=== PATIENT | male | born 1975 | race Caucasian/White ===

== ENCOUNTER 2019-04-22 08:32 | Emergency (ER) | payer SELFPAY ==
[2019-04-22 08:43] VITALS: BP 138/85; PULSE 91; RESP 16; TEMP 36.8; O2SAT 93; BMI 26.6
--- NOTE | 2019-04-22 08:46 | ED_ITS ---
HPI - Head Injury General Chief complaint: Fall Stated complaint: Fall,face injury, difficulty remembering Time Seen by Provider: 04/22/19 08:45 Source: patient Mode of arrival: Ambulatory Limitations: no limitations History of Present Illness HPI Narrative: This is a 43-year-old male comes to the emergency department with complaint of facial injuries. Patient states last night he was celebrating completing a tile job. Patient states he had 2 beers, he stumbled or tripped off a porch that was between 1 and 3 ft high falling onto his face and left hand. Patient states he has quite a bit of pain trying to move his jaw, he has laceration on his lip, he states his teeth feel intact. Patient states he had a headache last night it is improving now he has some bruising underneath his eye. Patient states he has broken his draw in the past and required surgery as well as what sounds like his maxillary bone. Patient states he has a history of PTSD and he is taking medication for this but does not take any other medications regularly. He denies any other surgeries. He states that he has pain in the proximal joint of his thumb he has difficulty with movement. He has a bit of abnormal anatomy but it is the same as the other hand. Patient describes them as monkey thumbs. He denies any nausea or vomiting, no chest pain or shortness of breath, no issues with bowel movements or urination. He denies any other injuries. He states his tetanus is definitely up-to-date. Related Data Previous Rx's Medication Instructions Recorded hydrocodone-acetaminophen [Chaplin] 1 tab PO Q6H PRN #10 tab 04/22/19 Allergies Allergy/AdvReac Type Severity Reaction Status Date / Time acetaminophen AdvReac Intermediate Verified 04/22/19 10:06 Review of Systems Review of Systems ROS Unobtainable: All systems reviewed & are unremarkable except as noted in HPI and below Patient History Medical History (Updated 04/22/19 @ 10:00 by Naomi Romero DO) PTSD (post-traumatic stress disorder) (Acute) Social History Smoking Status: Never smoker Exam Narrative Exam Narrative: GEN: Patient appears in mild distress. HEAD: See below, no raccoon/Irby sign. NECK: Nontender, painless range of motion, trachea midline Positive Nexus criteria, there is no line tenderness, distracting injury, altered mental status, neuro deficit, recent EtOH which was at midnight. EYES: PERRLA, EOMI ENT: Patient has some infraorbital ecchymosis on the left eye, he has a little bit of subconjunctival hemorrhage on the lateral left eye, trachea is midline, TM's are normal no hemotypanum, Nares are clear, no septal hematoma, no dental injury, patient has superficial laceration at the middle of lower lip slightly gapped and abrasion of the upper lip on the left inner side, there is no through and through, it is fairly superficial, airway is normal, patient has pain trying to open his jaw, he has some bony tenderness over the right mandible region. No obvious deformity. RESP: Chest is nontender and has symmetric movement, no ecchymosis, breath sounds are normal no crackles, wheezes or rales CVS: Heart sounds are normal, no murmur noted, No JVD. ABG/GI: Nontender, soft, normal bowel sounds, no distention, no organomegaly, pelvic rock is negative NEURO: Oriented AOx3, neuro is grossly intact, sensation and motor is normal all 4 extremities moving, cranial nerves II through XII are intact, GCS is 15 PSYCH: Normal mood and affect SKIN: Intact except as described above, warm and dry, no crepitus and without decubitus BACK: No CVA tenderness, no vertebral tenderness, no step-off's, no crepitus EXT: Atraumatic, patient's left thumb has some slight erythema he has pain and difficulty flexing at the thumb, he has normal sensation, he has some anatomic abnormality but this is the same as the right hand. No lacerations, no ecchymosis. Hips are nontender, no pedal edema, normal color and temperature, normal range of motion of extremities with normal tendon exam, 2+ pulses in all four extremities Initial Vital Signs Initial Vital Signs: Vital Signs Temperature 98.2 F 04/22/19 08:43 Pulse Rate 91 H 04/22/19 08:43 Respiratory Rate 16 04/22/19 08:43 Blood Pressure 138/85 04/22/19 08:43 Pulse Oximetry 93 04/22/19 08:43 Course Orders Ordered: ED Orders 04/22/19 09:01 CT cervical spine wo con Stat CT facial bones wo con Stat CT head/brain wo con Stat XR hand LT min 3V Stat Discontinued Medications Acetaminophen (Tylenol) 975 mg PO NOW ONE Stop: 04/22/19 10:00 Last Admin: 04/22/19 11:09 Dose: Not Given Documented by: ANA Hydrocodone Bitart/Acetaminophen (Chaplin 5/325) 1 tab PO NOW ONE Stop: 04/22/19 10:45 Last Admin: 04/22/19 11:15 Dose: Not Given Documented by: ANA Ibuprofen (Advil) 800 mg PO NOW ONE Stop: 04/22/19 11:10 Last Admin: 04/22/19 11:22 Dose: 800 mg Documented by: ANA Ibuprofen (Advil) 400 mg PO NOW ONE Stop: 04/22/19 11:15 Last Admin: 04/22/19 11:14 Dose: Not Given Documented by: ANA Vital Signs Vital signs: Vital Signs - 8 hr 04/22/19 11:15 Pulse Rate 86 Respiratory Rate 18 Blood Pressure [Right Arm] 105/81 Pulse Oximetry 98 MDM - Head Injury Imaging Data CT scan - head: Radiologist's impression: [place] [address] CT Scan Report Signed Patient: Rico Martínez JMR#: [id number] : 1975Acct:[id number] Age/Sex: 43 / MDate of Service: 04/22/19 Loc: ED Accession Number: [id number] Procedure: CT head/brain wo con Ordering Provider: Naomi Romero D.O. PROCEDURE: CT HEAD/BRAIN WO CON INDICATIONS: ground level fall TECHNIQUE: Noncontrast 4.5 mm thick angled axial sections acquired from the foramen magnum to the vertex, with coronal and sagittal reformats. For radiation dose reduction, the following was used: automated exposure control, adjustment of mA and/or kV according to patient size. COMPARISON: [facility], CR, XR HAND LT MIN 3V, 04/22/2019, 9:02. [facility], CT, CT FACIAL BONES WO CON, 04/22/2019, 9:01. [facility], CT, CT CERVICAL SPINE WO CON, 04/22/2019, 9:01. FINDINGS: Image quality: Excellent. CSF spaces: Basal cisterns are patent. No extra-axial fluid collections. Ventricles are normal in size and shape. Brain: No midline shift. No intracranial masses or hemorrhage. Sanchez-white matter interface is normal. Skull and face: Calvarium and visualized facial bones are intact, without suspicious lesions. Sinuses: Visualized sinuses and mastoids are clear. IMPRESSION: Normal intracranial study. No acute intracranial hemorrhage is seen. Dictated by: Noam Thomas M.D. on 04/22/2019 at 8:33 Approved by: oNam Thomas M.D. on 04/22/2019 at 8:35 CT facial bones: Radiologist's impression: [address] [address] [address] Scan Report Signed Patient: Rico Martínez JMR#: [id number] : 1975Acct:[id number] Age/Sex: 43 / MDate of Service: 04/22/19 Loc: ED Accession Number: [id number] Procedure: CT facial bones wo con Ordering Provider: Naomi Roemro D.O. PROCEDURE: CT FACIAL BONES WO CON INDICATIONS: ground level fall TECHNIQUE: Noncontrast 2.5 mm thick axial images acquired from the mandible through the frontal sinuses, with coronal and sagittal reformatting. For radiation dose reduction, the following was used: automated exposure control, adjustment of mA and/or kV according to patient size. COMPARISON: [facility], CR, XR HAND LT MIN 3V, 04/22/2019, 9:02. [facility], CT, CT HEAD/BRAIN WO CON, 04/22/2019, 9:01. [facility], CT, CT CERVICAL SPINE WO CON, 04/22/2019, 9:01. FINDINGS: Image quality: Excellent. Bones and teeth: Orbital thorpe are intact. Sinus thorpe show no fracture or deformity. Nasal bones and septum are intact. Visualized portions of the mandible demonstrate no fractures or subluxation. Zygomatic arches are intact. Pterygoid plates are intact. Visualized portions of the skull base and auditory canals are intact. There is a bone fissure seen on the right external auditory canal, as on series 4 images 79 and 80, which demonstrates a well corticated appearance and is attributed to a fusion anomaly and not an acute fracture. Sinuses: Paranasal sinuses are aerated, without fluid levels, mucosal thickening, or mucoceles. Mastoid air cells are aerated. Soft tissues: No edema, masses, or fluid collections. No enlarged lymph nodes. No soft tissue lacerations or debris. There is mild to moderate rightward chronic nasal septal deviation. Vascular: Visualized vascular structures appear normal in the absence of contrast. Bony vascular foramina and canals are intact. IMPRESSION: No acute fractures are seen. Dictated by: Noam Thomas M.D. on 04/22/2019 at 8:37 Approved by: Noam Thomas M.D. on 04/22/2019 at 8:39 CT cervical spine: Radiologist's impression: [place] [address] CT Scan Report Signed Patient: Rico Martínez JMR#: [id number] : 1975Acct:[id number] Age/Sex: 43 / MDate of Service: 04/22/19 Loc: ED Accession Number: [id number] Procedure: CT cervical spine wo con Ordering Provider: Naomi Romero D.O. PROCEDURE: CT CERVICAL SPINE WO CON INDICATIONS: ground level fall TECHNIQUE: Noncontrast 3 mm thick sections acquired from the skull base to the T4 level. Sagittal and coronal reformats were then constructed. For radiation dose reduction, the following was used: automated exposure control, adjustment of mA and/or kV according to patient size. COMPARISON: [facility], CR, XR HAND LT MIN 3V, 04/22/2019, 9:02. [facility], CT, CT HEAD/BRAIN WO CON, 04/22/2019, 9:01. [facility], CT, CT FACIAL BONES WO CON, 04/22/2019, 9:01. FINDINGS: Image quality: Excellent. Bones: No fractures or dislocations. Visualized superior ribs are intact. Focal C3-C4 degenerative change is seen, with mild to moderate disc space narrowing. Posteriorly projected endplate osteophytes are seen. Mild degenerative changes are seen elsewhere. Soft tissues: Prevertebral soft tissues are normal in thickness. No paravertebral hematomas. No apical pneumothoraces. IMPRESSION: No acute fractures are seen. Focal premature C3-C4 degenerative change. Dictated by: Noam Thomas M.D. on 04/22/2019 at 8:35 Approved by: Noam Thomas M.D. on 04/22/2019 at 8:37 hand xray: Radiologist's impression: Rico Martínez 43 M [address] [address] XRay Report Signed Patient: Rico Martínez JMR#: [id number] : 1975Acct:[id number] Age/Sex: 43 / MDate of Service: 04/22/19 Loc: ED Accession Number: [id number] Procedure: XR hand LT min 3V Ordering Provider: Naomi Romero D.O. PROCEDURE: XR HAND LT MIN 3V INDICATIONS: pain proximal thumb joint TECHNIQUE: 3 views of the hand(s) acquired. COMPARISON: [facility], CT, CT FACIAL BONES WO [facility], 04/22/2019, 9:01. [facility], CT, CT HEAD/BRAIN WO CON, 04/22/2019, 9:01. [facility], CT, CT CERVICAL SPINE WO CON, 04/22/2019, 9:01. FINDINGS: Bones: There is a potential fracture seen involving the distal 1st metacarpal. No additional focal bony abnormalities can be seen. Soft tissues: No suspicious soft tissue calcifications. IMPRESSION: Potential fracture of the distal 1st metacarpal. Differential diagnosis includes remote trauma, however. If it would be helpful for clinical management decision making, please consider a dedicated CT for further evaluation. Dictated by: Noam Thomas M.D. on 04/22/2019 at 8:39 Approved by: Noam Thomas M.D. on 04/22/2019 at 8:40 [facility] Narrative Medical decision making narrative: Patient has no fractures noted on CTs, xray on hand shows possible fracture 1st metacarpal and patient is tender, placed in thumb spica, nvi intact, plan for follow up with Orthopedic surgery this week. lip lacerations are superficial and should heal well without intervention. Patient ambulating in department without issue. Discharge Plan Departure Patient Disposition: Home Clinical Impression: First metacarpal bone fracture Qualifiers: Encounter type: initial encounter Fracture type: closed Laterality: left Laceration of lip Qualifiers: Encounter type: initial encounter Qualified Code(s): S01.511A - Laceration without foreign body of lip, initial encounter Head injury Qualifiers: Encounter type: initial encounter Qualified Code(s): S09.90XA - Unspecified injury of head, initial encounter Discharge Date/Time: 04/22/19 11:24 Instructions: Hand Fracture Activity Restrictions/Additional Instructions: Follow-up with Orthopedic surgery in the next 3-5 days, call Tuesday for an appointment. You may take Tylenol up to a 1000 mg every 8 hours as needed for pain. You take Chaplin 1 tablet every 6-8 hours as needed for pain instead of Tylenol. Do not take more than 3000 mg of Tylenol total in 24 hours. Chaplin does have 325 mg about Tylenol in each tablet. Splint Care: Keep splint clean and dry. Elevated affected body part to decrease swelling. OK to use ice pack on the affected body part. Use for 15-20 minutes each time, for 5-6x per day. If you develop worsening pain, numbness, tingling, discoloration of the affected body part, loosen the splint by loosening the NIRAJ wrap, and either see your doctor for an urgent re-assessment, or return to the Emergency Department. Return to the Emergency Department for any new or worsening symptoms. return if you are having sudden severe headaches, new vision changes, passing out, persistent vomiting, new weakness numbness or loss of sensation other new or concerning symptoms. Prescriptions: New hydrocodone-acetaminophen [Chaplin] 5-325 mg tablet 1 tab PO Q6H PRN (Reason: pain) Qty: 10 RF: 0 Referrals: Maciej Dumont MD [Physician] -
--- NOTE | 2019-04-22 09:01 | DI.CT.S_ITS ---
PROCEDURE: CT FACIAL BONES WO CON INDICATIONS: ground level fall TECHNIQUE: Noncontrast 2.5 mm thick axial images acquired from the mandible through the frontal sinuses, with coronal and sagittal reformatting. For radiation dose reduction, the following was used: automated exposure control, adjustment of mA and/or kV according to patient size. COMPARISON: [facility], CR, XR HAND LT MIN 3V, 04/22/2019, 9:02. [facility], CT, CT HEAD/BRAIN WO CON, 04/22/2019, 9:01. [facility], CT, CT CERVICAL SPINE WO CON, 04/22/2019, 9:01. FINDINGS: Image quality: Excellent. Bones and teeth: Orbital thorpe are intact. Sinus thorpe show no fracture or deformity. Nasal bones and septum are intact. Visualized portions of the mandible demonstrate no fractures or subluxation. Zygomatic arches are intact. Pterygoid plates are intact. Visualized portions of the skull base and auditory canals are intact. There is a bone fissure seen on the right external auditory canal, as on series 4 images 79 and 80, which demonstrates a well corticated appearance and is attributed to a fusion anomaly and not an acute fracture. Sinuses: Paranasal sinuses are aerated, without fluid levels, mucosal thickening, or mucoceles. Mastoid air cells are aerated. Soft tissues: No edema, masses, or fluid collections. No enlarged lymph nodes. No soft tissue lacerations or debris. There is mild to moderate rightward chronic nasal septal deviation. Vascular: Visualized vascular structures appear normal in the absence of contrast. Bony vascular foramina and canals are intact. IMPRESSION: No acute fractures are seen. Dictated by: Noam Thomas M.D. on 04/22/2019 at 8:37 Approved by: Noam Thomas M.D. on 04/22/2019 at 8:39
--- NOTE | 2019-04-22 09:01 | DI.CT.S_ITS ---
PROCEDURE: CT HEAD/BRAIN WO CON INDICATIONS: ground level fall TECHNIQUE: Noncontrast 4.5 mm thick angled axial sections acquired from the foramen magnum to the vertex, with coronal and sagittal reformats. For radiation dose reduction, the following was used: automated exposure control, adjustment of mA and/or kV according to patient size. COMPARISON: [facility], CR, XR HAND LT MIN 3V, 04/22/2019, 9:02. [facility], CT, CT FACIAL BONES WO CON, 04/22/2019, 9:01. [facility], CT, CT CERVICAL SPINE WO CON, 04/22/2019, 9:01. FINDINGS: Image quality: Excellent. CSF spaces: Basal cisterns are patent. No extra-axial fluid collections. Ventricles are normal in size and shape. Brain: No midline shift. No intracranial masses or hemorrhage. Sanchez-white matter interface is normal. Skull and face: Calvarium and visualized facial bones are intact, without suspicious lesions. Sinuses: Visualized sinuses and mastoids are clear. IMPRESSION: Normal intracranial study. No acute intracranial hemorrhage is seen. Dictated by: Noam Thomas M.D. on 04/22/2019 at 8:33 Approved by: Noam Thomas M.D. on 04/22/2019 at 8:35
--- NOTE | 2019-04-22 09:01 | DI.RAD.S_ITS ---
PROCEDURE: XR HAND LT MIN 3V INDICATIONS: pain proximal thumb joint TECHNIQUE: 3 views of the hand(s) acquired. COMPARISON: [facility], CT, CT FACIAL BONES WO [facility], 04/22/2019, 9:01. [facility], CT, CT HEAD/BRAIN WO [facility], 04/22/2019, 9:01. [facility], CT, CT CERVICAL SPINE WO [facility], 04/22/2019, 9:01. FINDINGS: Bones: There is a potential fracture seen involving the distal 1st metacarpal. No additional focal bony abnormalities can be seen. Soft tissues: No suspicious soft tissue calcifications. IMPRESSION: Potential fracture of the distal 1st metacarpal. Differential diagnosis includes remote trauma, however. If it would be helpful for clinical management decision making, please consider a dedicated CT for further evaluation. Dictated by: Noam Thomas M.D. on 04/22/2019 at 8:39 Approved by: Noam Thomas M.D. on 04/22/2019 at 8:40
--- NOTE | 2019-04-22 09:01 | DI.CT.S_ITS ---
PROCEDURE: CT CERVICAL SPINE WO CON INDICATIONS: ground level fall TECHNIQUE: Noncontrast 3 mm thick sections acquired from the skull base to the T4 level. Sagittal and coronal reformats were then constructed. For radiation dose reduction, the following was used: automated exposure control, adjustment of mA and/or kV according to patient size. COMPARISON: [facility], CR, XR HAND LT MIN 3V, 04/22/2019, 9:02. [facility], CT, CT HEAD/BRAIN WO CON, 04/22/2019, 9:01. [facility], CT, CT FACIAL BONES WO CON, 04/22/2019, 9:01. FINDINGS: Image quality: Excellent. Bones: No fractures or dislocations. Visualized superior ribs are intact. Focal C3-C4 degenerative change is seen, with mild to moderate disc space narrowing. Posteriorly projected endplate osteophytes are seen. Mild degenerative changes are seen elsewhere. Soft tissues: Prevertebral soft tissues are normal in thickness. No paravertebral hematomas. No apical pneumothoraces. IMPRESSION: No acute fractures are seen. Focal premature C3-C4 degenerative change. Dictated by: Noam Thomas M.D. on 04/22/2019 at 8:35 Approved by: Noam Thomas M.D. on 04/22/2019 at 8:37
[2019-04-22 11:15] VITALS: BP 105/81; PULSE 86; RESP 18; O2SAT 98
[2019-04-22] MEDS: IBUPROFEN 400 MG TABLET 800 MG PO (11:22)
== END 2019-04-22 11:24 | disposition home or self-care (01) ==
PROVIDERS: Emergency Provider Emergency Medicine
DX: S62.202A Unspecified fracture of first metacarpal bone, left hand, initial encounter for closed fracture (principal); S01.511A Laceration without foreign body of lip, initial encounter; S09.90XA Unspecified injury of head, initial encounter; W10.8XXA Fall (on) (from) other stairs and steps, initial encounter
CPT/HCPCS: 70450; 70486; 72125; 73130; 99283; 99284

== ENCOUNTER → 2019-11-16 10:50 | Outpatient (CLI) | payer MEDICARE, OTHER, MEDICAID, SELFPAY ==
--- NOTE | 2019-11-16 | DI.RAD.S_ITS ---
PROCEDURE: XR LUMBAR SPINE MIN 4V INDICATIONS: LOW BACK PAIN FROM FALL TECHNIQUE: 5 total views of the lumbar spine were acquired, including bilateral oblique views. COMPARISON: None. FINDINGS: Bones: Grade 1 anterolisthesis is seen at the L5-S1 level, with associated bilateral pars defects. No additional pars fractures are seen. There is minimal retrolisthesis seen at L4-L5 level. 5 nonrib-bearing vertebrae are present. No vertebral body compression fractures. No suspicious bony lesions. There is mild disc space narrowing at L4-L5 and moderate disc space narrowing at L5-S1. Endplate irregularity and sclerosis are seen, which are most prominent at the L5-S1 level. Soft tissues: Overlying bowel gas pattern is normal. No suspicious soft tissue calcifications. IMPRESSION: Grade 1 L5-S1 anterolisthesis, with associated bilateral pars defects and associated degenerative change. Dictated by: Noam Thomas M.D. on 11/16/2019 at 12:04 Approved by: Noam Thomas M.D. on 11/16/2019 at 12:05
== END ==
PROVIDERS: Referring Provider Physician Assistant; Visit Provider Physician Assistant
DX: M54.5 Low back pain (principal); M43.17 Spondylolisthesis, lumbosacral region; M47.817 Spondylosis without myelopathy or radiculopathy, lumbosacral region
CPT/HCPCS: 72110

== ENCOUNTER 2020-01-19 01:41 | Emergency (ER) | payer MEDICARE, OTHER, MEDICAID, SELFPAY ==
[2020-01-19 01:50] VITALS: BP 150/79; PULSE 73; RESP 16; TEMP 36.6; O2SAT 100; BMI 26.6
--- NOTE | 2020-01-19 01:50 | DI.US.S_ITS ---
PROCEDURE: US PERIPH VENOUS LOW EXTREM LT INDICATIONS: PAIN, SWELLING, RECENT INJURY TECHNIQUE: Real-time imaging, as well as color and pulse Doppler interrogation, were performed of the lower extremity deep veins from the inguinal ligament to the popliteal fossa. COMPARISON: None. FINDINGS: The common femoral, femoral and popliteal veins are normally compressible, and free of intraluminal thrombus. Color and pulse Doppler demonstrate normal phasic intraluminal flow. There is normal augmentation response to distal compression maneuver. Left lower extremity edema is present. IMPRESSION: 1. No evidence of left lower extremity DVT. 2. Left lower extremity edema. 3. Concordant with preliminary interpretation. Dictated by: Kindra Sweet M.D. on 01/19/2020 at 7:28 Approved by: Kindra Sweet M.D. on 01/19/2020 at 7:29
--- NOTE | 2020-01-19 01:50 | DI.RAD.S_ITS ---
PROCEDURE: XR HIP W PEL IF DONE LT 2V INDICATIONS: fall with left hip pain TECHNIQUE: AP pelvis with lateral view(s) of the left hip(s). COMPARISON: None. FINDINGS: Bones: No fractures or dislocations. Pelvic ring appears intact. No suspicious bony lesions. Mild bilateral hip joint space narrowing and periarticular osteophyte formation. Soft tissues: The visualized bowel gas pattern is normal. No suspicious soft tissue calcifications. IMPRESSION: No acute fracture. No osseous lesion. If symptoms and/or clinical suspicion for pathology persist, further assessment with repeat, or advanced imaging (e.g., CT, MRI, or bone scan) may be helpful for further assessment. Dictated by: Kindra Sweet M.D. on 01/19/2020 at 6:58 Approved by: Kindra Sweet M.D. on 01/19/2020 at 6:59
[2020-01-19 01:51] VITALS: PULSE 74; O2SAT 99
[2020-01-19 02:00] VITALS: PULSE 66; O2SAT 96
[2020-01-19 02:01] VITALS: BP 118/64; PULSE 63; O2SAT 98
[2020-01-19 02:30] VITALS: BP 129/60; PULSE 61; O2SAT 97
[2020-01-19 02:30] LABS: Hematocrit 32.6 % (41-53); Hemoglobin 10.9 g/dL (13.5-17.5)
[2020-01-19 03:00] VITALS: PULSE 62; O2SAT 98
--- NOTE | 2020-01-19 03:25 | ED_ITS ---
HPI - Extremity Injury (Lower) General Chief Complaint: Extremity Injury, Lower Stated Complaint: bruise most of left side with swelling Time Seen by Provider: 01/19/20 01:44 Source: patient Mode of arrival: Ambulatory Limitations: no limitations History of Present Illness HPI Narrative: 44 year old male non smoker with history of PTSD presents with a significant other and the chief complaint of ongoing left hip pain and bruising for the past few days. A few days ago he was on a rope swing and fell from a few feet onto his left hip. He was seen and evaluated at an outside facility on the first day and had a reassuring exam with normal imaging. Since then he has developed a larger hematoma on his left hip and thigh and now has some swelling in his calf as well. He denies other injury. He denies numbness or tingling. He takes no blood thinners. His pain worsens with motion and palpation and improves with rest MD complaint: hip injury Onset (ago): day(s) Injury: Left: hip Type of Injury: blunt Place: street/outdoors Severity: moderate Relieving factors: rest Exacerbating factors: movement and palpation Context: fall and direct blow Associated symptoms: ambulatory Other symptoms: none Treatments prior to arrival: cold therapy and NSAIDS Related Data Previous Rx's Medication Instructions Recorded hydrocodone-acetaminophen [[place]] 1 tab PO Q6H PRN #10 tab 04/22/19 ketorolac 10 mg PO Q6H PRN #14 tab 01/19/20 ketorolac 10 mg PO TID PRN 5 Days tab 01/19/20 tramadol 50 mg PO Q8H PRN #14 tab 01/19/20 Allergies Allergy/AdvReac Type Severity Reaction Status Date / Time acetaminophen AdvReac Intermediate Verified 04/22/19 10:06 Review of Systems Constitutional Constitutional: Denies chills, Denies fatigue, Denies fever(s), Denies frequent falls, Denies lethargy and Denies weakness Eyes Eyes: Denies change in vision, Denies eye discharge, Denies irritation and Denies loss of vision ENT Ears, Nose, Mouth, and Throat: Denies change in voice, Denies dizziness, Denies neck pain, Denies sore throat and Denies throat swelling Cardiovascular Cardiovascular: Denies chest pain, Denies irregular heart rhythm, Denies ligh theadedness, Denies palpitations, Denies dyspnea, Denies dyspnea on exertion and Denies orthopnea Respiratory Respiratory: Denies cough, Denies dyspnea, Denies dyspnea on exertion and Denies wheezing Gastrointestinal Gastrointestinal: Denies abdominal pain, Denies change in bowel habits, Denies diarrhea, Denies nausea and Denies vomiting Musculoskeletal Musculoskeletal: Reports joint swelling, Reports limited range of motion, Denies neck pain and Denies numbness Integumentary/Breasts Skin/Breast: Denies pruritus, Denies erythema, Denies rash, Reports skin pain, Reports skin swelling, Reports unusual bruising and Denies wounds Neurologic Neurologic: Denies behavioral changes, Denies confusion, Denies dizziness, Denies frequent falls, Denies loss of vision, Denies numbness and Denies weakness Psychiatric Psychiatric: Denies anxiety, Denies behavioral changes, Denies confusion, Denies depression, Denies homicidal ideation and Denies suicidal ideation Endocrine Endocrine: Denies fatigue, Denies flushing and Denies palpitations Hematologic/Lymphatic Hematologic/Lymphatic: Denies easy bruising Allergic/Immunologic Allergic/Immunologic: Denies urticaria, Denies throat swelling and Denies whe ezing Patient History Medical History PTSD (post-traumatic stress disorder) (Acute) Social History Smoking Status: Never smoker Smoking Status: Never smoker alcohol intake frequency: 0-2 drinks per day Substance Use Type: marijuana Exam Narrative Exam Narrative: GENERAL: [44] year old patient appears stated age. Well- nourished, well-developed patient, in mild distress. GCS 15 HEAD: Atraumatic. Normocephalic. EYES: Pupils equal round and reactive. Extraocular motions intact. No scleral icterus. No injection or drainage. ENT: Nose without bleeding, purulent drainage. Throat without erythema, t onsillar hypertrophy or exudate. Airway patent. NECK: Trachea midline. Non tender CARDIOVASCULAR: Regular rate and rhythm without murmurs, gallops, or rubs. RESPIRATORY: Clear to auscultation. Breath sounds equal bilaterally. No wheezes, rales, or rhonchi. GASTROINTESTINAL: Abdomen soft, non-tender, nondistended. EXTREMITIES: Large dark purple hematoma on left hip and lateral thigh. Minimal bony point tenderness, compartments are soft, patient has full range of motion and remained neurovascularly intact. Patient has very minimal swelling in his left calf but does have pain on palpation BACK: Nontender without deformity or crepitance. No flank tenderness. NEURO: AOx3. SKIN: No rash or erythema of visible areas Initial Vital Signs Initial Vital Signs: Vital Signs Temperature 98 F 01/19/20 01:50 Pulse Rate 73 01/19/20 01:50 Respiratory Rate 16 01/19/20 01:50 Blood Pressure 150/79 H 01/19/20 01:50 Pulse Oximetry 100 01/19/20 01:50 Course Orders Ordered: ED Orders 01/19/20 01:50 US periph venous low extrem lt Stat XR hip w pel if done LT 2V Stat 01/19/20 02:20 Hemoglobin and Hematocrit Stat Discontinued Medications Tramadol HCl (Ultram 50mg Prepack) 1 bottle MISC SEEINSTR ONE Stop: 01/19/20 03:23 Last Admin: 01/19/20 03:41 Dose: 1 bottle Documented by: STARLA Vital Signs Vital signs: Vital Signs - 8 hr 01/19/20 01:50 01/19/20 01:51 01/19/20 02:00 Temperature 98 F Pulse Rate 73 74 66 Respiratory Rate 16 Blood Pressure 150/79 H Pulse Oximetry 100 99 96 01/19/20 02:01 01/19/20 02:30 01/19/20 03:00 Temperature Pulse Rate 63 61 62 Respiratory Rate Blood Pressure 118/64 129/60 Pulse Oximetry 98 97 98 MDM - Extremity Injury (Lower) Lab Data Result diagrams: 01/19/20 02:20 Labs: Lab Results 01/19/20 Range/Units 02:20 Hgb 10.9 L (13.5-17.5) g/dL Hct 32.6 L (41-53) % Urine Dip Bedside Urine Glucose Negative Bedside Urine Bilirubin - Negative Bedside Urine Ketone - Negative Urine Specific [place] 1.015 Bedside Urine Occult Blood - Negative Bedside Urine pH 6 Bedside Urine Protein - Negative Bedside Urine Urobilinogen - Negative Bedside Urine Nitrite - Negative Bedside Urine Leukocytes - Negative Esterase Imaging Data Extremity x-ray #1: Attestation: I personally reviewed and interpreted this imaging study as follows: My Impression: No Pelvic or hip fracture US - DVT: Radiologist's Impression: No DVT Discharge Plan Departure Patient Disposition: Home Clinical Impression: Hematoma of left hip Qualifiers: Encounter type: initial encounter Qualified Code(s): S70.02XA - Contusion of left hip, initial encounter Discharge Date/Time: 01/19/20 04:11 Instructions: DI for Hematoma (Bruise) Activity Restrictions/Additional Instructions: *You have been diagnosed with [ traumatic left hip / thigh hematoma ] *What to do: *Take medications as directed *Follow up with your primary care provider in 2-3 days, call for an appointment. Let them know you were seen in the Emergency Department and that we ask that you be seen in follow up *Return to ER if you should have any new, worsening or concerning symptoms Prescriptions: New tramadol 50 mg tablet 50 mg PO Q8H PRN (Reason: pain) Qty: 14 RF: 0 ketorolac 10 mg tablet 10 mg PO TID PRN (Reason: pain) 5 Days RF: 0 ketorolac 10 mg tablet 10 mg PO Q6H PRN (Reason: pain) Qty: 14 RF: 0 No Action hydrocodone-acetaminophen [[place]] 5-325 mg tablet 1 tab PO Q6H PRN (Reason: pain) Qty: 10 RF: 0 Referrals: Steven Nolan MD [Primary Care Provider] -
[2020-01-19] MEDS: TRAMADOL 50 MG PREPACK 1 BOTTLE MISC (03:41)
== END 2020-01-19 04:11 | disposition home or self-care (01) ==
PROVIDERS: Emergency Provider Emergency Medicine; PCP Family Medicine
DX: S70.02XA Contusion of left hip, initial encounter (principal); W09.1XXA Fall from playground swing, initial encounter
CPT/HCPCS: 36415; 73502; 81003; 85014; 85018; 93971; 99284

== ENCOUNTER 2020-06-21 14:57 | Emergency (ER) | payer MEDICARE, OTHER, MEDICAID, SELFPAY ==
[2020-06-21 15:06] VITALS: BP 132/60; PULSE 72; RESP 16; TEMP 36.5; O2SAT 99; BMI 23.6
--- NOTE | 2020-06-21 15:11 | DI.RAD.S_ITS ---
PROCEDURE: XR FOOT LT MIN 3V INDICATIONS: kicked a wall, and fell on elbow TECHNIQUE: 3 views of the foot were acquired. COMPARISON: [facility], CR, XR ELBOW LT MIN 3V, 06/21/2020, 15:13. FINDINGS: Bones: There is a comminuted, intra-articular fracture of the proximal aspect of the distal phalanx of the great toe. No dislocations. No suspicious bony lesions. Incidental note is made of an accessory ossicle, an os trigonum. Degenerative changes are seen, which are most prominent involving the 1st ray. Soft tissues: No tibiotalar joint effusion. Achilles tendon appears normal. IMPRESSION: Comminuted, intra-articular fracture of the proximal aspect of the distal phalanx of the great toe. Dictated by: Noam Thomas M.D. on 06/21/2020 at 14:50 Approved by: Noam Thomas M.D. on 06/21/2020 at 14:52
--- NOTE | 2020-06-21 15:11 | DI.RAD.S_ITS ---
PROCEDURE: XR ELBOW LT MIN 3V INDICATIONS: kicked a wall, and fell on elbow TECHNIQUE: 3 views of the elbow were acquired. COMPARISON: [facility], CR, XR FOOT LT MIN 3V, 06/21/2020, 15:13. FINDINGS: Bones: No fractures or dislocations. No suspicious bony lesions. Soft tissues: Mild generalized soft tissue swelling is seen. IMPRESSION: Unremarkable left elbow plain films. Dictated by: Noam Thomas M.D. on 06/21/2020 at 14:49 Approved by: Noam Thomas M.D. on 06/21/2020 at 14:50
[2020-06-21] MEDS: HYDROCODONE/ACET 5/325 PREPACK 1 BOTTLE MISC (17:04)
[2020-06-21 17:16] VITALS: BP 125/78; PULSE 64; RESP 16; O2SAT 99
[2020-06-21] MEDS: ONDANSETRON 4 MG ODT PREPACK 1 BOTTLE MISC (17:17)
--- NOTE | 2020-06-21 19:00 | ED_ITS ---
HPI - Extremity Injury (Lower) General Chief Complaint: Extremity Injury, Lower Stated Complaint: thinks broke his foot left toe, left elbow pain Time Seen by Provider: 06/21/20 16:35 Source: patient and family Mode of arrival: Ambulatory Limitations: no limitations History of Present Illness HPI Narrative: 44-year-old male smoker with a noncontributory medical history presents with a chief complaint of an injury to his left great toe and left elbow over the past day. He was running after his dog who was chasing equal in a dark ball when he ran his toe into a hard object at full speed. He then fell onto his left elbow. He denies any head neck or back pain. He states his left elbow hurts worse when he moves and improves with rest. He denies any numbness, tingling or weakness. His primary complaint is of his left great toe which has become bruised and significantly painful with any range of motion or palpation. MD complaint: foot injury Onset (ago): hour(s) Injury: Left: toes Type of Injury: blunt Place: street/outdoors Severity: moderate Relieving factors: rest Exacerbating factors: weight bearing, movement and palpation Context: direct blow Associated symptoms: snap/pop sensation, swelling and able to partially bear weight Other symptoms: none Treatments prior to arrival: cold therapy Related Data Previous Rx's Medication Instructions Recorded hydrocodone-acetaminophen [[place]] 1 tab PO Q6H PRN #10 tab 04/22/19 ketorolac 10 mg PO Q6H PRN #14 tab 01/19/20 tramadol 50 mg PO Q8H PRN #14 tab 01/19/20 Allergies Allergy/AdvReac Type Severity Reaction Status Date / Time acetaminophen AdvReac Intermediate Verified 04/22/19 10:06 Review of Systems Constitutional Constitutional: Denies chills, Denies fatigue, Denies fever(s), Denies frequent falls, Denies lethargy and Denies weakness Eyes Eyes: Denies change in vision, Denies eye discharge, Denies irritation and Denies loss of vision ENT Ears, Nose, Mouth, and Throat: Denies change in voice, Denies dizziness, Denies neck pain, Denies sore throat and Denies throat swelling Cardiovascular Cardiovascular: Denies chest pain, Denies irregular heart rhythm, Denies lightheadedness, Denies palpitations, Denies dyspnea, Denies dyspnea on exertion and Denies orthopnea Respiratory Respiratory: Denies cough, Denies dyspnea, Denies dyspnea on exertion and Denies wheezing Gastrointestinal Gastrointestinal: Denies abdominal pain, Denies change in bowel habits, Denies diarrhea, Denies nausea and Denies vomiting Musculoskeletal Musculoskeletal: Reports arthralgias, Reports joint swelling, Reports limited range of motion, Denies neck pain and Denies numbness Integumentary/Breasts Skin/Breast: Denies pruritus, Denies erythema, Denies rash and Denies wounds Neurologic Neurologic: Denies behavioral changes, Denies confusion, Denies dizziness, Denies frequent falls, Denies loss of vision, Denies numbness and Denies weakness Psychiatric Psychiatric: Denies anxiety, Denies behavioral changes, Denies confusion, Denies depression, Denies homicidal ideation and Denies suicidal ideation Endocrine Endocrine: Denies fatigue, Denies flushing and Denies palpitations Hematologic/Lymphatic Hematologic/Lymphatic: Denies easy bruising Allergic/Immunologic Allergic/Immunologic: Denies urticaria, Denies throat swelling and Denies wheezing Patient History Medical History PTSD (post-traumatic stress disorder) Social History Smoking Status: Current every day smoker Smoking Status: Current every day smoker tobacco type: cigarettes alcohol intake frequency: 0-2 drinks per day Substance Use Type: marijuana Exam Narrative Exam Narrative: GEN: AOx3 and in mild distress EYES: Pupils are equal, round, and reactive to light and accommodation. Extraoccular muscles are intact bilaterally. There is no subconjunctival hemorrhage or exudate. CHEST: Lungs are clear to auscultation bilaterally and free of wheezes, rales, or rhonchi. Heart rate is regular rhythm, there are no murmurs, clicks, rubs, or gallops. There is no chest wall tenderness. ABD: Abdomen is soft and nontender. There is no guarding or rebound. Bowel sounds are normal in all 4 quadrants. There is no mass or organomegaly. EXT: Left great toe swollen, tender, ecchymotic, closed, neurovascularly intact. Left elbow with full, painful range of motion and some mild swelling over the olecranon. SKIN: Warm, pink, and dry. No erythema or rash Initial Vital Signs Initial Vital Signs: Vital Signs Temperature 97.7 F 06/21/20 15:06 Pulse Rate 72 06/21/20 15:06 Respiratory Rate 16 06/21/20 15:06 Blood Pressure 132/60 06/21/20 15:06 Pulse Oximetry 99 06/21/20 15:06 Procedures Orthopedic Splinting/Casting Injury #1: Side: left Lower Extremity Injury Location: toe Lower Extremity Immobilizer: post-op shoe Post splinting neuro exam: intact Post splinting vascular exam: intact Placed by: Nursing Course Orders Ordered: ED Orders 06/21/20 15:11 XR elbow LT min 3V Stat XR foot LT min 3V Stat Discontinued Medications Hydrocodone Bitart/Acetaminophen (Hydrocodone/Acet 5/325 Prepack) 1 bottle MISC SEEINSTR ONE Stop: 06/21/20 17:01 Last Admin: 06/21/20 17:04 Dose: 1 bottle Documented by: JESSICA Ondansetron HCl (Ondansetron 4 Mg Odt Prepack) 1 bottle MISC SEEINSTR ONE Stop: 06/21/20 17:13 Last Admin: 06/21/20 17:17 Dose: 1 bottle Documented by: JESSICA Consultations Consultation #1: Discussed with on-call orthopedist, he has reviewed images, suggest likely non operative, recommends postoperative shoe, weight to heel only, follow-up Vital Signs Vital signs: Vital Signs - 8 hr 06/21/20 15:06 06/21/20 17:16 Temperature 97.7 F Pulse Rate 72 64 Respiratory Rate 16 16 Blood Pressure 132/60 125/78 Pulse Oximetry 99 99 MDM - Extremity Injury (Lower) Imaging Data Extremity x-ray #1: Radiologist's Impression: [address] [id number] ReportSigned Patient: Rico Martínez JMR#: [id number]: 1975Acct:[id number]/Sex: 44 / MDate of Service: 06/21/20Loc: EDAccession Number: [id number] Procedure: XR foot LT min 3V Ordering Provider: Jan Dougherty D.O. PROCEDURE: XR FOOT LT MIN 3V INDICATIONS: kicked a wall, and fell on elbow TECHNIQUE: 3 views of the foot were acquired. COMPARISON: [facility], CR, XR ELBOW LT MIN 3V, 06/21/2020, 15:13. FINDINGS: Bones: There is a comminuted, intra-articular fracture of the proximal aspect of the distal phalanx of the great toe. No dislocations. No suspicious bony lesions. Incidental note is made of an accessory ossicle, an os trigonum. Degenerative changes are seen, which are most prominent involving the 1st ray. Soft tissues: No tibiotalar joint effusion. Achilles tendon appears normal. IMPRESSION: Comminuted, intra-articular fracture of the proximal aspect of the distal phalan x of the great toe. Dictated by: Noam Thomas M.D. on 06/21/2020 at 14:50 Approved by: Noam Thomas M.D. on 06/21/2020 at 14:[address] [id number] ReportSigned Patient: Rico Martínez JMR#: [id number]: [id number]:[id number]/Sex: 44 / MDate of Service: 06/21/20Loc: EDAccession Number: [id number] Procedure: XR elbow LT min 3V Ordering Provider: Jan Dougherty D.O. PROCEDURE: XR ELBOW LT MIN 3V INDICATIONS: kicked a wall, and fell on elbow TECHNIQUE: 3 views of the elbow were acquired. COMPARISON: [facility], , XR FOOT LT MIN 3V, 06/21/2020, 15:13. FINDINGS: Bones: No fractures or dislocations. No suspicious bony lesions. Soft tissues: Mild generalized soft tissue swelling is seen. IMPRESSION: Unremarkable left elbow plain films. Dictated by: Noam Thomas M.D. on 06/21/2020 at 14:49 Approved by: Noam Thomas M.D. on 06/21/2020 at 14:50 Discharge Plan Departure Patient Disposition: Home Clinical Impression: Closed fracture of left great toe Instructions: DI for Toe Fracture Activity Restrictions/Additional Instructions: *You have been diagnosed with [left big toe fracture, left elbow contusion] *What to do: *Take medications as directed *Follow up with [facility], call for an appointment. Let them know you were seen in the Emergency Department and that we ask that you be seen in follow up *Return to ER if you should have any new, worsening or concerning symptoms Weight bearing with heel only until follow up Prescriptions: No Action hydrocodone-acetaminophen [[place]] 5-325 mg tablet 1 tab PO Q6H PRN (Reason: pain) Qty: 10 RF: 0 tramadol 50 mg tablet 50 mg PO Q8H PRN (Reason: pain) Qty: 14 RF: 0 ketorolac 10 mg tablet 10 mg PO Q6H PRN (Reason: pain) Qty: 14 RF: 0 Referrals: Steven Santos MD [Physician] - Steven Nolan MD [Primary Care Provider] -
== END 2020-06-21 17:22 | disposition home or self-care (01) ==
PROVIDERS: Emergency Provider Emergency Medicine; PCP Family Medicine
DX: S92.402A Displaced unspecified fracture of left great toe, initial encounter for closed fracture (principal); M25.522 Pain in left elbow; W22.8XXA Striking against or struck by other objects, initial encounter; F43.10 Post-traumatic stress disorder, unspecified
CPT/HCPCS: 73080; 73630; 99281; 99283

== ENCOUNTER 2020-07-26 15:17 | Emergency (ER) | payer OTHER, MEDICARE, MEDICAID, SELFPAY ==
[2020-07-26 15:48] VITALS: BP 154/73; PULSE 65; RESP 16; TEMP 36.8; O2SAT 99
--- NOTE | 2020-07-26 17:10 | PC.NURSE ---
patient states he fell at work last october. has an ongoing LnI claim, states he has had an MRI approved just not scheduled yet. Denies drug seeking, states he gets 1 vicodin a night from pain clinic. States he has had toradol in the past and it worked for a few hours providing pain relief. he comes in today because nothing is working and he just wants a break from the pain.
--- NOTE | 2020-07-26 17:16 | PC.NURSE ---
Patient states his pain has now moved into his groin area. urine collected for UAC
[2020-07-26 17:41] LABS: Bacteria Urine None Seen; RBC Urine None Seen (0-5/HPF); WBC Urine None Seen (0-5/HPF)
[2020-07-26 17:51] LABS: Appearance Urine UA CLEAR; Bilirubin Urine UA NEGATIVE (NEGATIVE); Color Urine UA YELLOW; Glucose Urine UA NEGATIVE (Negative); Ketones Urine UA NEGATIVE (NEGATIVE); Leukocyte Esterase Urine UA NEGATIVE (NEGATIVE); Nitrite Urine UA NEGATIVE (Negative); Occult Blood Urine UA NEGATIVE (Negative); Protein Urine UA NEGATIVE (Negative); Specific Gravity Urine UA 1.015 (1.000-1.035); Urobilinogen Urine UA 0.2 E.U./dL (0.2); pH Urine UA 7.5 (4.5-8.0)
--- NOTE | 2020-07-26 18:06 | ED_ITS ---
HPI - Back Pain/Injury General Chief Complaint: Back Pain/Injury Stated Complaint: States bad back, fall at work Time Seen by Provider: 07/26/20 17:58 Source: patient and family Mode of arrival: Ambulatory Limitations: no limitations History of Present Illness HPI Narrative: 44-year-old smoker with chronic low back pain relating to a work injury about a year ago states that his pain is poorly controlled with the c urrent regimen. He states that he has had severe right-sided lower back pain with radiation into his right leg since that initial work injury. He denies any numbness, tingling or weakness. He denies any loss of control of bowel or bladder. He denies lower extremity weakness or footdrop. He denies the use of IV drugs and does not use blood thinners. He has had no new injury or trauma. His current regimen includes only 1 hydrocodone daily and he states this is doing little to nothing to help. He has not been prescribed steroids, gabapentin or other. He is in the process of trying to schedule a lumbar MRI. MD Complaint: back pain Onset (ago): month(s) Duration: constant Similar Symptoms Previously: Yes Location: lumbar spine and right lower back Severity: severe Quality: sharp and stabbing Radiation: right leg Exacerbating factors: walking Context: fall Associated symptoms: denies other symptoms Treatments prior to arrival: prescription analgesics Related Data Previous Rx's Medication Instructions Recorded hydrocodone-acetaminophen [[place]] 1 tab PO Q6H PRN #10 tab 04/22/19 ketorolac 10 mg PO Q6H PRN #14 tab 01/19/20 tramadol 50 mg PO Q8H PRN #14 tab 01/19/20 gabapentin 300 mg PO BEDTIME #14 cap 07/26/20 prednisone See Rx Instructions .ROUTE 07/26/20 .COMPLEX #30 tab Allergies Allergy/AdvReac Type Severity Reaction Status Date / Time acetaminophen AdvReac Intermediate Verified 07/26/20 15:55 Review of Systems Constitutional Constitutional: Denies chills, Denies fatigue, Denies fever(s), Denies frequent falls, Denies lethargy and Denies weakness Eyes Eyes: Denies change in vision, Denies eye discharge, Denies irritation and Denies loss of vision ENT Ears, Nose, Mouth, and Throat: Denies change in voice, Denies dizziness, Denies neck pain, Denies sore throat and Denies throat swelling Cardiovascular Cardiovascular: Denies chest pain, Denies irregular heart rhythm, Denies lightheadedness, Denies palpitations, Denies dyspnea, Denies dyspnea on exertion and Denies orthopnea Respiratory Respiratory: Denies cough, Denies dyspnea, Denies dyspnea on exertion and Denies wheezing Gastrointestinal Gastrointestinal: Denies abdominal pain, Denies change in bowel habits, Denies diarrhea, Denies nausea and Denies vomiting Musculoskeletal Musculoskeletal: Reports back pain, Denies neck pain and Denies numbness Integumentary/Breasts Skin/Breast: Denies pruritus, Denies erythema, Denies rash and Denies wounds Neurologic Neurologic: Denies behavioral changes, Denies confusion, Denies dizziness, Hugh es frequent falls, Denies loss of vision, Denies numbness and Denies weakness Psychiatric Psychiatric: Denies anxiety, Denies behavioral changes, Denies confusion, Denies depression, Denies homicidal ideation and Denies suicidal ideation Endocrine Endocrine: Denies fatigue, Denies flushing and Denies palpitations Hematologic/Lymphatic Hematologic/Lymphatic: Denies easy bruising Allergic/Immunologic Allergic/Immunologic: Denies urticaria, Denies throat swelling and Denies wheezing Patient History Medical History PTSD (post-traumatic stress disorder) Social History Smoking Status: Current every day smoker Smoking Status: Current every day smoker tobacco type: cigarettes and smokeless tobacco alcohol intake frequency: other Substance Use Type: marijuana Exam Narrative Exam Narrative: GEN: AOx3 and in mild distress EYES: Pupils are equal, round, and reactive to light and accommodation. Extraoccular muscles are intact bilaterally. There is no subconjunctival hemorrhage or exudate. CHEST: Lungs are clear to auscultation bilaterally and free of wheezes, rales, or rhonchi. Heart rate is regular rhythm, there are no murmurs, clicks, rubs, or gallops. There is no chest wall tenderness. ABD: Abdomen is soft and nontender. There is no guarding or rebound. Bowel sounds are normal in all 4 quadrants. There is no mass or organomegaly. EXT: Full painless ROM of all extremities with no loss of sensation or strength. SKIN: Warm, pink, and dry. No erythema or rash BACK: metal cut off saw tender but free of any obvious external abnormalities. Patient exam notes decreased range of motion and muscle spasm, but no CVA tenderness, or vertebral point tenderness. There are no symptoms of cauda equina such as saddle anesthesia, and decreased reflexes, decreased sensation or strength. Initial Vital Signs Initial Vital Signs: Vital Signs Temperature 98.3 F 07/26/20 15:48 Pulse Rate 65 07/26/20 15:48 Respiratory Rate 16 07/26/20 15:48 Blood Pressure 154/73 H 07/26/20 15:48 Pulse Oximetry 99 07/26/20 15:48 Course Orders Ordered: ED Orders 07/26/20 16:30 UA Complete [Urinalysis and Microscopic] Stat Discontinued Medications Gabapentin (Gabapentin 300 Mg Capsule) 300 mg PO NOW ONE Stop: 07/26/20 18:40 Last Admin: 07/26/20 18:49 Dose: 300 mg Documented by: FRANCA Prednisone (Prednisone 20 Mg Tablet) 40 mg PO NOW ONE Stop: 07/26/20 18:40 Last Admin: 07/26/20 18:49 Dose: 40 mg Documented by: FRANCA Vital Signs Vital signs: Vital Signs - 8 hr 07/26/20 18:54 Pulse Rate 79 Respiratory Rate 15 Blood Pressure 133/82 Pulse Oximetry 98 MDM - Back Pain/Injury Lab Data Labs: Lab Results 07/26/20 Range/Units 16:30 Urine Color Yellow Urine Appearance Clear Urine pH 7.5 (4.5-8.0) Ur Specific [place] 1.015 (1.000-1.035) Urine Protein Negative (Negative) Urine Glucose (UA) Negative (Negative) g/dL Urine Ketones Negative (NEGATIVE) Urine Occult Blood Negative (Negative) Urine Nitrate Negative (Negative) Urine Bilirubin Negative (NEGATIVE) Urine Urobilinogen 0.2 (0.2) E.U./dL Ur Leukocyte Esterase Negative (NEGATIVE) Urine RBC None seen (0-5/HPF) Urine WBC None seen (0-5/HPF) Urine Bacteria None seen (None) Ur Culture Indicated? Cult not indicated Discharge Plan Departure Patient Disposition: Home Clinical Impression: Chronic back pain Qualifiers: Back pain location: low back pain Back pain laterality: right Sciatica presence: with sciatica Sciatica laterality: sciatica of right side Qualified Code(s): M54.41 - Lumbago with sciatica, right side Instructions: DI for Back Pain With Sciatica Activity Restrictions/Additional Instructions: *You have been diagnosed with [acute on chronic lumbar pain with radiculopathy] *What to do: *Take medications as directed *Follow up with your primary care provider in 2-3 days, call for an appointment. Let them know you were seen in the Emergency Department and that we ask that you be seen in follow up *Return to ER if you should have any new, worsening or concerning symptoms, such as [increasing pain, weakness, fever greater than 101 F, other bothersome symptoms] Prescriptions: New gabapentin 300 mg capsule 300 mg PO BEDTIME Qty: 14 RF: 0 prednisone 10 mg tablet See Rx Instructions .ROUTE .COMPLEX Qty: 30 RF: 0 No Action hydrocodone-acetaminophen [[place]] 5-325 mg tablet 1 tab PO Q6H PRN (Reason: pain) Qty: 10 RF: 0 tramadol 50 mg tablet 50 mg PO Q8H PRN (Reason: pain) Qty: 14 RF: 0 ketorolac 10 mg tablet 10 mg PO Q6H PRN (Reason: pain) Qty: 14 RF: 0 Referrals: Steven Nolan MD [Primary Care Provider] -
[2020-07-26 18:09] LABS: Culture Indicated Urine Cult Not Indicated
[2020-07-26] MEDS: GABAPENTIN 300 MG CAPSULE PO (18:49)
[2020-07-26] MEDS: predniSONE 20 MG TABLET 40 MG PO (18:49)
[2020-07-26 18:54] VITALS: BP 133/82; PULSE 79; RESP 15; O2SAT 98
== END 2020-07-26 18:55 | disposition home or self-care (01) ==
PROVIDERS: Emergency Medicine; Emergency Provider Emergency Medicine; PCP Family Medicine
DX: M54.41 Lumbago with sciatica, right side (principal); W19.XXXD Unspecified fall, subsequent encounter; Y99.0 Civilian activity done for income or pay
CPT/HCPCS: 81001; 99281; 99283

== ENCOUNTER → 2020-07-31 16:41 | Outpatient (CLI) | payer OTHER, SELFPAY ==
--- NOTE | 2020-07-31 | DI.MRI.S_ITS ---
PROCEDURE: MR LUMBAR SPINE WO CON INDICATIONS: LOW BACK PAIN TECHNIQUE: Noncontrast sagittal T1 spin echo and T2 fast echo, sagittal STIR, axial T1 and T2 fast spin echo through the lumbar spine. In cases with scoliosis, additional coronal T2 fast spin echo may be performed. COMPARISON: None. FINDINGS: Image quality: Excellent. Alignment and Curvature: There is Grade I retrolithesis of L2 o nL3, L3 on L4, L4 on L5, L5 on S1, the most prominent at L5 on S1 measuring 6 mm. Bone Marrow: Marrow is of normal overall signal. Minimal reactive endplate changes are noted at L2-3, L3-4, L4-5, L5-S1. No acute vertebral body compression fractures. Spinal Cord: Conus medullaris terminates at the L1 level. Visualized cord demonstrates normal signal and size. Paraspinous Soft Tissues: No paravertebral masses. Discs: Moderate disc dessication is present throughout the lumbar spine, most notable at L5-S1. L1-L2: Minimal disc bulge without spinal stenosis or foraminal narrowing. Mild facet and ligamentum flavum hypertrophy. L2-L3: Minimal disc bulge without spinal stenosis or foraminal narrowing. Mild facet and ligamentum flavum hypertrophy. Prominent anterior osteophyte is present. L3-L4: Mild disc bulge with minimal canal narrowing. Mild left foraminal narrowing with facet and ligamentum flavum hypertrophy. L4-L5: Minimal disc bulge without spinal stenosis. Minimal to mild bilateral foraminal narrowing with facet and ligamentum flavum hypertrophy. L5-S1: Mild disc bulge without spinal stenosis. Severe left foraminal narrowing with flattening of the exiting L5 nerve roots. Moderate to severe narrowing through the right subarticular recess with overall moderate foraminal narrowing. IMPRESSION: 1. Multilevel degenerative changes most severe at L5-S1 demonstrating severe left foraminal narrowing with flattening exiting nerve root secondary to anterolisthesis as well as facet/ligamentum flavum hypertrophy. Dictated by: Carol Ann Rodriguez M.D. on 08/01/2020 at 8:20 Approved by: Carol Ann Rodriguez M.D. on 08/01/2020 at 8:53
== END ==
PROVIDERS: PCP Family Medicine; Referring Provider Physician Assistant Medical; Visit Provider Physician Assistant Medical
DX: M54.5 Low back pain (principal); M47.817 Spondylosis without myelopathy or radiculopathy, lumbosacral region; M48.07 Spinal stenosis, lumbosacral region; M43.17 Spondylolisthesis, lumbosacral region
CPT/HCPCS: 72148

== ENCOUNTER → 2020-12-02 10:33 | Outpatient (CLI) | payer OTHER, SELFPAY ==
--- NOTE | 2020-12-02 | DI.MRI.S_ITS ---
PROCEDURE: MR CERVICAL SPINE WO CON INDICATIONS: Radiculopathy, cervical region TECHNIQUE: Noncontrast sagittal T1 spin echo and T2 fast spin echo, sagittal STIR, foraminal oblique sagittal T2 fast spin echo, and axial gradient echo or T2 fast spin echo through the cervical spine. COMPARISON: [facility], CT, CT CERVICAL SPINE WO CON, 04/22/2019, 9:01. [facility] [place], CR, XR CERVICAL SPINE 2 OR 3 VIEWS, 07/08/2020, 13:15. FINDINGS: Image quality: Excellent. Alignment and Curvature: Loss of normal cervical lordosis is present. There is mild grade 1 retrolisthesis of C3 on C4. Bone Marrow: Marrow demonstrates normal overall signal. Mild reactive signal within the endplates adjacent to the C3-C4, C4-C5, C5-C6, and C6-C7 intervertebral discs. Spinal Cord: Visualized spinal cord has normal size and signal. No cerebellar tonsillar herniation. Paraspinous Soft Tissues: No paravertebral masses. Prevertebral soft tissues are normal in thickness. C2-C3: Mild disc desiccation and diffuse disc bulge. Mild facet and uncovertebral hypertrophy bilaterally. Mild canal stenosis. Mild bilateral foraminal stenosis. C3-C4: Congenital canal stenosis. Mild disc height loss and desiccation. Mild diffuse disc bulge. Mild facet and uncovertebral hypertrophy bilaterally. Moderate canal stenosis. Moderate right and mild left foraminal stenosis. C4-C5: Congenital canal stenosis. Mild disc desiccation and diffuse disc bulge. Mild facet and uncovertebral hypertrophy bilaterally. Mild canal stenosis. Mild bilateral foraminal stenosis. C5-C6: Congenital canal stenosis. Mild disc desiccation and diffuse disc bulge. Mild facet and uncovertebral hypertrophy. Mild canal stenosis. Mild left greater than right foraminal stenosis. C6-C7: Congenital canal stenosis. Mild disc desiccation and diffuse disc bulge with superimposed left paracentral disc protrusion. Mild facet and uncovertebral hypertrophy bilaterally. There is moderate to severe canal stenosis with minimal left cord flattening. There is moderate left and [id number] right foraminal stenosis. C7-T1: Normal appearance. IMPRESSION: 1. Diffuse congenital canal stenosis with superimposed disc and facet disease, as well as uncovertebral hypertrophy. 2. Multilevel canal stenoses, worst at C6-C7 where there is minimal associated cord flattening. 3. Multilevel foraminal stenoses, worst at C3-C4 and C6-C7, where there are moderate foraminal stenosis present. Dictated by: Kindra Sweet M.D. on 12/02/2020 at 11:57 Approved by: Kindra Sweet M.D. on 12/02/2020 at 12:01
== END ==
PROVIDERS: Referring Provider Orthopaedic Surgery; Visit Provider Orthopaedic Surgery
DX: M54.12 Radiculopathy, cervical region (principal); M48.02 Spinal stenosis, cervical region
CPT/HCPCS: 72141

== ENCOUNTER 2021-02-13 19:20 | Emergency (ER) | payer OTHER, SELFPAY ==
--- NOTE | 2021-02-13 00:46 | DI.CT.S_ITS ---
PROCEDURE: CT LUMBAR SPINE W CON INDICATIONS: Concern for cauda equina MRI not available TECHNIQUE: After the administration of intravenous Isovue contrast, 3 mm thick sections acquired through the levels of interest. Sagittal and coronal reformats were then constructed. For radiation dose reduction, the following was used: automated exposure control. COMPARISON: [facility], MR, MR LUMBAR SPINE WO CON, 07/31/2020, 17:14. [facility], RF, CERVICAL SPINE INTERLAMINAR, 01/19/2021, 10:27. FINDINGS: Image quality: Excellent. Bones: No acute fractures are seen. Grade 1 L5-S1 anterolisthesis is seen, with associated pars defects and associated degenerative change. There is moderate disc space narrowing seen, with moderate to severe bilateral neural foraminal narrowing at this level. There is [id number]-[id number] disc space narrowing seen at T12-L1, with mild to moderate central canal narrowing at this level. Milder degenerative changes are seen elsewhere. Soft tissues: Scrutiny is given to the spinal canal. No masses or abnormal enhancement can be seen. No significant soft tissue abnormality can be seen. A normal appendix is incidentally noted. IMPRESSION: No acute abnormality can be seen. No masses or abnormal enhancement can be seen. Degenerative changes are seen, which are worst at T12-L1 and L5-S1. Note: No significant discrepancy from the preliminary report. Dictated by: Noam Thomas M.D. on 02/14/2021 at 8:42 Approved by: Noam Thomas M.D. on 02/14/2021 at 8:45
[2021-02-13 19:25] VITALS: BP 174/85; PULSE 96; RESP 19; TEMP 36.9; O2SAT 100; BMI 22.8
--- NOTE | 2021-02-13 23:52 | ED_ITS ---
HPI - Back Pain/Injury General Chief Complaint: Back Pain/Injury Stated Complaint: LOWER BACK UNABLE TO CONTROL BOWELS FALL HIT HEAD Time Seen by Provider: 02/13/21 23:36 Source: patient Limitations: no limitations History of Present Illness HPI Narrative: Patient is a 45-year-old male with chronic ongoing back problems. He has been seen evaluated by orthopedics Dr. Gentile he is scheduled to actually have surgery he sometime in the near future. For about 1 week he has had difficulty with bowel movements and postvoid dribbling. He was seen and evaluated by Dr. Gentile this week in the office and told if the symptoms had gotten worsened today return to the ED. He is having weakness in both of his legs he is having increasing pain on the left side. The urination dribbling and bowel movements have gotten worse. He says he has to bear down quite frequently and hard to have a complete bowel movement. No fever or chills. MRI from July 2020 shows multilevel disc disease with severe foraminal narrowing on the left L5-S1 measuring 6 mm Related Data Home Medications Medication Instructions Recorded Confirmed hydroxyzine HCl 50 mg tablet 50 mg PO Q4-6H tab 10/22/20 11/13/20 Previous Rx's Medication Instructions Recorded ketorolac 10 mg tablet 10 mg PO Q6H PRN #14 tab 01/19/20 gabapentin 300 mg capsule 300 mg PO BEDTIME #14 cap 07/26/20 prednisone 10 mg tablet See Rx Instructions .ROUTE 07/26/20 .COMPLEX #30 tab methocarbamol 750 mg tablet See Rx Instructions PO QID PRN #70 10/27/20 tab Allergies Allergy/AdvReac Type Severity Reaction Status Date / Time amitriptyline Allergy Intermediate Verified 11/13/20 10:17 trazodone Allergy Mild Verified 11/13/20 10:17 acetaminophen AdvReac Intermediate Verified 11/13/20 10:17 Review of Systems Review of Systems Narrative: GENERAL: Denies chills, fatigue, malaise, fever, sweats, travel HEENT: Denies sinus pain, ear pain, sore throat, difficulty swallowing, neck pain RESPIRATORY: Denies dyspnea, cough, wheezing, hemoptysis, sputum. CARDIOVASCULAR: Denies chest pain, palpitations, orthopnea, edema GASTROINTESTINAL: Denies nausea, vomiting, abdominal pain, diarrhea, constipation, melena. : + incontinence Denies dysuria, frequency, hematuria, urinary retention, flank pain. MUSCULOSKELETAL: See HPI SKIN: No rash, no erythema, no pruritus NEUROLOGIC: Denies weakness, dizziness, headache, numbness, change in speech, confusion PSYCHIATRIC: No concerning psychosocial issues. 12 point review of systems is negative except for those stated above and HPI Patient History Medical History (Updated 02/14/21 @ 03:31 by Brandi Patel DO) ADHD Chicken pox Chronic back pain Foot pain Fractures PTSD (post-traumatic stress disorder) Shoulder pain Social History Smoking Status: Current every day smoker Smoking Status: Current every day smoker tobacco type: cigarettes and smokeless tobacco alcohol intake frequency: other Substance Use Type: marijuana Exam Initial Vital Signs Initial Vital Signs: Vital Signs Temperature 98.4 F 02/13/21 19:25 Pulse Rate 96 H 02/13/21 19:25 Respiratory Rate 19 02/13/21 19:25 Blood Pressure 174/85 H 02/13/21 19:25 Pulse Oximetry 100 02/13/21 19:25 GENERAL: Well-appearing, well-nourished and in no acute distress. HEENT: Head atraumatic,EOMI, pupils reactive, face symmetric, moist mucous membranes CARDIOVASCULAR: Regular rate and rhythm without murmurs, rubs or gallops. RESPIRATORY: Breath sounds equal bilaterally, no wheezes rales or rhonchi. ABDOMEN: Soft, nontender. Normoactive bowel sounds all 4 quadrants. No guarding or rebound. RECTAL: Good rectal tone but decreased sensation EXTREMITIES: Normal range of motion, no clubbing or edema. Neurovascularly intact NEUROLOGICAL: Alert and oriented x4.Normal gait and speech. SKIN: Warm, dry, no laceration, no petechiae, no rashes or lesions. Course Orders Ordered: ED Orders 02/13/21 23:55 Complete Blood Count AUTO DIFF Stat Comprehensive Metabolic Panel Stat Discontinued Medications Hydromorphone HCl (Hydromorphone 0.5 Mg Inj) 0.5 mg IV NOW ONE Stop: 02/13/21 23:53 Last Admin: 02/14/21 00:08 Dose: 0.5 mg Documented by: KGALLAG Hydromorphone HCl (Hydromorphone 1 Mg Inj) 1 mg IV NOW ONE Stop: 02/14/21 03:36 Last Admin: 02/14/21 03:40 Dose: 1 mg Documented by: KIMBERLY Vital Signs Vital signs: Vital Signs - 8 hr 02/14/21 03:45 Pulse Rate 69 Respiratory Rate 16 Blood Pressure 152/84 H Pulse Oximetry 99 MDM - Back Pain/Injury Lab Data Result diagrams: 02/13/21 23:55 02/13/21 23:55 Labs: Lab Results 02/13/21 02/13/21 Range/Units 23:55 23:55 WBC 6.9 (4.5-11.0) X10^3/uL RBC 4.26 L (4.5-5.9) X10^6/uL Hgb 12.6 L (13.5-17.5) g/dL Hct 37.9 L (41-53) % MCV 88.9 (80-100) fL MCH 29.5 (26-34) PG MCHC 33.2 (30-36) % RDW 14.4 (11.6-14.8) % Plt Count 211 (150-400) X10^3/uL Neut % (Auto) 62.6 (50-75) % Lymph % (Auto) 27.7 (25-40) % [place] % (Auto) 7.0 (3-14) % Eos % (Auto) 2.1 (2-4) % Baso % (Auto) 0.6 (0-2) % Neut # (Auto) 4300 (8898-9262) /uL Lymph # (Auto) 1900 (3746-8584) /uL [place] # (Auto) 500 (0-900) /uL Eos # (Auto) 100 (0-450) /uL Baso # (Auto) 0 (0-100) /uL Sodium 138 (137-145) mmol/L Potassium 4.6 (3.4-5.1) mmol/L Chloride 103 (98-107) mmol/L Carbon Dioxide 30 (22-32) mmol/L BUN 14 (9-20) mg/dL Creatinine 0.82 (0.66-1.25) mg/dL Estimated GFR > 60.0 (>60) mL/min BUN/Creatinine Ratio 17.1 (6-22) Glucose 83 (70-100) mg/dL Calcium 9.6 (8.4-10.2) mg/dL Total Bilirubin 0.4 (0.2-1.3) mg/dL AST 35 (17-59) IU/L ALT 32 (<50) IU/L Alkaline Phosphatase 64 (38-126) U/L Total Protein 7.6 (6.3-8.2) g/dL Albumin 4.5 (3.5-5.0) g/dL Globulin 3.1 (1.7-4.1) g/dL Albumin/Globulin Ratio 1.5 (1.0-2.8) Urine Dip Bedside Urine Glucose Negative Bedside Urine Bilirubin - Negative Bedside Urine Ketone - Negative Urine Specific [place] 1.010 Bedside Urine Occult Blood - Negative Bedside Urine pH 6 Bedside Urine Protein - Negative Bedside Urine Urobilinogen - Negative Bedside Urine Nitrite - Negative Bedside Urine Leukocytes - Negative Esterase MDM Narrative Medical decision making narrative: The patient's symptoms are slightly concerning for possible cauda equina, however he has had symptoms ongoing for least 1 week more he thinks they are getting worse. MRI if not available however CT with contrast did not reveal any spinal canal stenosis. Case was di scussed with Orthopedics, specialist in spine did not think patient's symptoms and test results were consistent with cauda equina. Recommended outpatient follow-up. She patient's pain is certainly not out of control he states at home it is mostly controlled with marijuana however due to being on parole he is being forced to quit that. Patient given 2 doses of Dilaudid in the emergency department is he is moving around quite easily. Patient has previously been on gabapentin methocarbamol he states that nothing really seems to help. post void residual 52mL Dr. Marcelino 0300, updated patient's signs symptoms test results concern for possible cauda equina, at this time recommends outpatient follow-up no need for steroids I have updated patient when test results and orthopedic recommendations he follow-up next week. Discharge Plan Departure Patient Disposition: Home Clinical Impression: Acute exacerbation of chronic low back pain Instructions: DI for Back Pain With Sciatica Activity Restrictions/Additional Instructions: *You have been diagnosed with acute on chronic back pain *What to do: At this time I have spoke with Dr. Gentile your back surgeon. He will need to call on Tuesday and follow up next week. If your continuing to have increasing leg weakness, or worsening changes with urine and stool you may need an MRI. *Continue to take medications as directed *Follow up with your primary care provider in 2-3 days *Return to ER if you should have increasing back pain, increasing leg weakness, worsening changes in urine or stool or any new, worsening or concerning symptoms Prescriptions: No Action ketorolac 10 mg tablet 10 mg PO Q6H PRN (Reason: pain) Qty: 14 RF: 0 gabapentin 300 mg capsule 300 mg PO BEDTIME Qty: 14 RF: 0 prednisone 10 mg tablet See Rx Instructions .ROUTE .COMPLEX Qty: 30 RF: 0 hydroxyzine HCl 50 mg tablet 50 mg PO Q4-6H RF: 0 methocarbamol 750 mg tablet See Rx Instructions PO QID PRN (Reason: muscle spasm) Qty: 70 RF: 0 Referrals: Gabriel Marcelino MD [Physician] - Jazmin Gill PA-C [Primary Care Provider] -
[2021-02-14] MEDS: HYDROMORPHONE 0.5 MG INJ IV (00:08)
[2021-02-14 00:12] LABS: Add Manual Diff / Slide Review NO; Alanine Aminotransferase 32 IU/L (<50); Albumin 4.5 g/dL (3.5-5.0); Albumin Globulin Ratio 1.5 (1.0-2.8); Alkaline Phosphatase 64 U/L (38-126); Aspartate Aminotransferase 35 IU/L (17-59); BUN Creatinine Ratio 17.1 (6-22); Basophils Absolute Auto 0 /uL (0-100); Basophils Percent Auto 0.6 % (0-2); Bilirubin Total 0.4 mg/dL (0.2-1.3); Blood Urea Nitrogen 14 mg/dL (9-20); Calcium 9.6 mg/dL (8.4-10.2); Carbon Dioxide 30 mmol/L (22-32); Chloride 103 mmol/L (98-107); Eosinophils Absolute Auto 100 /uL (0-450); Eosinophils Percent Auto 2.1 % (2-4); Estimated Glomerular Filt Rate > 60.0 mL/min (>60); Globulin 3.1 g/dL (1.7-4.1); Glucose 83 mg/dL (70-100); HEMOLYSIS < 15 (0-50); Hematocrit 37.9 % (41-53); Hemoglobin 12.6 g/dL (13.5-17.5); Lymphocytes Absolute Auto 1900 /uL (1100-4500); Lymphocytes Percent Auto 27.7 % (25-40); Mean Corpuscular HGB Conc 33.2 % (30-36); Mean Corpuscular Hemoglobin 29.5 PG (26-34); Mean Corpuscular Volume 88.9 fL (80-100); Monocytes Absolute Auto 500 /uL (0-900); Neutrophils Absolute Auto 4300 /uL (1500-7000); Neutrophils Percent Auto 62.6 % (50-75); Platelet Count 211 X10^3/uL (150-400); Potassium 4.6 mmol/L (3.4-5.1); Red Blood Cell Count 4.26 X10^6/uL (4.5-5.9); Red Cell Distribution Width 14.4 % (11.6-14.8); Sodium 138 mmol/L (137-145); Total Protein 7.6 g/dL (6.3-8.2); White Blood Cell Count 6.9 X10^3/uL (4.5-11.0)
[2021-02-14] MEDS: HYDROMORPHONE 1 MG INJ IV (03:40)
[2021-02-14 03:45] VITALS: BP 152/84; PULSE 69; RESP 16; O2SAT 99
== END 2021-02-14 03:46 | disposition home or self-care (01) ==
PROVIDERS: Emergency Provider Emergency Medicine; PCP Physician Assistant
DX: M54.5 Low back pain (principal)
CPT/HCPCS: 36415; 51798; 72132; 80053; 81003; 85025; 96374; 96376; 99284; J1170; Q9967

== ENCOUNTER → 2021-02-20 10:12 | Outpatient (CLI) | payer MEDICARE, SELFPAY ==
[2021-02-20 20:33] LABS: Alanine Aminotransferase 18 IU/L (<50); Albumin 4.2 g/dL (3.5-5.0); Albumin Globulin Ratio 1.4 (1.0-2.8); Alkaline Phosphatase 61 U/L (38-126); Aspartate Aminotransferase 28 IU/L (17-59); BUN Creatinine Ratio 21.1 (6-22); Bilirubin Total 0.3 mg/dL (0.2-1.3); Blood Urea Nitrogen 19 mg/dL (9-20); Calcium 9.9 mg/dL (8.4-10.2); Carbon Dioxide 29 mmol/L (22-32); Chloride 105 mmol/L (98-107); Estimated Glomerular Filt Rate > 60.0 mL/min (>60); Glucose 84 mg/dL (70-100); HEMOLYSIS < 15 (0-50); Potassium 4.5 mmol/L (3.4-5.1); Sodium 139 mmol/L (137-145); Total Protein 7.2 g/dL (6.3-8.2)
== END ==
PROVIDERS: PCP Physician Assistant; Visit Provider Family Medicine
DX: M54.5 Low back pain (principal); G89.29 Other chronic pain; Z78.9 Other specified health status; M54.9 Dorsalgia, unspecified; F90.9 Attention-deficit hyperactivity disorder, unspecified type; F10.21 Alcohol dependence, in remission; F43.10 Post-traumatic stress disorder, unspecified
CPT/HCPCS: 80053

== ENCOUNTER → 2021-04-20 11:30 | Outpatient (CLI) | payer MEDICARE, MEDICAID, SELFPAY ==
[2021-04-21 19:26] LABS: Appearance Urine UA CLEAR; Bilirubin Urine UA NEGATIVE (NEGATIVE); Color Urine UA YELLOW; Glucose Urine UA NEGATIVE (Negative); Ketones Urine UA NEGATIVE (NEGATIVE); Leukocyte Esterase Urine UA NEGATIVE (NEGATIVE); Nitrite Urine UA NEGATIVE (Negative); Occult Blood Urine UA NEGATIVE (Negative); Protein Urine UA NEGATIVE (Negative); Urobilinogen Urine UA 0.2 E.U./dL (0.2)
[2021-04-21 19:34] LABS: BUN Creatinine Ratio 14.8 (6-22); Blood Urea Nitrogen 13 mg/dL (9-20); Calcium 9.9 mg/dL (8.4-10.2); Carbon Dioxide 27 mmol/L (22-32); Chloride 103 mmol/L (98-107); Estimated Glomerular Filt Rate > 60.0 mL/min (>60); Glucose 89 mg/dL (70-100); HEMOLYSIS 26 (0-50); Potassium 4.4 mmol/L (3.4-5.1); Sodium 140 mmol/L (137-145)
[2021-04-21 19:41] LABS: Bacteria Urine None Seen; Culture Indicated Urine Cult Not Indicated; RBC Urine 0-1/HPF (0-5/HPF); WBC Urine None Seen (0-5/HPF)
[2021-04-21 19:52] LABS: Add Manual Diff / Slide Review NO; Basophils Absolute Auto 100 /uL (0-100); Basophils Percent Auto 0.8 % (0-2); Eosinophils Absolute Auto 200 /uL (0-450); Eosinophils Percent Auto 2.2 % (2-4); Hematocrit 37.6 % (41-53); Hemoglobin 12.7 g/dL (13.5-17.5); Lymphocytes Absolute Auto 1300 /uL (1100-4500); Lymphocytes Percent Auto 16.9 % (25-40); Mean Corpuscular HGB Conc 33.9 % (30-36); Mean Corpuscular Hemoglobin 29.7 PG (26-34); Mean Corpuscular Volume 87.5 fL (80-100); Monocytes Absolute Auto 400 /uL (0-900); Monocytes Percent Auto 4.5 % (3-14); Neutrophils Absolute Auto 5900 /uL (1500-7000); Neutrophils Percent Auto 75.6 % (50-75); Platelet Count 214 X10^3/uL (150-400); Red Blood Cell Count 4.29 X10^6/uL (4.5-5.9); Red Cell Distribution Width 13.5 % (11.6-14.8); White Blood Cell Count 7.8 X10^3/uL (4.5-11.0)
== END ==
PROVIDERS: Referring Provider Orthopaedic Surgery Orthopaedic Surgery of the Spine; Visit Provider Orthopaedic Surgery Orthopaedic Surgery of the Spine
DX: F43.10 Post-traumatic stress disorder, unspecified (principal); Z01.812 Encounter for preprocedural laboratory examination; N39.0 Urinary tract infection, site not specified
CPT/HCPCS: 80048; 81001; 85025

== ENCOUNTER → 2021-05-01 10:54 | Outpatient (CLI) | payer OTHER, MEDICARE, MEDICAID, SELFPAY ==
[2021-05-01 13:25] LABS: COVID19 -Nasal RAPID Negative (Negative)
== END ==
PROVIDERS: Visit Provider Physician Assistant
DX: Z20.822 Contact with and (suspected) exposure to COVID-19 (principal)
CPT/HCPCS: 87635; C9803

== ENCOUNTER 2021-05-04 08:27 | Inpatient (IN) | payer OTHER, SELFPAY ==
[2021-04-27 09:55] VITALS: BMI 23.6
[2021-05-04] VITALS (16 sets, daily range): BP systolic 115–158; BP diastolic 63–93; PULSE 62–90; RESP 10–18; TEMP 36.1–36.9; O2SAT 96–100; BMI 23.6
--- NOTE | 2021-05-04 | DI.RAD.S_ITS ---
PROCEDURE: XR LUMBAR SPINE 2-3V INDICATIONS: L5-S1 TLIF TECHNIQUE: 2 intraoperative views of the lumbar spine were acquired. COMPARISON: [facility], , XR LUMBAR SPINE MIN 4V, 11/16/2019, 10:56. FINDINGS: Intraoperative fluoroscopic images of lower lumbar spine shows transpedicular fusion at L5-S1 level with surgical hardware and intervertebral spacer placement. IMPRESSION: Fluoro guidance was provided intraoperatively for posterior fusion at L5-S1 level. Dictated by: Bernardo Gentile M.D. on 05/04/2021 at 14:53 Approved by: Bernardo Gentile M.D. on 05/04/2021 at 14:53
[2021-05-04] MEDS: LACTATED RINGERS 1,000 ML 42 ML IV ×2 (09:06→10:54)
--- NOTE | 2021-05-04 09:13 | PM.PREOP ---
Pre-operative Note COVID-19 COVID-19 status: Negative Result date/Date tested (Pos, Neg/Pending): 05/02/21 Interval Note History & Physical reviewed/Exam performed by Physician: Yes Changes to H&P: No
[2021-05-04] MEDS: CEFAZOLIN 1 GM VIAL 2 GM IV ×3 (10:20→22:04)
--- NOTE | 2021-05-04 10:39 | SUR.OPER ---
Prone on spine table, head in foam head support, padded chest and pelvic supports, gel pad at knees, lower legs supported by pillows; nipples, genitalia and toes free of pressure, arms secured on foam padded arm boards at <90 degrees abduction. Tape over blanket at thigh secured to table.
[2021-05-04] MEDS: BUPIVACAINE LIPOSOME 266 MG/20 ML VIAL INJ (10:47)
[2021-05-04] MEDS: BUPIVACAINE 0.25% (PF) 30 ML, EPINEPHrine 0.3 MG INJ (10:47)
--- NOTE | 2021-05-04 12:43 | P.OP_ITS ---
Operative Date/Time/Diagnoses Date of procedure: 05/04/21 Time of procedure: 10:00 Pre-op diagnosis: 1. L5-S1 spondylolisthesis 2. L5-S1 spinal stenosis Post-op diagnosis: same Procedure & Clinicians Procedure: 1. L5-S1 Postero-lateral and posterior interbody fusion 2. L5-S1 interbody cage placement. 3. L5-S1 decompressive laminectomy with bilateral facetecomies 4. L5-S1 Posterior non-segmental instrumentation 5. [place] of bone marrow from iliac crest 6. Utilization of microsurgical technique and operating microscope Same procedure as scheduled: Yes Indications: Patient has been having chronic back pain and worsening lumbar radiculopathy. Patient failed multiple conservative management with worsening pain weakness and numbness in her lower extremity. Patient has been having difficulty performing activity of daily living. After discussing risks benefits of treatment options, patient elected proceed with surgery. Surgeon: Gabriel Marcelino Retail Pharmacy Manager: Lisa Solis Click Yes if Unassisted: No Anesthesia Type: General Operative Notes Closure Type: primary Specimen(s): none sent Prosthetic devices, grafts, tissues, transplants, or devices: Globus revolve screws, Rise cage Estimated Blood Loss (mL): 50 Blood products transfused: none Procedure in detail: Patient was seen in the preoperative area. Risks and benefits of the surgery was discussed with the patient. Informed consent was obtained from the patient and placed in the chart. Surgical site was marked. Patient was taken to the operative room. General anesthesia was administered. Prophylactic antibiotic was given to the patient less than 30 min before the inc ision was made. Patient was placed into a prone position on the Addy table. Patient's back was then prepped and draped in the sterile fashion. Time-out was performed at this time. Using AP and lateral C-arm imaging the interval between L5-S1 was identified and marked on patient's back. A 2 inch incision 2 in from midline was made on the left side first. The fascia was incised in line with skin incision. Globus MARS retractors was placed inside the incision and docked onto the L5 lamina. Using microsurgical technique and operating microscope, a L5 laminectomy and L5-S1 facetectomy was performed using a Kerrison rongeur. Patient was found have severe neural foraminal stenosis and required a total facetectomy for decompression which rendered L5-S1 grossly unstable and required a fusion procedure at the same time. Patient's L5-S1 level also was found to be unstable prior to the laminectomy and facetectomy due to patient's spondylolisthesis. The disc space at L5-S1 was identified. And a total diskectomy was performed at L5-S1 level. The endplates were decorticated using a rasp and shaver. The total diskectomy and decortication was performed at L5-S1 level in order to to acc omplish a L5-S1 fusion. The local bone from the laminectomy and facetectomy was saved for local bone grafting. After the total diskectomy and decortication was completed, Trifecta bone graft material was combined with local bone that was harvested earlier. At this time, a separate skin is incision was made over the iliac crest. A Jamshidi needle was inserted into the iliac crest through a sepa rate skin incision. 5 cc of bone marrow aspiration was obtained through the separate skin incision using a Jamshidi needle from the iliac crest. The bone marrow aspiration was combined with local bone and the Trifecta bone grafting material. The bone grafting material was placed into the L5-S1 interbody space along with a expandable cage. The cage was expanded to its maximum height using the torque limiting screwdriver. At this time a mirror image incision was made on the right side. The fascia was incised in line with the skin incision. Globus MARS retractor was inserted and docked onto the L5-S1 posterolateral gutter. Using the power drill, posterior- lateral decortication was performed at L5-S1 level until bleeding cortical bone was identified. The remaining bone grafting material was placed into the L5-S1 posterior lateral gutter he order to accomplish posterolateral fusion at the L5- S1 level. Using the double C-arm technique, pedicle screws were placed into the L5-S1 pedicles bilaterally. This was done by placing the Jamshidi needle into the pedicles, then placing the guidewires over the Jamshidi needle, and finally placing the cannulated screws over the guidewires bilaterally. After the pedicle screws were placed, 2 titanium rods was locked into the heads of the pedicle screws using locking caps and torque limiting screwdriver. After all the hardware was placed, and confirmed with AP and lateral C-arm imaging, the wound was then irrigated with sterile normal saline and packed with Ray-Bijal gauze for 3 min to accomplish hemostasis. After the gauze was removed the deep fascia was closed with #1 Vicryl suture. The subcutaneous layer was closed with 2-0 Vicryl. The skin was closed with skin araseli. Patient tolerated the procedure well. There were no complications. Complications: none Post-operative Condition: stable Disposition: PACU Plan for aftercare: admit to inpatient hospital
[2021-05-04] MEDS: HYDROMORPHONE 2 MG INJ IV ×3 (13:10→13:35)
[2021-05-04] MEDS: OXYCODONE IR 5 MG TABLET PO (13:46)
[2021-05-04] MEDS: HYDROMORPHONE 0.5 MG INJ IV ×4 (14:50→23:40)
[2021-05-04] MEDS: OXYCODONE IR 5 MG TABLET 10 MG PO ×3 (14:51→22:04)
[2021-05-04] MEDS: hydrOXYzine pamoate 25 MG CAPSULE PO (14:54)
[2021-05-04] MEDS: SODIUM CHLORIDE 0.9% 1,000 ML 100 ML IV (15:23)
[2021-05-04] MEDS: fentaNYL 12 MCG/PATCH TOP (16:10)
[2021-05-04] MEDS: diazePAM 5 MG TABLET PO (18:26)
[2021-05-04] MEDS: hydrOXYzine pamoate 25 MG CAPSULE 50 MG PO (20:54)
[2021-05-04] MEDS: SENNOSIDES 8.6 MG TABLET 17.2 MG PO (20:54)
[2021-05-04] MEDS: PRAZOSIN 1 MG CAPSULE 4 MG PO (20:54)
[2021-05-04] MEDS: DOCUSATE 100 MG CAPSULE PO (20:54)
[2021-05-04] MEDS: METHYLPHENIDATE 5 MG TABLET 30 MG PO (20:54)
[2021-05-04] MEDS: MAGNESIUM HYDROXIDE 30 ML UDC PO (23:45)
[2021-05-05] VITALS (7 sets, daily range): BP systolic 125–151; BP diastolic 62–90; PULSE 88–111; RESP 16–19; TEMP 36.6–38.3; O2SAT 94–98
[2021-05-05] MEDS: diazePAM 5 MG TABLET PO ×3 (01:27→20:41)
[2021-05-05] MEDS: SODIUM CHLORIDE 0.9% 1,000 ML 100 ML IV (01:28)
[2021-05-05] MEDS: OXYCODONE IR 5 MG TABLET 10 MG PO ×2 (03:54→09:22)
[2021-05-05] MEDS: HYDROMORPHONE 0.5 MG INJ IV (07:58)
[2021-05-05] MEDS: METHYLPHENIDATE 5 MG TABLET 30 MG PO ×2 (07:59→20:35)
[2021-05-05] MEDS: DOCUSATE 100 MG CAPSULE PO ×2 (07:59→20:41)
[2021-05-05] MEDS: hydrOXYzine pamoate 25 MG CAPSULE 50 MG PO ×4 (07:59→19:03)
--- NOTE | 2021-05-05 09:41 | PM.PNPO.1 ---
Subjective Subjective Date Patient Seen: 05/05/21 Time Patient Seen: 09:41 Interval history: The patient is complaining of moderate to severe low back pain. He notes he has been on a 12 micro Gram fentanyl patch for the last 18 days only. He is concerned because he lives in a trailer on [address] [facility] with his and does not feel safe to go home yet. He denies any new numbness or tingling, he has baseline tingling in his right foot. No nausea or vomiting. No fevers, chills, night sweats. Exam Vital Signs (past 8 hours): - 05/05/21 04:00 05/05/21 08:00 Temperature 99.1 F 97.8 F Pulse Rate 88 89 Respiratory Rate 19 17 Blood Pressure 142/73 H 145/80 H Pulse Oximetry 97 96 Oxygen Delivery Method Room Air Oxygen Flow Rate 0 Narrative Exam Narrative: 45-year-old male, in bed, mild to moderate distress, likely due to pain. Dressing demonstrates scant serosanguineous drainage on the left side. Bilateral lower extremity motor functions are grossly intact. He has decreased sensation in his right dorsal web space otherwise bilateral lower extremity sensation is grossly intact to light touch. Bilateral calves are soft, nontender to palpation. [facility] Medical History ADHD Back injury (11/11/19) Chicken pox Chronic back pain Easy bruisability Foot pain Fractures Mandible fracture PTSD (post-traumatic stress disorder) Shoulder pain Spinal stenosis Spondylolisthesis Surgical History Cataract extraction status, left eye Hx of shoulder surgery Social History household members: spouse Smoking Status: Current every day smoker alcohol intake: former Assessment & Plan Post-op Postoperative Procedures: Procedures Operation Date: 05/04/21 09:15 Actual Procedure Side Surgeon p L5-S1 TLIF Gabriel Marcelino MD Postoperative day: 1 Postoperative status: marginal pain control Postoperative status narrative: Status post L5-S1 TLIF Postoperative plan narrative: -mobilize with PT. Limit bending, lifting, twisting. Weightbearing as tolerated with front wheel walker -we will change up his pain regimen, he is on 12 mcg of fentanyl from his outside physician. We will discontinue the oxy 10, and start Dilaudid 2-4 mg as needed for moderate to severe pain. -he lives on [facility] [address] in a trailer and is concerned about the mud and safely getting in and out of his trailer. -disposition home likely in 1-2 days for marginal pain control and clearance by Physical therapy
--- NOTE | 2021-05-05 10:30 | OT.IP.EVAL ---
Current Diagnoses Spondylolisthesis, lumbosacral region (05/04/21) Spinal stenosis, lumbar region without neurogenic claudication (05/04/21) Surgery Performed Operation Date: 05/04/21 09:15 Actual Procedures p L5-S1 TLIF - Gabriel Marcelino MD Past Medical History (Last Reviewed 05/05/21 @ 09:43 by Lisa Solis PA-C) ADHD Back injury (11/11/19) Cataract extraction status, left eye Chicken pox Chronic back pain Easy bruisability Foot pain Fractures Hx of shoulder surgery Mandible fracture PTSD (post-traumatic stress disorder) Shoulder pain Spinal stenosis Spondylolisthesis Surgical History (Last Reviewed 05/05/21 @ 09:43 by Lisa Solis PA-C) Cataract extraction status, left eye Hx of shoulder surgery Occupational Therapy Inpatient Evaluation/Re-Eval M1 PT/OT-IP Prior Functional Status Start: 05/05/21 12:13 Freq: NEEDED Status: Active Protocol: Document 05/05/21 12:13 [facility] (Rec: 05/05/21 12:31 [facility] [id number]) Medical Review Prior Functional Status Communication Independent Mobility and Gait Pt states recently has been using a cane to get around. Activities of Daily Living and IADL's Pt states able to do ADL's and IADl needs however with much pain. Prior Functional Level (Other details) Pt spouse works during the day and therefore pt and his are looking to see if anyone can come and stay with him to assist as needed. Social History Household Members spouse Living Arrangements RV Number of Floors (Floors) One Floor Number of Stairs To Enter/Railing? Pt has 6 steps with left rail to enter. Home Environment Standard Height Toilet,Tub/ Shower Home Equipment Four Wheel Walker,Straight Cane M2 OT-IP Current Condition Start: 05/05/21 12:13 Freq: Status: Active Protocol: Document 05/05/21 12:13 [facility] (Rec: 05/05/21 12:31 [facility] [id number]) Occupational Therapy Current Condition Current Condition Evaluation Date 05/05/21 Treatment Diagnosis S/p L5-S1 Diagnosis Onset Date 05/04/21 Post Operative Precautions Lumbar Precautions Log Roll,No Twisting,Limit Bending,Lifting Restriction of 10 lbs,Gait Belt above Incisional Area M3 OT- IP Subjective and Pain Start: 05/05/21 12:13 Freq: Status: Active Protocol: Document 05/05/21 12:13 [facility] (Rec: 05/05/21 12:31 [facility] [id number]) OT- Subjective Occupational Therapy Visit Type Type Initial Evaluation Visit Start Time 09:40 Visit Stop Time 10:30 Total Visit Minutes 50 Occupational Therapy Visit Comments Patient Comments Pt agreed to try to get up for OT eval. Pt's in the room. Patient/Caregiver Goals To go home. OT Pain Assessment Pain When Pain Assessed At Rest Pain Present Pain Present Pain Reported Location back Intensity 6 Scale Used Numeric (0 - 10) M4 OT- IP ADL's Start: 05/05/21 12:13 Freq: Status: Active Protocol: Document 05/05/21 12:13 [facility] (Rec: 05/05/21 12:31 [facility] [id number]) OT [id number] General Evaluation Self-Feeding Ability Independent OT ADL-Grooming Comments OT Grooming Comments Pt able to wash his face after set-up of wash cloth. OT ADL-Oral Care Comments Oral Care Comments Pt not wanting to do at this time. Educated best when standing in front of the sink to best spit into a cup for tooth brushing needs or can hinge at his hips to lean, while keeping his back straight to best follow his back precautions. OT ADL-Dressing General Eval Lower Body Dressing Ability Minimal Assistance Comments OT Dressing Comments Able to show and issue pt LB dressing equipment so that he is able to teresa/doff his sock and PJ bottoms. Pt needing KRUNAL for balance while pulling up his pants over his hips while standing. OT ADL-Toileting Comments OT Toileting Comments Pt not having to go at this time. ABle to educated pt of using wet wipes for hygiene needs. Pt states prior wipes from the front by bending forwards and educated to stand and reach from behind. Otherwise showed pt an example of a toilet paper aid if needing to order one for himself. OT ADL-Bathing Comments OT Bathing Comments Suggested best to have a shower chair when showering for safety. In addition use a a long thin towel to assist to reach for his hygiene needs. In addition his is able to assist at home. M5 OT- IP IADL's Start: 05/05/21 12:13 Freq: Status: Active Protocol: Document 05/05/21 12:13 [facility] (Rec: 05/05/21 12:31 [facility] [id number]) OT-Instrumental Activities of Daily Living Home Safety Awareness Home Safety Comments AT this time pt will need assist for IADl needs due to his decreased balance and having to use BUE heavily on the FWW for mobility needs at this time. Pt would benefit from 17/01 available assist at home initially. M6 OT- IP Functional Cognition Start: 05/05/21 12:13 Freq: Status: Active Protocol: Document 05/05/21 12:13 [facility] (Rec: 05/05/21 12:31 [facility] [id number]) Cognitive Factors Limiting Selfcare Function Cognitive Ability Level of Alertness Alert Patient Orientation Name,Place,Situation Attention Span Ability Capable of Focused Attention, Capable of Sustained Attention Ability to Follow Commands Able to Follow One Step Commands Memory Description No Deficits Noted Cognitive Comments Cognitive Assessment Comments Pt a bit anxious and in pain and needing cues to breath and try to relax. Pt able to state all his back precautions and would benefit from continued practice to incorporate his back precautions for all needs. OT- Vision and Hearing OT- Hearing Assessment OT- Hearing Assessment WFL OT- Vision Assessment Visual Acuity Glasses All The Time M7 OT- IP Mobility and Balance Start: 05/05/21 12:13 Freq: Status: Active Protocol: Document 05/05/21 12:13 [facility] (Rec: 05/05/21 12:31 [facility] [id number]) OT- Bed Mobility Assessment Rolling Type of Rolling Roll to Left Level of Assistance Contact Guard Assistance Supine to Sit Supine to Sit Assist Contact Guard Assistance Scooting Scooting to Edge of Bed Standby Assistance OT-Transfer Assessment Sit to and From Stand Sit to and from Stand Contact Guard Assistance Transfers Transfer Ability Contact Guard Assistance Technique Transfer Destination Bed,Chair Transfer Technique Stand Step Pivot Devices Transfer Assistive Devices Gait Belt,Front Wheeled Walker Comments Mobility Comments CGA from supine to sit , mainly assist for reassurance. CGA to stand and educated to push up on the bed with at least one hand when coming to stand to FWW. Pt having heavy use of BUE on the FWW when walking around the bed to the recliner. OT- Balance Assessment Sitting Balance and Reactions Static Sitting Balance Ability Good Dynamic Sitting Balance Ability Good Standing Balance and Reactions Static Standing Balance Ability Fair M8 OT- IP Objective Assessments Start: 05/05/21 12:13 Freq: Status: Active Protocol: Document 05/05/21 12:13 [facility] (Rec: 05/05/21 12:31 [facility] [id number]) OT-Muscle Tone Assessment Muscle Tone WNL Yes M9 OT- IP Assessment and Plan Start: 05/05/21 12:13 Freq: Status: Active Protocol: Document 05/05/21 12:13 [facility] (Rec: 05/05/21 12:31 [facility] [id number]) OT Summary Assessment and Plan Potential Rehabilitation Potential Good Analytic Complexity at Evaluation Low Summary OT Impairments Pain,Balance,Functional Mobility,Grooming,Dressing, Toileting,Bathing,Toilet Transfers,Shower Transfers Progress Towards Goals Progressing Toward Goals,Slow Progress due to Pain Assessment Summary Pt low complexity and main barriers are steps and pain at this time. Pt needing one person assist for needs at this time and that his works during the day. Pt and his are looking to someone to come and be able to stay with him as needed. Pt pending progress and caregiver training to go home with assist. Pt would benefit from initial 24/7 assist. Goals Grooming Goal Independent Dressing Goal Independent Toileting Goal Independent Bathing Goal Independent Toilet Transfer Goal Independent Shower Transfer Goal Independent Patient/Caregiver Education Goal Demonstrate Post-Op Precautions,Caregiver Independent Assisting Patient Days to Meet Goals 10 Frequency of Treatment Frequency Of Treatment Once a Day Treatment Plan OT Treatment Plan ADL Training,Functional Cognition Training,Functional Mobility,Vision Retraining, Patient/Family Education Other Treatment Recommendations and Next shower/caregiver training Treatment Focus Discharge Recommendations OT Discharge Recommendations Home with 24/7 Assist Available Home Equipment Needs shower chair versus tub bench, FWW Transportation Needs at Discharge Private Vehicle
--- NOTE | 2021-05-05 10:40 | PT.IIE ---
Current Diagnoses Spondylolisthesis, lumbosacral region (05/04/21) Spinal stenosis, lumbar region without neurogenic claudication (05/04/21) Surgery Performed Operation Date: 05/04/21 09:15 Actual Procedures p L5-S1 TLIF - Gabriel Marcelino MD Medical History (Last Reviewed 05/05/21 @ 09:43 by Lisa Solis PA-C) ADHD Back injury (11/11/19) Chicken pox Chronic back pain Easy bruisability Foot pain Fractures Mandible fracture PTSD (post-traumatic stress disorder) Shoulder pain Spinal stenosis Spondylolisthesis Physical Therapy Inpatient Evaluation/Re-Eval M1 PT/OT-IP Prior Functional Status Start: 05/05/21 12:13 Freq: NEEDED Status: Active Protocol: Document 05/05/21 12:13 [facility] (Rec: 05/05/21 12:31 [facility] [id number]) Medical Review Prior Functional Status Communication Independent Mobility and Gait Pt states recently has been using a cane to get around. Activities of Daily Living and IADL's Pt states able to do ADL's and IADl needs however with much pain. Prior Functional Level (Other details) Pt spouse during the day and therefore pt and his are loking to see if anyone can come and stay with him to assist as needed. Social History Household Members spouse Living Arrangements RV Number of Floors (Floors) One Floor Number of Stairs To Enter/Railing? Pt has 6 steps with left rail to enter. Home Environment Standard Height Toilet,Tub/ Shower Home Equipment Four Wheel Walker,Straight Cane M2 PT-IP Current Condition Start: 05/05/21 12:39 Freq: NEEDED Status: Active Protocol: Document 05/05/21 10:40 AB (Rec: 05/05/21 12:55 AB [id number]) Physical Therapy Current Condition Current Condition Evaluation Date 05/05/21 Treatment Diagnosis s/p L5S1 fusion/lami; difficulty in walking Onset Date 05/04/21 M3 PT-IP Subjective Start: 05/05/21 12:39 Freq: NEEDED Status: Active Protocol: Document 05/05/21 10:40 AB (Rec: 05/05/21 12:55 AB [id number]) Subjective Physical Therapy Visit Type Type Initial Evaluation Visit Start Time 10:40 Visit Stop Time 11:05 Total Visit Minutes 25 Number of PARK WORKER SUPERVISOR Visits 0 Physical Therapy Visit Comments Patient Comments c/o increase back pain but agreed to do PT Therapy Pain Assessment Pain When Pain Assessed At Rest Pain Present Pain Present Pain Reported Location back Intensity 6 Scale Used increases with mobility Pain Behaviors Facial Grimacing,Guarding, Holding Area,Restlessness, Wincing Pain Management Techniques Apply Cold,Distraction, Modification of Treatment,Re- positioning,Timing of Activity with Medications M4 PT-IP Mobility and Gait Start: 05/05/21 12:39 Freq: NEEDED Status: Active Protocol: Document 05/05/21 10:40 AB (Rec: 05/05/21 12:55 AB [id number]) PT-Bed Mobility Assessment Rolling Type of Rolling Log Rolling Level of Assist Standby Assistance Supine to Sit Supine to Sit Standby Assistance,Bedrails Sit to Supine Sit to Supine Standby Assistance,Bedrails PT-Transfer Assessment Sit to and From Stand Sit to and from Stand Moderate Assistance,Maximum Assistance,1 Person Assistance ,Use of Upper Extremities Equipment Transfer Assistive Device Gait Belt,Front Wheeled Walker Orthotic/Prosthetic Devices or Brace: No Transfers Transfer Destination Bed Transfer Technique ambulated Transfer Ability Level of Assist Moderate Assistance,Maximum Assistance,1 Person Assistance ,Use of Upper Extremities Comments Mobility Comments pt sitting on chair and c/o increase back pain but agreed to do PT. able to recall back precautions. pt stated that goes to work and cannot stay with him to gely him. stated that the doctor has not given him much information. stated that he is hoping to stay in the hospital until tuesday and spouse will assist him on the weekend but will be by himself again afterwards when spouse goes back to work. pt completed sit to stand from the chair mod to max A and cues. (+) shaking/tremors and increase B knee bending. cues to use UE on FWW for support. ambulated towards the bed using FWW mod to max A and cues with (+) B knee buckling requiring max A for stability. pt sat on EOB. demonstrated sit to supine log roll SBA. pt agreed to get up again, log roll supine to sit using bed rail SBA. completed sit to stand mod A and cues and step transfer to chair using FWW mod to max A and cues using FWW. positioned pt on chair. call light and table placed within reach. Gait Assessment Gait Gait Assistance Required: Minimum Assistance,Moderate Assistance Distance (Feet) 12 Able to Maintain Weight Bearing Status Yes During Gait Assistive Devices Assistive Device Gait Belt,Front Wheeled Walker Orthotic/Prosthetic Devices or Brace: No Gait Deviations General Gait Pattern Antalgic,Decreased Stride Length,Decreased Feet Clearance,Flexed Trunk,Step-to Gait Factors Limiting Gait Function Factors Limiting Gait Function Decreased Activity Tolerance, Decreased Strength,Difficulty Following Directions,Limited Range of Motion,Pain,Poor Balance,Poor Safety Awareness PT-Balance Assessment Sitting Balance and Reactions Static Sitting Balance Ability Good Dynamic Sitting Balance Ability Good Standing Balance and Reactions Static Standing Balance Ability Fair Dynamic Standing Balance Ability Poor Device Used FWW M5 PT-IP Objective Assessments Start: 05/05/21 12:39 Freq: NEEDED Status: Active Protocol: Document 05/05/21 10:40 AB (Rec: 05/05/21 12:55 AB [email or web address]) Orientation Orientation/Cognition Level of Alertness Alert Orientation Name,Age,Birthday,Date,Place, Situation Language Function Ability No Deficits Noted Safety Awareness Decreased Safety Awareness Gross Range of Motion Lower Extremity ROM Assessment Within Functional Limits Strength Lower Extremity Strength Assessment Bilaterally Impaired Hip 3/5 Knee 3+/5 Coordination Assessment Gross Coordination Gross Coordination WNL Muscle Tone Muscle Tone WNL Yes M6 PT-IP Treatment Start: 05/05/21 12:39 Freq: NEEDED Status: Active Protocol: Document 05/05/21 10:40 AB (Rec: 05/05/21 12:55 AB [email or web address]) Physical Therapy Treatment Education Education Provided Precautions,Weight Bearing Status,Safety M7 PT-IP Assessment and Plan Start: 05/05/21 12:39 Freq: NEEDED Status: Active Protocol: Document 05/05/21 10:40 AB (Rec: 05/05/21 12:55 AB [email or web address]) PT Summary Assessment and Plan Potential Rehabilitation Potential Fair Status of Condition at Evaluation Evolving Summary Impairments Pain,ROM,Strength,Balance, Coordination,Sensation,Tone, Cognition,Bed Mobility, Transfers,Gait,Activity Tolerance Assessment Summary pt requiring mod to max A and max cues with mobility using FWW. Pt unable to tolerate much activity due to c/o increase back pain. pt with ( +) B knees buckling during ambulation requiring max A for stability. pt presents with heavy use of UE on FWW for support. pt will require SNF rehab at this time. pt needs to be more independent than current level to safely go home . pt has 6 steps to enter the house with L rail and due to BLE weakness and increase pain is not appropriate to do stairs at this time. will continue to assess progress. Goals Bed Mobility Goal Standby Assistance Transfer Goal Standby Assistance,Front Wheeled Walker Gait Goal Standby Assistance,Front Wheel Walker Gait Distance 200 Other Goals up/down 6 steps L rail ascending SBA Days to Meet Goals 10 Frequency of Treatment Frequency Of Treatment Twice a Day Treatment Plan Physical Therapy Treatment Plan Bed Mobility Training,Transfer Training,Gait Training, Therapeutic Exercise,Balance Retraining,Post Op Education, Discharge Planning,Hot or Cold Pack,Neuromuscular Re-ed, Coordination Retraining,Manual Therapy Other Recommendations and Next Treatment ambulation Focus Precautions Lumbar Precautions Log Roll,No Twisting,Limit Bending,Lifting Restriction of 10 lbs,Gait Belt above Incisional Area Recommendations To Nursing Amount of Assist Needed 1 Person Assist Discharge Recommendations PT Discharge Recommendations SNF Rehab Equipment Needed for Home Before FWW if pt goes home Discharge Transportation Needs at Discharge Private Vehicle,Wheelchair/ Cabulance
[2021-05-05] MEDS: HYDROMORPHONE 2 MG TABLET PO ×3 (12:02→21:30)
--- NOTE | 2021-05-05 13:57 | PT.IPTN ---
Current Diagnoses Spondylolisthesis, lumbosacral region (05/04/21) Spinal stenosis, lumbar region without neurogenic claudication (05/04/21) Surgery Performed Operation Date: 05/04/21 09:15 Actual Procedures p L5-S1 TLIF - Gabriel Marcelino MD Physical Therapy Treatment Note M2 PT-IP Current Condition Start: 05/05/21 12:39 Freq: NEEDED Status: Active Protocol: Document 05/05/21 10:40 AB (Rec: 05/05/21 12:55 AB [email or web address]) Physical Therapy Current Condition Current Condition Evaluation Date 05/05/21 Treatment Diagnosis s/p L5S1 fusion/lami; difficulty in walking Onset Date 05/04/21 M3 PT-IP Subjective Start: 05/05/21 12:39 Freq: NEEDED Status: Active Protocol: Document 05/05/21 14:36 AB (Rec: 05/05/21 15:49 AB [email or web address]) Subjective Physical Therapy Visit Type Type Treatment Note Visit Start Time 13:57 Visit Stop Time 14:12 Total Visit Minutes 15 Number of ALUMINUM BOATS ASSEMBLER Visits 0 Physical Therapy Visit Comments Patient Comments pt agreed to do ambulation; continues to c/o increas back pain Therapy Pain Assessment Pain When Pain Assessed At Rest Pain Present Pain Present Pain Reported Location back Intensity 10 Scale Used Numeric (0 - 10) Pain Behaviors Facial Grimacing,Guarding, Holding Area,Restlessness, Wincing Pain Management Techniques Apply Cold,Distraction, Modification of Treatment,Re- positioning,Timing of Activity with Medications M4 PT-IP Mobility and Gait Start: 05/05/21 12:39 Freq: NEEDED Status: Active Protocol: Document 05/05/21 14:36 AB (Rec: 05/05/21 15:49 AB [email or web address]) PT-Bed Mobility Assessment Rolling Type of Rolling Log Rolling Level of Assist Standby Assistance Supine to Sit Supine to Sit Standby Assistance,Bedrails Sit to Supine Sit to Supine Standby Assistance,Bedrails PT-Transfer Assessment Sit to and From Stand Sit to and from Stand Maximum Assistance,1 Person Assistance Equipment Transfer Assistive Device Gait Belt,Front Wheeled Walker Orthotic/Prosthetic Devices or Brace: No Comments Mobility Comments completed log roll supine to sit SBA. completed sit to stand max A and cues and ambulated in room using FWW max A and max cues. (+) L knee buckling x 5 requiring assist to guard/block L knee to prevent from giving out and max cues for quads contraction . presents with very slow aj, heavy UE use on FWW and decrease BLE elevation during ambulation. pt ambulated back to the bed. completed sit to suine SBA. positioned in bed. call light and table placed within reach . pt requested to lay on his side and postioned with ice pack. Gait Assessment Gait Gait Assistance Required: Maximum Assistance Distance (Feet) 25 Able to Maintain Weight Bearing Status Yes During Gait Assistive Devices Assistive Device Gait Belt,Front Wheeled Walker Orthotic/Prosthetic Devices or Brace: No Gait Deviations General Gait Pattern Antalgic,Decreased Stride Length,Decreased Feet Clearance,Step-to Gait Factors Limiting Gait Function Factors Limiting Gait Function Decreased Activity Tolerance, Decreased Strength,Limited Range of Motion,Pain,Poor Balance,Poor Safety Awareness M5 PT-IP Objective Assessments Start: 05/05/21 12:39 Freq: NEEDED Status: Active Protocol: Document 05/05/21 10:40 AB (Rec: 05/05/21 12:55 AB [email or web address]) Orientation Orientation/Cognition Level of Alertness Alert Orientation Name,Age,Birthday,Date,Place, Situation Language Function Ability No Deficits Noted Safety Awareness Decreased Safety Awareness Gross Range of Motion Lower Extremity ROM Assessment Within Functional Limits Strength Lower Extremity Strength Assessment Bilaterally Impaired Hip 3/5 Knee 3+/5 Coordination Assessment Gross Coordination Gross Coordination WNL Muscle Tone Muscle Tone WNL Yes M6 PT-IP Treatment Start: 05/05/21 12:39 Freq: NEEDED Status: Active Protocol: Document 05/05/21 14:36 AB (Rec: 05/05/21 15:49 AB [email or web address]) Physical Therapy Treatment Education Education Provided Precautions,Safety M7 PT-IP Assessment and Plan Start: 05/05/21 12:39 Freq: NEEDED Status: Active Protocol: Document 05/05/21 14:36 AB (Rec: 05/05/21 15:49 AB [email or web address]) PT Summary Assessment and Plan Potential Rehabilitation Potential Fair Summary Impairments Pain,ROM,Strength,Balance, Coordination,Sensation,Tone, Cognition,Bed Mobility, Transfers,Gait,Activity Tolerance Progress Towards Goals Slow Progress due to Pain,Slow Progress due to Activity Tolerance Assessment Summary pt continues to c/o 04/05 LBP and has (+) L knee buckling. pt unable to tolerate much activity due to pain. Pt needs to be more functional and independent than current level and will need SNF rehab to improve overall strength and function mobility independence. Goals Bed Mobility Goal Standby Assistance Transfer Goal Standby Assistance,Front Wheeled Walker Gait Goal Standby Assistance,Front Wheel Walker Gait Distance 200 Other Goals up/down 6 steps L rail ascending SBA Days to Meet Goals 10 Frequency of Treatment Frequency Of Treatment Twice a Day Treatment Plan Physical Therapy Treatment Plan Bed Mobility Training,Transfer Training,Gait Training, Therapeutic Exercise,Balance Retraining,Post Op Education, Discharge Planning,Hot or Cold Pack,Neuromuscular Re-ed, Coordination Retraining,Manual Therapy Other Recommendations and Next Treatment ambulation Focus Precautions Lumbar Precautions Log Roll,No Twisting,Limit Bending,Lifting Restriction of 10 lbs,Gait Belt above Incisional Area Recommendations To Nursing Amount of Assist Needed 1 Person Assist Discharge Recommendations PT Discharge Recommendations SNF Rehab Equipment Needed for Home Before FWW if pt goes home Discharge Transportation Needs at Discharge Private Vehicle,Wheelchair/ Cabulance
--- NOTE | 2021-05-05 16:21 | CM.DANOTE ---
DCP Assessment: Patient is a 45 yr old male who was admitted for back fusion surgery preformed by Dr. TEJADA. CM met with patient at the bedside and explained role. patient was alert and oriented x4 during CM visit. patient stated he is open to going to SNF to help build strength before DC home with his . Patient lives in an RV with his who works Mon- Fri and is not able to assist the patient at home during recovery. Patient is currently her on L&I claim and has a window caser Ruthie Caban [phone] cm called her and she stated that patient has a purchasing and claims supervisor through [employer] and her name is bridgett and she will be the person processing an authorization for SNF. CM called Bridgett at [phone] [facility] with her stating we need a SNF auth and asked her to call CM department back. CM spoke with Nitin at [facility] who is open to review clinicals - Sent Clinicals to [facility] for them to review for poss admission. Spoke with lavelle at [facility] and they are not contracted with L&I. CM called [facility] and was told they are not taking new admissions right now and CM left VM with Monet at [facility]. I: L&I and self pay Plan: DC to SNF when medically stable- [facility] reviewing, need L&I SNF auth, called purchasing and claims supervisor Bridgett and [facility] for auth. PT recommends SNF. CM department will continue to follow PASRR complete. Holly Desir RNoil expert Discharge Planning/Care Management CM Discharge Assessment Start: 05/05/21 15:53 Freq: Status: Active Protocol: Document 05/05/21 15:53 (Rec: 05/05/21 16:21 [id number]) Discharge Planning Assessment Assigned Embossing Press Operator Apprentice Holly Desir RNwire machine cutter DPOA/Assigned Designee Name Alecia Raman (life partner) Contact Information [phone] Advance Directives? No History Provided By Patient,Medical Record Prior Living Arrangements RV Comment has 6 steps to get into RV Household Members spouse Type of transporation used prior to Drives own vehicle admit Independent with ADL's Yes Is patient alert and oriented? Yes Caregiver for Another No Patient/Family Preference Detention Facility Comment Open to SNF since having pain with PT and OT and limited family support at home. L&I called and sent email to get SNF. Discharge Plan Detention Facility Referrals Initiated Detention If patient plan is SNF: Has PASSR been Yes completed? Medicare Choice List Provided Yes SNF/HH Preference [facility] reviewing Contact Name/Phone Nitin [phone] Has Agency SNF been contacted Yes Whiteboard Updated in Patient Room with Yes name and ext. # of Embossing Press Operator Apprentice Review Status In Process Next Review Type Continued Stay Review Pre-Anesthesia Assessment Start: 04/27/21 09:55 Freq: Status: Active Protocol: Document 04/27/21 09:55 CAB (Rec: 04/27/21 10:56 CAB [id number]) Pre-Anesthesia Assessment Patient Information Reviewed Via Phone Assessment Assessment Completed With Patient Diagnostic Results BMP/CMP,Urinalysis Comment BMP, UA only labs provided, COVID screen @ 05/01/21 Primary Care Provider Too Morris Seen Specialist in Last 12 Months Yes Specialist Seen Orthopedist,Other Primary Language Palestinian Drilling Field Professional Required No Height 172.72 cm Weight 70.307 kg Body Mass Index (BMI) 23.6 Hearing Ability Normal Visual Assist Glasses Dentition Type Teeth, Natural Present,Teeth, Missing Hx Anesthesia Reactions Yes: I come out of it very weird, emotional Hx Family Anesthesia Reaction No Hx Malignant Hyperthermia No Hx Blood Transfusions No Anesthesia Review Requested No alcohol intake former Alcohol Intake Frequency Other: Hx ETOH abuse, sober since 2019 Smoking Status Current every day smoker Tobacco type smokeless tobacco Substance Use Type marijuana Comment Pt advised not to smoke marijuana 24 hours prior to surgery Pain Present Pain Reported Musculoskeletal Symptoms Abnormal Gait,Back Pain, Difficulty Walking,Muscle Weakness,Neck Pain,Radiating Pain into Limb,Tingling History of Falling (Recent or History of Yes ) Patient is completely paralyzed or No completely immobile Prosthesis or Orthotic Device Cane Mental Status Oriented to own ability Is patient on oxygen? No Does patient have WISDOM/SOB No Hx Sleep Apnea No Currently Taking a Beta Wil No Hx Chest Pain No Hx SOB No Hx Syncope or Dizziness Yes: Occasional dizziness r/t fall 10/2019 Anti-Coagulant Therapy No Has a Physician Office Secretary No Cardiac Testing No Hx Pacemaker/ICD No Pacemaker Rep Required? 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 Received a COVID vaccine? No Received all doses? No Marital Status Lives With spouse Prior Living Arrangements RV Support System Spouse Does the Patient Have Assistance After Yes Surgery Patient Discharge Plan Description Return Home Comment Pt not advised on length of stay per surgeon Feels Safe in Current Environment Yes Been Physically Hurt or Threatened By a No Person in Current Environment Do you have thoughts of harming yourself None or others? Are you currently considering suicide? No Do you have a plan to hurt yourself or No Plan others? Do You Have Any Spiritual Beliefs That No May Affect Your HC Choices? Do You Have Any Cultural Practices That No May Affect Your HC Choices? Who Can We Speak to About Patient's Care Family, friends Identifying Code for Release of Patient Declines to issue Information Health Care Proxy/Next of Kin Alecia () Health Care Proxy Emergency Contact Name Alecia () Emergency Contact Advance Directives? No Power of Acid Conditioning Worker No PAC Instructions Durable medical equipment, Medications to take/avoid, Nasal antibiotic,No ETOH/ petroleum product on skin DOS, NPO,Post-op transportation,Pre -surgical wash,Sturdy shoes/ comfortable clothes,Do not bring valuables and remove jewelry
[2021-05-05] MEDS: HYDROMORPHONE 4 MG TABLET PO (19:03)
[2021-05-05] MEDS: SENNOSIDES 8.6 MG TABLET 17.2 MG PO (20:35)
[2021-05-05] MEDS: PRAZOSIN 1 MG CAPSULE 4 MG PO (20:41)
[2021-05-05] MEDS: HYDROMORPHONE 4 MG TABLET 2 MG PO (23:02)
--- NOTE | 2021-05-05 23:17 | PC.NURSE ---
Addendum entered by Libia Tavera R.N. 05/06/21 04:57: c/o pain 7-8 throughout shift. Original Note: SHIFT: Report received, care assumed 193. Pt. alert, oriented, moaning and intermittently breathing fast or holding breath. Appears to be in pain, as well as anxious. C/o pain 7-8. States pain at incision site feels like a constant throb/spasm. Discussed post-op swelling. Pt. receiving medication as needed and as ordered. Also received fresh ice pack for his back and was helped to reposition frequently. Pt. stood and walked a little about the room with walker, gait belt, 1-person assist. Pt's leg gives out occasionally, he is able to catch himself. Sat on toilet to attempt BM, without success. Called Dr. Marcelino to clarify hydromorphone orders, as there were orders for scheduled PO, PRN PO, and IV PRN. Pt to receive max PO dose of 4 mg in a 4-hour period, with IVP PRN. Order modified per instruction. I am administering 2mg PO as scheduled every 4 hours, and 2 mg PO PRN in-between scheduled doses. Will utilize IVP hydromorphone if necessary, and continue to use PRN diazepam. Pt. declines Vistaril, stating that it doesn't do anything for the pain. Pt. febrile 101 via temporal monitor at 1900, 100.3 at 2100. Pt c/o feeling hot. Called Dr. Marcelino for acetaminophen order, then realized pt is allergic. Took oral temp, measured 98.8. Will continue to monitor.
[2021-05-06] VITALS: BP 159/89; PULSE 105; RESP 20; TEMP 37.9; O2SAT 95
[2021-05-06] MEDS: HYDROMORPHONE 2 MG TABLET PO ×6 (01:19→20:57)
[2021-05-06] MEDS: HYDROMORPHONE 0.5 MG INJ IV ×2 (01:20→08:32)
[2021-05-06] MEDS: diazePAM 5 MG TABLET PO ×3 (03:25→20:57)
[2021-05-06] MEDS: HYDROMORPHONE 4 MG TABLET 2 MG PO ×2 (03:25→07:22)
[2021-05-06 04:58] VITALS: BP 135/69; PULSE 85; RESP 16; TEMP 37.2; O2SAT 95
--- NOTE | 2021-05-06 07:30 | P.PN_ITS ---
Subjective Subjective Date Patient Seen: 05/06/21 Time Patient Seen: 07:30 Interval history: Pain is severe. Denies fever or chills. No nausea or vomiting. Patient does not have anybody at home to assist him. Exam Vital Signs (past 8 hours): - 05/06/21 00:00 05/06/21 04:58 Temperature 100.3 F H 98.9 F Pulse Rate 105 H 85 Respiratory Rate 20 16 Blood Pressure 159/89 H 135/69 Pulse Oximetry 95 95 Oxygen Delivery Method Room Air Oxygen Flow Rate 0 Narrative Exam Narrative: 45-year-old male resting in bed in no apparent distress. Motor functions intact bilateral lower extremities. Sensation grossly intact to light touch bilateral lower extremities. [facility], [facility] Medical History ADHD Back injury (11/11/19) Chicken pox Chronic back pain Easy bruisability Foot pain Fractures Mandible fracture PTSD (post-traumatic stress disorder) Shoulder pain Spinal stenosis Spondylolisthesis Surgical History Cataract extraction status, left eye Hx of shoulder surgery Social History household members: spouse Smoking Status: Current every day smoker alcohol intake: former Assessment & Plan Post-op Postoperative Procedures: Procedures Operation Date: 05/04/21 09:15 Actual Procedure Side Surgeon p L5-S1 TLIF Gabriel Marcelino MD Postoperative day: 2 Postoperative status narrative: Stable Postoperative plan narrative: Multimodal pain management Mobilize with physical therapy Limit bending, twisting, lifting Disposition likely retirement facility tomorrow
[2021-05-06 07:44] VITALS: BP 151/92; PULSE 86; RESP 20; TEMP 36.9; O2SAT 98
--- NOTE | 2021-05-06 08:06 | CM.DPC ---
Addendum entered by Marina De Leon R.N. 05/06/21 14:18: Met with patient to give him updates. Introduced self and role. Updated patient as far as this cyber intel planner talking to [facility], [place], as well as [facility] admissions. Confirmed with him, he really thinks skilled rehab would help him, his works 5 days a week, and could really use the rehab. They reside in an in [facility]. Patient stated that his injury occurred approximately 2 years ago when he fell off of a roof. He is a builder of custom homes. Originally, he had shoulder surgery, but did go home afterwards. He just had Lumbar Fusion here at the hospital on 05-04. He is continuing to have severe pain. He stated, it was hard to work with therapy, didn't really want to, but knows that he has to. Let him know that this case folder will continue to update him. Addendum entered by Marina De Leon R.N. 05/06/21 11:32: Sandrine is assisting Nitin in admissions at [facility]. She was wanting to know if patient was wanting to smoke, and how hospital was handling it. Confirmed with Simone, patient's nurse, that patient has not been asking to smoke. He has been having increased pain, 10 out of 10, and not working with P.T. today. Sandrine indicated that she will call Kimmie at [facility] today. Sandrine is asking for additional information to be faxed. Faxed her over care management notes, med list, P.T. and O.T. notes per her request. She will review. Addendum entered by Marina De Leon R.N. 05/06/21 09:24: Spoke to Kimmie at &. She is asking for operative report, P.T, O.T, and notes from provider indicating usp is necessary. For now, faxed her over face sheet, operative report, today's progress note, yesterday's progress note, P.T, and O.T. notes from yesterday. Her fax number is: [phone]. His claim number is: [id number]. Included this on fax sheet. Spoke to Nitin at [facility], and his nursing service administrator is reviewing. Gave him Kimmie's phone number, and gave Kimmie his as well. Have not yet confirmed if [facility] will accept, and Kimmie needs to ensure that they accept [facility] as well. Addendum entered by Marina De Leon R.N. 05/06/21 08:22: Kimmie, occupational nurse at [facility] called. Her phone number is: [phone]. Updated her on surgery, she had pressing call, will review and call back. Original Note: DCP Cont: Called and spoke to Eliza at [facility] claims. Her phone number is: [phone]. Let her know that patient is requesting usp, he just had back surgery. She indicated that she will speak to her occupational nurse, and call back for additional information. Let her know that [facility] is reviewing. P: DCP to continue to follow. Attempting to get patient into a skilled rehab facility post back surgery. Marina De Leon RN/Event Marketing Intern
[2021-05-06] MEDS: MAGNESIUM HYDROXIDE 30 ML UDC PO (08:32)
[2021-05-06] MEDS: DOCUSATE 100 MG CAPSULE PO ×2 (08:32→20:57)
[2021-05-06] MEDS: hydrOXYzine pamoate 25 MG CAPSULE 50 MG PO ×2 (08:32→12:28)
--- NOTE | 2021-05-06 09:09 | OT.IPNOTE ---
Pt lying on his stomach when OT came in to see the pt. Pt states hurting too much to get up at this time and did not sleep well. Pt states has been getting up with nursing staff to walk to the bathroom with FWW. Call light placed next to the pt within reach. Pt states will get up later with PT.
[2021-05-06] MEDS: METHYLPHENIDATE 5 MG TABLET 30 MG PO ×2 (10:11→12:42)
[2021-05-06] MEDS: BISACODYL 10 MG SUPP PR (10:17)
--- NOTE | 2021-05-06 11:14 | PT.IPTN ---
Current Diagnoses Spondylolisthesis, lumbosacral region (05/04/21) Spinal stenosis, lumbar region without neurogenic claudication (05/04/21) Surgery Performed Operation Date: 05/04/21 09:15 Actual Procedures p L5-S1 TLIF - Gabriel Marcelino MD Physical Therapy Treatment Note M2 PT-IP Current Condition Start: 05/05/21 12:39 Freq: NEEDED Status: Active Protocol: Document 05/06/21 10:52 SP (Rec: 05/06/21 13:29 SP [id number]) Physical Therapy Current Condition Current Condition Evaluation Date 05/05/21 Treatment Diagnosis s/p L5S1 fusion/lami; difficulty in walking Onset Date 05/04/21 M3 PT-IP Subjective Start: 05/05/21 12:39 Freq: NEEDED Status: Active Protocol: Document 05/06/21 10:52 SP (Rec: 05/06/21 13:29 SP [id number]) Subjective Physical Therapy Visit Type Type Treatment Note Visit Start Time 10:52 Visit Stop Time 11:14 Total Visit Minutes 23 Notes JESUS Diaz assisted ALLEY WORKER Adriana as 2nd person physical assist as needed while being directly supervised and instructed throughout tx. Number of ALLEY WORKER Visits 1 Physical Therapy Visit Comments Patient Comments pt agreed to mobilize with therapy; continues to c/o increased 04/05 back pain Therapy Pain Assessment Pain When Pain Assessed At Rest Pain Present Pain Present Pain Reported Location back Intensity 10 Scale Used at rest and with mobility across back into B buttocks Pain Behaviors Facial Grimacing,Guarding, Holding Area,Moaning, Restlessness,Wincing Pain Management Techniques Apply Cold,Distraction, Modification of Treatment,Re- positioning,Timing of Activity with Medications M4 PT-IP Mobility and Gait Start: 05/05/21 12:39 Freq: NEEDED Status: Active Protocol: Document 05/06/21 10:52 SP (Rec: 05/06/21 13:29 SP [id number]) PT-Bed Mobility Assessment Rolling Type of Rolling Log Rolling Level of Assist Standby Assistance Supine to Sit Supine to Sit Standby Assistance,Moderate Assistance,1 Person Assistance Sit to Supine Sit to Supine Minimal Assistance,1 Person Assistance,Bedrails Scooting Scooting to Edge of Bed Contact Guard Assistance PT-Transfer Assessment Sit to and From Stand Sit to and from Stand Contact Guard Assistance, Moderate Assistance,2 Person Assistance,Use of Upper Extremities Equipment Transfer Assistive Device Gait Belt,Front Wheeled Walker Orthotic/Prosthetic Devices or Brace: No Transfers Transfer Destination Bed Transfer Technique pt ambulated using FWW Transfer Ability Level of Assist Minimal Assistance,2 Person Assistance,Use of Upper Extremities Comments Mobility Comments Pt laying on L side when arrived, reported pain uncontrolled with meds 10/10 but willing to mobilize, states constipated and maybe why also painful. L SL>sitting UE on bed and rails Mod A x1 for trunk righting, CGA scoot to EOB, good upright posture BUE supporting sit balance SBA at EOB. ALLEY WORKER provided intermittent education for slow controlled breath and gentle TA facilitation for decrease back tension and spinal stabilization awareness . Sit>Stand Mod A x1, CGA A x1 with heavy BUE on FWW, intermittent cues for L quad facilitation for safety pre LE advancements, improved LLE stability during RLE advancement, no buckling. Min A and CGA x2 approx 4 ft gait to end of bed, noted LLE unsteady during stop stand brief rest, recommended and returned to L side of bed Min Ax1 slow descent to sit down for safety no buckling. Sit> supine Min A x1, CGA x1 for LE support into bed, cued for maintain spinal precautions and stabilization knees with trunk LR onto back to, increased pain so pt performed LR onto L side CGA using bed rail improved reported positioning than supine. ALLEY WORKER provided CP to back and pillows between BLE/ posterior back and front between arms for for spinal stabilzation with pt feedback feels little better. Pt had call light and all needs in reach before left, bed alarmed. Gait Assessment Gait Gait Assistance Required: Minimum Assistance,2 Person Assist Distance (Feet) 8 Able to Maintain Weight Bearing Status Yes During Gait Assistive Devices Assistive Device Gait Belt,Front Wheeled Walker Orthotic/Prosthetic Devices or Brace: No Gait Deviations General Gait Pattern Antalgic,Decreased Stride Length,Decreased Feet Clearance,Step-to Gait Factors Limiting Gait Function Factors Limiting Gait Function Decreased Activity Tolerance, Decreased Strength,Limited Range of Motion,Pain,Poor Balance,Poor Safety Awareness, Respiratory Distress Comments Gait Comments see mobility comments. Stair Climbing Assessment Comments Stair Climbing Comments unsafe to assess at this time, will need to complete 6 stairs prior and for safety DC home when able. PT-Balance Assessment Sitting Balance and Reactions Static Sitting Balance Ability Fair Dynamic Sitting Balance Ability Fair Standing Balance and Reactions Static Standing Balance Ability Poor Dynamic Standing Balance Ability Poor Device Used FWW Comments Other Balance Tests/Deviations/Treatment Pt increased support in : standing for stability support secondary to pain an unsteady L>RLEs, improved from last tx . M5 PT-IP Objective Assessments Start: 05/05/21 12:39 Freq: NEEDED Status: Active Protocol: Document 05/05/21 10:40 AB (Rec: 05/05/21 12:55 AB [id number]) Orientation Orientation/Cognition Level of Alertness Alert Orientation Name,Age,Birthday,Date,Place, Situation Language Function Ability No Deficits Noted Safety Awareness Decreased Safety Awareness Gross Range of Motion Lower Extremity ROM Assessment Within Functional Limits Strength Lower Extremity Strength Assessment Bilaterally Impaired Hip 3/5 Knee 3+/5 Coordination Assessment Gross Coordination Gross Coordination WNL Muscle Tone Muscle Tone WNL Yes M6 PT-IP Treatment Start: 05/05/21 12:39 Freq: NEEDED Status: Active Protocol: Document 05/06/21 10:52 SP (Rec: 05/06/21 13:29 SP [id number]) Physical Therapy Treatment Education Education Provided Precautions,Safety M7 PT-IP Assessment and Plan Start: 05/05/21 12:39 Freq: NEEDED Status: Active Protocol: Document 05/06/21 10:52 SP (Rec: 05/06/21 13:29 SP [id number]) PT Summary Assessment and Plan Potential Rehabilitation Potential Fair Status of Condition at Evaluation Evolving Summary Impairments Pain,ROM,Strength,Balance, Coordination,Sensation,Tone, Cognition,Bed Mobility, Transfers,Gait,Activity Tolerance Progress Towards Goals Slow Progress due to Pain,Slow Progress due to Activity Tolerance Assessment Summary pt continues to c/o 04/05 LBP and has unsteady LLE improves with cues but no buckling this tx. pt unable to tolerate much activity due to pain. Pt needs to be more functional and independent than current level and will need SNF rehab to improve overall strength and function mobility independence. Goals Bed Mobility Goal Standby Assistance Transfer Goal Standby Assistance,Front Wheeled Walker Gait Goal Standby Assistance,Front Wheel Walker Gait Distance 200 Other Goals up/down 6 steps L rail ascending SBA Days to Meet Goals 10 Frequency of Treatment Frequency Of Treatment Twice a Day Treatment Plan Physical Therapy Treatment Plan Bed Mobility Training,Transfer Training,Gait Training, Therapeutic Exercise,Balance Retraining,Post Op Education, Discharge Planning,Hot or Cold Pack,Neuromuscular Re-ed, Coordination Retraining,Manual Therapy Other Recommendations and Next Treatment bed mob, transfers, gait using Focus fWW, unsafe for 4WW at this time. Precautions Lumbar Precautions Log Roll,No Twisting,Limit Bending,Lifting Restriction of 10 lbs,Gait Belt above Incisional Area Other Precautions good recall to 3/3 precautions Recommendations To Nursing Amount of Assist Needed 1 Person Assist Discharge Recommendations PT Discharge Recommendations SNF Rehab Equipment Needed for Home Before FWW if pt goes home Discharge Transportation Needs at Discharge Private Vehicle,Wheelchair/ Cabulance
[2021-05-06 11:26] VITALS: BP 132/66; PULSE 80; RESP 18; TEMP 36.9; O2SAT 94
--- NOTE | 2021-05-06 12:25 | OT.IP.TRT ---
Current Diagnoses Spondylolisthesis, lumbosacral region (05/04/21) Spinal stenosis, lumbar region without neurogenic claudication (05/04/21) Surgery Performed Operation Date: 05/04/21 09:15 Actual Procedures p L5-S1 TLIF - Gabriel Marcelino MD Occupational Therapy Treatment Note M2 OT-IP Current Condition Start: 05/05/21 12:13 Freq: Status: Active Protocol: Document 05/05/21 12:13 [facility] (Rec: 05/05/21 12:31 [facility] [id number]) Occupational Therapy Current Condition Current Condition Evaluation Date 05/05/21 Treatment Diagnosis S/p L5-S1 Diagnosis Onset Date 05/04/21 Post Operative Precautions Lumbar Precautions Log Roll,No Twisting,Limit Bending,Lifting Restriction of 10 lbs,Gait Belt above Incisional Area M3 OT- IP Subjective and Pain Start: 05/05/21 12:13 Freq: Status: Active Protocol: Document 05/06/21 12:31 [facility] (Rec: 05/06/21 12:41 [facility] [id number]) OT- Subjective Occupational Therapy Visit Type Type Treatment Note Visit Start Time 12:08 Visit Stop Time 12:25 Total Visit Minutes 17 Occupational Therapy Visit Comments Patient Comments Pt agreed to get up to the sink and sit up for lunch. Patient/Caregiver Goals To go to rehab prior to going home. OT Pain Assessment Pain When Pain Assessed During Mobility Pain Present Pain Present Pain Reported Location back Intensity 9 Scale Used Numeric (0 - 10) M4 OT- IP ADL's Start: 05/05/21 12:13 Freq: Status: Active Protocol: Document 05/06/21 12:31 [facility] (Rec: 05/06/21 12:41 [facility] [id number]) OT KML-Stmu-Rzgywfs General Evaluation Self-Feeding Ability Independent OT ADL-Grooming General Evaluation Areas Needing Assistance Retrieving/Set-up of Grooming Items Comments OT Grooming Comments Set-up assist. Pt heavily having to hold onto the counter for his balance. OT ADL-Oral Care General Eval Oral Care Ability Independent Comments Oral Care Comments Pt able spit into a cup to best follow his back precautions. OT ADL-Toileting Comments OT Toileting Comments Pt not having to use the toilet at this time. M6 OT- IP Functional Cognition Start: 05/05/21 12:13 Freq: Status: Active Protocol: Document 05/06/21 12:31 [facility] (Rec: 05/06/21 12:41 [facility] [id number]) Cognitive Factors Limiting Selfcare Function Cognitive Comments Cognitive Assessment Comments Pt still in lots of pain and needing cue to try to relax. When asked if he has mentioned to ortho how much pain he is in, pt states, I do not want them to think I can not take it. Educated pt the importance of letting Ortho/ nursing be aware what is gong on so that he can best be helped. M7 OT- IP Mobility and Balance Start: 05/05/21 12:13 Freq: Status: Active Protocol: Document 05/06/21 12:31 [facility] (Rec: 05/06/21 12:41 [facility] [id number]) OT- Bed Mobility Assessment Supine to Sit Supine to Sit Assist Standby Assistance,Bedrails OT-Transfer Assessment Sit to and From Stand Sit to and from Stand Contact Guard Assistance Transfers Transfer Ability Minimal Assistance,Moderate Assistance Technique Transfer Destination Bed,Chair Transfer Technique Stand Step Pivot Devices Transfer Assistive Devices Gait Belt,Front Wheeled Walker Comments Mobility Comments Pt able to come to stand with CGA. Today noted pt tends to buckle with his right leg and hyperextend at his left knee while walking and having heavy use of his arms on the FWW. OT- Balance Assessment Sitting Balance and Reactions Static Sitting Balance Ability Good Dynamic Sitting Balance Ability Good Standing Balance and Reactions Static Standing Balance Ability Poor Comments Other Balance Tests/Deviations/Treatment Pt not able to stand without : use of his arm on a surface of FWW, pt tao at his knees. M8 OT- IP Objective Assessments Start: 05/05/21 12:13 Freq: Status: Active Protocol: Document 05/05/21 12:13 [facility] (Rec: 05/05/21 12:31 [facility] [id number]) OT-Muscle Tone Assessment Muscle Tone WNL Yes M9 OT- IP Assessment and Plan Start: 05/05/21 12:13 Freq: Status: Active Protocol: Document 05/06/21 12:31 [facility] (Rec: 05/06/21 12:41 [facility] [id number]) OT Summary Assessment and Plan Potential Rehabilitation Potential Good Analytic Complexity at Evaluation Low Summary OT Impairments Pain,Balance,Functional Mobility,Grooming,Dressing, Toileting,Bathing,Toilet Transfers,Shower Transfers Progress Towards Goals Slow Progress due to Pain,Slow Progress due to Activity Tolerance Assessment Summary Pt having pain and also today noted much buckling on his legs when up on his feet and now would benefit from skilled rehab prior to going home. Goals Grooming Goal Independent Dressing Goal Independent Toileting Goal Independent Toilet Transfer Goal Independent Shower Transfer Goal Independent Patient/Caregiver Education Goal Demonstrate Post-Op Precautions,Caregiver Independent Assisting Patient Days to Meet Goals 30 Frequency of Treatment Frequency Of Treatment Once a Day Treatment Plan OT Treatment Plan ADL Training,Functional Cognition Training,Functional Mobility,Vision Retraining, Patient/Family Education Other Treatment Recommendations and Next shower Treatment Focus Discharge Recommendations OT Discharge Recommendations SNF Rehab Transportation Needs at Discharge Wheelchair/Cabulance
--- NOTE | 2021-05-06 13:42 | PC.NURSE ---
Addendum entered by Fredy Curry R.N. 05/06/21 18:36: 1640- Pt c/o abd pain. States he is cramping and continues to feel constipated. Requesting PRN rx for abd pain. Educated pt that narcotic pain medications such as dilaudid exacerbate issues with constipation. He is agreeable at this time to taking additional bowel meds. He states he will hold off on narcotics for now since his back is comfortable at this time. Addendum entered by Fredy Curry R.N. 05/06/21 15:15: Called to Dr. Marceilno and discussed assessment findings as below. Reported ongoing constipation despite bowel med regimen. Dr. Marcelino states no new orders regarding pain mgmt, continue current regimen and monitor. Received orders for additional bowel meds. Original Note: Pt with difficult to control pain POD 2 TLIF and c/o constipation. Pt reports back pain initially 10/10. After PRN rx pain 7/10. His biggest complaints are back spasms and burning sensation to anterior thighs. He also states that at baseline he has some numbness to his left middle and ring fingers as well as his thumb. He is concerned that it may be getting worse. He has been sleeping on his left side and on top of that hand and is unsure if that may be a contributing factor. Placed call to HAILEE Juarez and left voice message to return call.
--- NOTE | 2021-05-06 15:48 | PT.IPTN ---
Current Diagnoses Spondylolisthesis, lumbosacral region (05/04/21) Spinal stenosis, lumbar region without neurogenic claudication (05/04/21) Surgery Performed Operation Date: 05/04/21 09:15 Actual Procedures p L5-S1 TLIF - Gabriel Marcelino MD Physical Therapy Treatment Note M2 PT-IP Current Condition Start: 05/05/21 12:39 Freq: NEEDED Status: Active Protocol: Document 05/06/21 15:13 ER (Rec: 05/06/21 16:36 ER [id number]) Physical Therapy Current Condition Current Condition Evaluation Date 05/05/21 Treatment Diagnosis s/p L5S1 fusion/lami; difficulty in walking Onset Date 05/04/21 M3 PT-IP Subjective Start: 05/05/21 12:39 Freq: NEEDED Status: Active Protocol: Document 05/06/21 15:13 ER (Rec: 05/06/21 16:36 ER [id number]) Subjective Physical Therapy Visit Type Type Treatment Note Visit Start Time 03:13 Visit Stop Time 03:26 Total Visit Minutes 13 Notes JESUS Diaz lead tx, directly supervised and instructed by JAXON Wright throughout tx. Number of [facility] Visits 2 Physical Therapy Visit Comments Patient Comments Pt agreed to PT. Said pain was 7/10 initially, increasing with exercise. Patient Goals Reduce pain. Therapy Pain Assessment Pain When Pain Assessed At Rest Pain Present Pain Present Pain Reported Location back Intensity 7 Scale Used Numeric (0 - 10) Description Aching,Burning,Shooting Pain Behaviors Facial Grimacing,Guarding, Holding Area,Restlessness, Wincing Pain Management Techniques Apply Cold,Distraction, Modification of Treatment,Re- positioning,Timing of Activity with Medications M4 PT-IP Mobility and Gait Start: 05/05/21 12:39 Freq: NEEDED Status: Active Protocol: Document 05/06/21 15:13 ER (Rec: 05/06/21 16:36 ER [id number]) PT-Bed Mobility Assessment Rolling Type of Rolling Log Rolling Level of Assist Standby Assistance Supine to Sit Supine to Sit Standby Assistance,1 Person Assistance Sit to Supine Sit to Supine Standby Assistance,1 Person Assistance Scooting Scooting to Edge of Bed Contact Guard Assistance PT-Transfer Assessment Sit to and From Stand Sit to and from Stand Contact Guard Assistance,1 Person Assistance,Use of Upper Extremities Equipment Transfer Assistive Device Gait Belt,Front Wheeled Walker Orthotic/Prosthetic Devices or Brace: No Transfers Transfer Destination Bed Transfer Technique pt ambulated using FWW Transfer Ability Level of Assist Contact Guard Assistance, Minimal Assistance,1 Person Assistance,Use of Upper Extremities Comments Mobility Comments Pt. in elevated supine (10 degrees) when arrived. Pt. reported pain of 7/10, described as burning, aching lumbar, radiating to front of thighs, and extending proximal to knee bilaterally. Pt. also complained of being constipated. Pt. performed log roll with SBA. Pt. performed sup >sit with SGA. Expressed increased pain upon sitting. Pt sit > stand using FWW walker and gait belt, with CGA +1. Pt. cued for deep, slow breaths to decrease pain. Pt. complied. Pt ambulated 30' using FWW, and Kiya+1, with cues for shorter step length, breath mgmt, and decreased hyperextension of LLE before swing phase. Pt. required one brief pause due to pain. Cued to control breathing. Pt. returned to bed, and was able to stand>sit using FWW, with UE support, and CGA. Pt. laterally scooted toward head of bed SBA, and sit> sup and log rolled to supine SBA. Pt. scooted up in bed MaxA+2 using transport pad. Therapist propped LE on 2 pillows with knees flexed to flatten lumbar region and relieve pain. Pt. reported decrease in pain with positioning. Elevated HOB, which provided additional relief. Call light, table, and all needs left within arms reach, bed alarmed. Gait Assessment Gait Gait Assistance Required: Minimum Assistance,1 Person Assist Distance (Feet) 30 Able to Maintain Weight Bearing Status Yes During Gait Assistive Devices Assistive Device Gait Belt,Front Wheeled Walker Orthotic/Prosthetic Devices or Brace: No Gait Deviations General Gait Pattern Antalgic,Decreased Stride Length,Decreased Feet Clearance,Step-to Gait Factors Limiting Gait Function Factors Limiting Gait Function Decreased Activity Tolerance, Decreased Strength,Limited Range of Motion,Pain,Poor Balance,Poor Safety Awareness, Respiratory Distress Comments Gait Comments See mobility. Stair Climbing Assessment Comments Stair Climbing Comments unsafe to assess at this time, will need to complete 6 stairs prior and for safety DC home when able. PT-Balance Assessment Sitting Balance and Reactions Static Sitting Balance Ability Fair Dynamic Sitting Balance Ability Fair Standing Balance and Reactions Static Standing Balance Ability Poor Dynamic Standing Balance Ability Poor Device Used FWW M5 PT-IP Objective Assessments Start: 05/05/21 12:39 Freq: NEEDED Status: Active Protocol: Document 05/05/21 10:40 AB (Rec: 05/05/21 12:55 AB [id number]) Orientation Orientation/Cognition Level of Alertness Alert Orientation Name,Age,Birthday,Date,Place, Situation Language Function Ability No Deficits Noted Safety Awareness Decreased Safety Awareness Gross Range of Motion Lower Extremity ROM Assessment Within Functional Limits Strength Lower Extremity Strength Assessment Bilaterally Impaired Hip 3/5 Knee 3+/5 Coordination Assessment Gross Coordination Gross Coordination WNL Muscle Tone Muscle Tone WNL Yes M6 PT-IP Treatment Start: 05/05/21 12:39 Freq: NEEDED Status: Active Protocol: Document 05/06/21 15:13 ER (Rec: 05/06/21 16:36 ER [id number]) Physical Therapy Treatment Education Education Provided Precautions,Safety M7 PT-IP Assessment and Plan Start: 05/05/21 12:39 Freq: NEEDED Status: Active Protocol: Document 05/06/21 15:13 ER (Rec: 05/06/21 16:36 ER [id number]) PT Summary Assessment and Plan Potential Rehabilitation Potential Fair Status of Condition at Evaluation Evolving Summary Impairments Pain,ROM,Strength,Balance, Coordination,Sensation,Tone, Cognition,Bed Mobility, Transfers,Gait,Activity Tolerance Progress Towards Goals Slow Progress due to Pain,Slow Progress due to Activity Tolerance Assessment Summary Pt. continues to c/o pain, initially, increasing with mobility. Pt SBA with mobility , CGA+1 with gait and FWW. Pt. able to perform all activities and motivated to do so, however total amount of activity is limited due to pain tolerance. Pt. needs to be more functional and independent than current level and will need SNF rehab to imrove overall strenght, functional mobility and independance. Goals Bed Mobility Goal Standby Assistance Transfer Goal Standby Assistance,Front Wheeled Walker Gait Goal Standby Assistance,Front Wheel Walker Gait Distance 200 Other Goals up/down 6 steps L rail ascending SBA Days to Meet Goals 10 Frequency of Treatment Frequency Of Treatment Twice a Day Treatment Plan Physical Therapy Treatment Plan Bed Mobility Training,Transfer Training,Gait Training, Therapeutic Exercise,Balance Retraining,Post Op Education, Discharge Planning,Hot or Cold Pack,Neuromuscular Re-ed, Coordination Retraining,Manual Therapy Other Recommendations and Next Treatment bed mob, transfers, gait using Focus fWW, unsafe for 4WW at this time. Precautions Lumbar Precautions Log Roll,No Twisting,Limit Bending,Lifting Restriction of 10 lbs,Gait Belt above Incisional Area Recommendations To Nursing Amount of Assist Needed 1 Person Assist Discharge Recommendations PT Discharge Recommendations SNF Rehab Equipment Needed for Home Before FWW if pt goes home Discharge Transportation Needs at Discharge Private Vehicle,Wheelchair/ Cabulance
[2021-05-06 16:35] VITALS: BP 126/77; PULSE 83; RESP 16; TEMP 36.8; O2SAT 98
[2021-05-06] MEDS: BISACODYL 5 MG TABLET 10 MG PO (16:41)
[2021-05-06] MEDS: polyethylene glycoL 3350 17 GM POWD.PACK PO ×2 (16:41→20:57)
[2021-05-06 20:35] VITALS: BP 141/78; PULSE 84; RESP 18; TEMP 36.7; O2SAT 98
[2021-05-06] MEDS: SENNOSIDES 8.6 MG TABLET 17.2 MG PO (20:57)
[2021-05-06] MEDS: PRAZOSIN 1 MG CAPSULE 4 MG PO (21:03)
[2021-05-07] MEDS: HYDROMORPHONE 2 MG TABLET PO ×5 (01:19→16:35)
[2021-05-07 01:22] VITALS: BP 120/65; PULSE 75; RESP 18; TEMP 36.7; O2SAT 98
[2021-05-07 08:00] VITALS: BP 128/86; PULSE 84; RESP 16; TEMP 36.7; O2SAT 99
--- NOTE | 2021-05-07 08:17 | CM.DPC ---
Addendum entered by Marina De Leon R.N. 05/07/21 12:21: Trisha was going to consider patient today, but she had not been able to get in touch with [facility]. This mattress spring encaser had spoken to patient, and he was open to either going to skilled or home with home health. This mattress spring encaser had also attempted to reach [facility], and they are closed today for 's Day. Would not be sure if [facility] would be they would authorize them as well. Patient is willing to go home today with home health. This mattress spring encaser left Thea at [facility] a message that the plan now is for patient to go home with [facility]. They are the only agency that goes to [place]. Called [facility] and spoke to Hoda. She indicated, they normally do not take L[facility]I claims. Stated, they can possibly make an exception, since they are the only agency that serves the [facility]. Will fax her over the referral. Will include the name and phone number of [facility] lathe set up person. Called Lisa Solis, and she will change orders for home with home health versus him going to care home. Will fax over referral, to include face sheet, H&P, orders. Will await a new DC Summary, and will include the phone number for [facility]. Addendum entered by Marina De Leon R.N. 05/07/21 09:03: Spoke to Lisa Solis, PAC, and she indicated that patient is medically stable for discharge. Updated her on situation, of attempting to get patient to [facility] , Trisha is reviewing. If he is not able to get approved from [facility], patient will need to go home with home health. Updated patient on this, and he is aware. Original Note: DCP Cont: Called Nitin at [facility] to follow up regarding L[facility] claim. He indicated, they have not worked with [facility] for a while, and not sure how long it would be for them to resubmit application. Called Trisha at [facility] , and she indicated they do work with L[facility]. Gave her Kimmie's phone number at [facility]. Having Trisha fax over clinical notes. P: DCP to continue to follow and work on either skilled, or home health. Marina De Leon, MAGDY/Chief Electrician
[2021-05-07] MEDS: DOCUSATE 100 MG CAPSULE PO (08:20)
[2021-05-07] MEDS: METHYLPHENIDATE 5 MG TABLET 30 MG PO ×2 (08:20→12:25)
[2021-05-07] MEDS: polyethylene glycoL 3350 17 GM POWD.PACK PO (08:20)
[2021-05-07] MEDS: diazePAM 5 MG TABLET PO ×2 (08:21→14:32)
--- NOTE | 2021-05-07 08:29 | CM.DPNOTE ---
Faxed referral packet per Tanisha to [facility] and received fax conf. Jada Burton CM Asst.
--- NOTE | 2021-05-07 08:47 | PM.DS.1 ---
History of Present Illness History of Present Illness Date Patient Seen: 05/07/21 Time Patient Seen: 08:47 Chief complaint: Low back pain s/p TLIF Narrative: The patient is complaining of moderate to severe low back pain. The patient has been on a fentanyl patch approximately 3 weeks prior to surgery, and he notes the oral Dilaudid is helping with his pain. He is concerned about going home because he lives in a trailer with his . His works and is unable to care for him home. He is also complaining of increased numbness in his left hand/fingers, which he experienced prior to surgery. He is complaining of bilateral thigh pain/spasms. He is also very concerned because he has not had a bowel movement yet. Discharge Providers Provider Date of admission: 05/04/21 08:27 Discharge Date: 05/07/21 Primary care physician: Steven Nolan MD Consults: 05/04/21 14:17 Consult to Occupational Therapy Evaluate & Treat Comment: Physician Instructions: Evaluate and treat Consult to Physical Therapy Evaluate & Treat Comment: Physician Instructions: Evaluate and Treat Discharge provider: Lisa Solis PA-C Summary Hospital Course Discharge Diagnosis: 1. L5-S1 spondylolisthesis 2. L5-S1 spinal stenosis Hospital Course: Date of procedure: 05/04/21 Time of procedure: 10:00 Procedure & Clinicians Procedure: 1. L5-S1 Postero-lateral and posterior interbody fusion 2. L5-S1 interbody cage placement. 3. L5-S1 decompressive laminectomy with bilateral facetecomies 4. L5-S1 Posterior non-segmental instrumentation 5. [place] of bone marrow from iliac crest 6. Utilization of microsurgical technique and operating microscope Same procedure as scheduled: Yes Indications: Patient has been having chronic back pain and worsening lumbar radiculopathy. Patient failed multiple conservative management with worsening pain weakness and numbness in her lower extremity.? Patient has been having difficulty performing activity of daily living.? After discussing risks benefits of treatment options, patient elected proceed with surgery. Surgeon: Gabriel Marcelino Robot Designer: Lisa Solis Click Yes if Unassisted: No Anesthesia Type: General Operative Notes Closure Type: primary Specimen(s): none sent Prosthetic devices, grafts, tissues, transplants, or devices: Globus revolve screws, Rise cage Estimated Blood Loss (mL): 50 Blood products transfused: none Status at Discharge Cognitive/behavioral status at discharge: oriented Functional status at discharge: uses cane/walker Overall status at discharge: patient is progressing back to baseline Exam Vital Signs (past 8 hours): - 05/07/21 01:22 Temperature 98.0 F Pulse Rate 75 Respiratory Rate 18 Blood Pressure 120/65 Pulse Oximetry 98 Oxygen Delivery Method Room Air Oxygen Flow Rate 0 Narrative Exam Narrative: 45-year-old male, somewhat restless in bed, no acute distress. Dressing is clean, dry, intact. Bilateral lower extremity motor functions are grossly intact. Sensation is grossly intact to light touch in bilateral lower extremities. Calves are soft, nontender to palpation Const General: anxious and disheveled [facility] Medical History ADHD Back injury (11/11/19) Chicken pox Chronic back pain Easy bruisability Foot pain Fractures Mandible fracture PTSD (post-traumatic stress disorder) Shoulder pain Spinal stenosis Spondylolisthesis Surgical History Cataract extraction status, left eye Hx of shoulder surgery Social History household members: spouse Smoking Status: Current every day smoker alcohol intake: former Discharge Assessment & Plan Assessment and Plan Assessment: Slow progress status post TLIF -poor pain management Plan of Treatment: -mobilize with PT. Limit bending, lifting, twisting. Weightbearing as tolerated with front wheel walker -continue with current pain regimen -DC to SNF today. The patient and his live in a trailer on [facility]. There are steps going into the trailer and also mild out front. His works and is unable to care for him. I also think that perhaps his mental health issues, including PTSD, are giving him poor overall coping mechanisms. Therefore, we will hopefully get him in to SNF today given his pain management issues and overall coping mechanisms. Otherwise he will have to discharge to his trailer with home health on [facility]. Discharge Plan Discharge Plan Patient Disposition: SNF Discharge orders & Medications Prescriptions: New bisacodyl 5 mg Tablet,Delayed Release (Dr/Ec) 10 mg PO BID PRN (Reason: Constipation) Qty: 30 RF: 0 docusate sodium 100 mg Capsule 100 mg PO BID PRN (Reason: Constipation from narcotic pain meds) Qty: 30 RF: 0 hydroxyzine pamoate 25 mg Capsule 50 mg PO Q4HR PRN (Reason: Pain/spasms/nausea) Qty: 60 RF: 0 polyethylene glycol 3350 17 gram Powder In Packet 17 g PO BID PRN (Reason: constipation) Qty: 30 RF: 0 hydromorphone 4 mg Tablet See Rx Instructions .ROUTE .COMPLEX PRN (Reason: Pain, Severe (7-10)) Qty: 42 RF: 0 Continued fentanyl 12 mcg/hr patch 72 hour 1 patch transdermal Q72H Qty: 5 RF: 0 prazosin 1 mg Capsule 4 mg PO BEDTIME RF: 0 diazepam 5 mg tablet 5 mg PO BID RF: 0 methylphenidate HCl 20 mg tablet 30 mg PO BID RF: 0 Discontinued hydrocodone-ibuprofen 7.5-200 mg Tablet 1 - 2 tab PO QID PRN (Reason: Pain) RF: 0 Follow up/Referrals: Gabriel Marcelino MD [Physician] - (10-14 days for postoperative visit) Steven Nolan MD [Primary Care Provider] - Diet/Activity/Treatments Diet: Diet as Tolerated and Regular Other treatments: Medications: -OTC Tylenol 500 mg 1 tablet every 4 hours as needed for pain/fever. Max 6 tablets per day. -Dilaudid 4 mg take 0.5-1 tablet every 4 hours as needed for moderate-severe pain (narcotic pain medication). -As needed medications: -Ducolax and /or MiraLax as needed for constipation from narcotic pain medications. -Pepcid AC as needed for stomach upset. -Vistaril (hydroxyine) 25mg 1-2 tabs every 4 hours as needed for spasms/pain/nausea. Dressing/Wound care: -Keep dressing in place until postoperative follow-up office visit. -Okay to shower. Keep wound out of direct water stream. Can use PressNSeal plastic wrap to protect from shower stream. No soaking or submerging until all the scabs fall off (approximately 6 weeks). -Please call the office if dressing becomes wet, soiled, or saturated. Activities: -Limit bending, lifting, twisting. -Weight-bearing as tolerated. Use front wheeled walker, and progress to cane when safe. -Continue with home exercises as directed by your physical therapist. -Ice your incision as needed for pain/inflammation/swelling. Protect your skin with a folded pillowcase. Follow-up: -Follow-up with your surgeon or PA in the office in 10-14 days after surgery. -Follow-up with your surgeon 6 weeks postoperatively. Call the office if you have chest pain, shortness of breath, significant swelling that will not resolve with elevating, fever over 101?, significantly worsening pain. [facility]: [phone] Skin/Wound/Dressing Care Report to your healthcare provider any signs of infection, such as:: chills, fever, night sweats, unusual drainage and unusual redness Special Rehabilitation Services Reason for rehabilitation: Post-operative therapy Rehab type: Physical therapy and Occupational therapy Visit Report/Discharge Packet Instructions: DI for Prescription Opioid Use, DI for Transforaminal Lumbar Interbody Fusion Stand Alone Forms: Surgery Discharge Discharge Data Primary Care Provider: Steven Nolan
--- NOTE | 2021-05-07 08:51 | PT.IPTN ---
Current Diagnoses Spondylolisthesis, lumbosacral region (05/04/21) Spinal stenosis, lumbar region without neurogenic claudication (05/04/21) Surgery Performed Operation Date: 05/04/21 09:15 Actual Procedures p L5-S1 TLIF - Gabriel Marcelino MD Physical Therapy Treatment Note M2 PT-IP Current Condition Start: 05/05/21 12:39 Freq: NEEDED Status: Active Protocol: Document 05/06/21 15:13 ER (Rec: 05/06/21 16:36 ER [id number]) Physical Therapy Current Condition Current Condition Evaluation Date 05/05/21 Treatment Diagnosis s/p L5S1 fusion/lami; difficulty in walking Onset Date 05/04/21 M3 PT-IP Subjective Start: 05/05/21 12:39 Freq: NEEDED Status: Active Protocol: Document 05/07/21 08:30 ER (Rec: 05/07/21 09:29 ER [email or web address]) Subjective Physical Therapy Visit Type Type Treatment Note Visit Start Time 08:30 Visit Stop Time 08:51 Total Visit Minutes 21 Notes JESUS Diaz lead tx, directly supervised and instructed by JAXON Wright throughout tx. Number of LEVEL DESIGNER Visits 3 Physical Therapy Visit Comments Patient Comments Pt. agreed to PT. Indcated pain at 8/10 initially, 10/10 with mobility. Indicated that he is having pain in L hand, when using walker and lingering after, palmar surface and especialy third digit. Feels like there are hooks digging into it. Patient Goals Reduce pain, and get home. Therapy Pain Assessment Pain When Pain Assessed At Rest Pain Present Pain Present Pain Reported Location Lower Abdomen Intensity 8 Scale Used Numeric (0 - 10) Description Acute,Chronic Pain Behaviors Facial Grimacing,Guarding, Holding Area,Restlessness, Wincing Pain Management Techniques Apply Cold,Distraction, Modification of Treatment,Re- positioning,Timing of Activity with Medications M4 PT-IP Mobility and Gait Start: 05/05/21 12:39 Freq: NEEDED Status: Active Protocol: Document 05/07/21 08:30 ER (Rec: 05/07/21 09:29 ER [email or web address]) PT-Bed Mobility Assessment Rolling Type of Rolling Log Rolling Level of Assist Standby Assistance Supine to Sit Supine to Sit Standby Assistance,1 Person Assistance Sit to Supine Sit to Supine Standby Assistance,1 Person Assistance Scooting Scooting to Edge of Bed Contact Guard Assistance PT-Transfer Assessment Sit to and From Stand Sit to and from Stand Contact Guard Assistance,1 Person Assistance,Use of Upper Extremities Equipment Transfer Assistive Device Gait Belt,Front Wheeled Walker Orthotic/Prosthetic Devices or Brace: No Transfers Transfer Destination Chair Transfer Technique Pt. ambulated using 4WW Transfer Ability Level of Assist Contact Guard Assistance, Minimal Assistance,1 Person Assistance,Use of Upper Extremities Comments Mobility Comments Pt. in supine when arrived. Pt . reported pain of 8/10 initially. Pt. log roll >sup> sit SBA. Sit>stand using FWW and UE support with CGA+1. Pt ambulated to toilet using FWW and CG-Dmitry+1, with cues for upright posture, shortened strides, breath mgmt of pain. Pt stand>sit to toilet using FWW with CGA+1. Pt. voided and passed gas but no BM. Pt sit> stand using 4WW and UE support on hand rails, with CGA+1. Pt . ambulated to sink. Was able to park 4WW, pivot to face sink unsupported. Braced against counter with hips and RUE support to reach for soap to wash hands, and brush teeth , all with CGA+1. Pt. ambulated into hallway (130' total) using 4WW and CGA-Dmitry+ 1 and cues for upright posture , close positioning to 4WW, breath mgmt of pain, and shortened even strides. Pt. paused twice due to pain. Pt. stand>sit on chair using 4WW and UE support with CGA+1. Pt scooted back in chair I. Pt. performed L medial nerve glides with increased pain. Cues to remain within pain- free ROM for exercise. Pt. left in chair with call light and all needs within arms reach. Updated communications board to reflect Dmitry+1 with FWW for ambulation and transfers. Gait Assessment Gait Gait Assistance Required: Contact Guard Assist,Minimum Assistance,1 Person Assist Distance (Feet) 130 Able to Maintain Weight Bearing Status Yes During Gait Assistive Devices Assistive Device Gait Belt,Front Wheeled Walker ,4 Wheeled Walker Orthotic/Prosthetic Devices or Brace: No Gait Deviations General Gait Pattern Antalgic,Decreased Stride Length,Decreased Feet Clearance,Step-to Gait Factors Limiting Gait Function Factors Limiting Gait Function Decreased Activity Tolerance, Decreased Strength,Limited Range of Motion,Pain,Poor Balance,Poor Safety Awareness, Respiratory Distress Comments Gait Comments See mobility. Stair Climbing Assessment Comments Stair Climbing Comments unsafe to assess at this time, will need to complete 6 stairs prior and for safety DC home when able. PT-Balance Assessment Sitting Balance and Reactions Static Sitting Balance Ability Fair Dynamic Sitting Balance Ability Fair Standing Balance and Reactions Static Standing Balance Ability Poor Dynamic Standing Balance Ability Poor Device Used FWW M5 PT-IP Objective Assessments Start: 05/05/21 12:39 Freq: NEEDED Status: Active Protocol: Document 05/05/21 10:40 AB (Rec: 05/05/21 12:55 AB [email or web address]) Orientation Orientation/Cognition Level of Alertness Alert Orientation Name,Age,Birthday,Date,Place, Situation Language Function Ability No Deficits Noted Safety Awareness Decreased Safety Awareness Gross Range of Motion Lower Extremity ROM Assessment Within Functional Limits Strength Lower Extremity Strength Assessment Bilaterally Impaired Hip 3/5 Knee 3+/5 Coordination Assessment Gross Coordination Gross Coordination WNL Muscle Tone Muscle Tone WNL Yes M6 PT-IP Treatment Start: 05/05/21 12:39 Freq: NEEDED Status: Active Protocol: Document 05/07/21 08:30 ER (Rec: 05/07/21 09:29 ER [email or web address]) Physical Therapy Treatment Education Education Provided Precautions,Safety Other Treatments Other Treatment Performed L UE medial nerve glides M7 PT-IP Assessment and Plan Start: 05/05/21 12:39 Freq: NEEDED Status: Active Protocol: Document 05/07/21 08:30 ER (Rec: 05/07/21 09:29 ER [email or web address]) PT Summary Assessment and Plan Potential Rehabilitation Potential Fair Status of Condition at Evaluation Evolving Summary Impairments Pain,ROM,Strength,Balance, Coordination,Sensation,Tone, Cognition,Bed Mobility, Transfers,Gait,Activity Tolerance Progress Towards Goals Slow Progress due to Pain,Slow Progress due to Activity Tolerance Assessment Summary Pt. continues to c/o pain 02/03 initially, increasing with mobility. Pt. SBA with mobility, CGA-Dmitry+1 with gait and FWW or 4WW. Pt. was able to use 4WW today for most of gait, with improved distance, but recommend FWW for safety. Pt. demonstrated improved steadiness in gait with CGA- Dmitry+1, but demonstrates oscillations of B knees in stationary standing, decreasing steadiness and safety. Pt. motivated and compliant with exercises, but has limited activity tolerance due to pain tolerance. Pt. needs to be more functional and independent than current level and will need SNF rehab to imrove overall strenght, functional mobility and independance. [ End ] Goals Bed Mobility Goal Standby Assistance Transfer Goal Standby Assistance,Front Wheeled Walker Gait Goal Standby Assistance,Front Wheel Walker Gait Distance 200 Other Goals up/down 6 steps L rail ascending SBA Days to Meet Goals 10 Frequency of Treatment Frequency Of Treatment Twice a Day Treatment Plan Physical Therapy Treatment Plan Bed Mobility Training,Transfer Training,Gait Training, Therapeutic Exercise,Balance Retraining,Post Op Education, Discharge Planning,Hot or Cold Pack,Neuromuscular Re-ed, Coordination Retraining,Manual Therapy Other Recommendations and Next Treatment transfers, increased distance Focus in gait using fWW, balance training. Precautions Lumbar Precautions Log Roll,No Twisting,Limit Bending,Lifting Restriction of 10 lbs,Gait Belt above Incisional Area Recommendations To Nursing Amount of Assist Needed 1 Person Assist Discharge Recommendations PT Discharge Recommendations SNF Rehab Equipment Needed for Home Before FWW if pt goes home Discharge Transportation Needs at Discharge Private Vehicle,Wheelchair/ Cabulance
--- NOTE | 2021-05-07 08:51 | PT.IPTN ---
Current Diagnoses Spondylolisthesis, lumbosacral region (05/04/21) Spinal stenosis, lumbar region without neurogenic claudication (05/04/21) Surgery Performed Operation Date: 05/04/21 09:15 Actual Procedures p L5-S1 TLIF - Gabriel Marcelino MD Physical Therapy Treatment Note M2 PT-IP Current Condition Start: 05/05/21 12:39 Freq: NEEDED Status: Active Protocol: Document 05/06/21 15:13 ER (Rec: 05/06/21 16:36 ER [id number]) Physical Therapy Current Condition Current Condition Evaluation Date 05/05/21 Treatment Diagnosis s/p L5S1 fusion/lami; difficulty in walking Onset Date 05/04/21 M3 PT-IP Subjective Start: 05/05/21 12:39 Freq: NEEDED Status: Active Protocol: Document 05/07/21 08:30 ER (Rec: 05/07/21 09:29 ER [email or web address]) Subjective Physical Therapy Visit Type Type Treatment Note Visit Start Time 08:30 Visit Stop Time 08:51 Total Visit Minutes 21 Notes JESUS Diaz lead tx, directly supervised and instructed by JAXON Wright throughout tx. Number of LABEL DRIER Visits 3 Physical Therapy Visit Comments Patient Comments Pt. agreed to PT. Indcated pain at 8/10 initially, 10/10 with mobility. Indicated that he is having pain in L hand, when using walker and lingering after, palmar surface and especialy third digit. Feels like there are hooks digging into it. Patient Goals Reduce pain, and get home. Therapy Pain Assessment Pain When Pain Assessed At Rest Pain Present Pain Present Pain Reported Location Lower Abdomen Intensity 8 Scale Used Numeric (0 - 10) Description Acute,Chronic Pain Behaviors Facial Grimacing,Guarding, Holding Area,Restlessness, Wincing Pain Management Techniques Apply Cold,Distraction, Modification of Treatment,Re- positioning,Timing of Activity with Medications M4 PT-IP Mobility and Gait Start: 05/05/21 12:39 Freq: NEEDED Status: Active Protocol: Document 05/07/21 08:30 ER (Rec: 05/07/21 09:29 ER [email or web address]) PT-Bed Mobility Assessment Rolling Type of Rolling Log Rolling Level of Assist Standby Assistance Supine to Sit Supine to Sit Standby Assistance,1 Person Assistance Sit to Supine Sit to Supine Standby Assistance,1 Person Assistance Scooting Scooting to Edge of Bed Contact Guard Assistance PT-Transfer Assessment Sit to and From Stand Sit to and from Stand Contact Guard Assistance,1 Person Assistance,Use of Upper Extremities Equipment Transfer Assistive Device Gait Belt,Front Wheeled Walker Orthotic/Prosthetic Devices or Brace: No Transfers Transfer Destination Chair Transfer Technique Pt. ambulated using 4WW Transfer Ability Level of Assist Contact Guard Assistance, Minimal Assistance,1 Person Assistance,Use of Upper Extremities Comments Mobility Comments Pt. in supine when arrived. Pt . reported pain of 8/10 initially. Pt. log roll >sup> sit SBA. Sit>stand using FWW and UE support with CGA+1. Pt ambulated to toilet using FWW and CG-Dmitry+1, with cues for upright posture, shortened strides, breath mgmt of pain. Pt stand>sit to toilet using FWW with CGA+1. Pt. voided and passed gas but no BM. Pt sit> stand using 4WW and UE support on hand rails, with CGA+1. Pt . ambulated to sink. Was able to park 4WW, pivot to face sink unsupported, wash hands, and brush teeth, all with CGA+ 1. Pt. ambulated into hallway (130' total) using 4WW and CGA -Dmitry+1 and cues for upright posture, close positioning to 4WW, breath mgmt of pain, and shortened even strides. Pt. paused twice due to pain. Pt. stand>sit on chair using 4WW and UE support with CGA+1. Pt scooted back in chair I. Pt. performed L medial nerve glides with increased pain. Cues to remain within pain- free ROM for exercise. Pt. left in chair with call light and all needs within arms reach. Updated communications board to reflect Dmitry+1 with FWW for ambulation and transfers. Gait Assessment Gait Gait Assistance Required: Contact Guard Assist,Minimum Assistance,1 Person Assist Distance (Feet) 130 Able to Maintain Weight Bearing Status Yes During Gait Assistive Devices Assistive Device Gait Belt,Front Wheeled Walker ,4 Wheeled Walker Orthotic/Prosthetic Devices or Brace: No Gait Deviations General Gait Pattern Antalgic,Decreased Stride Length,Decreased Feet Clearance,Step-to Gait Factors Limiting Gait Function Factors Limiting Gait Function Decreased Activity Tolerance, Decreased Strength,Limited Range of Motion,Pain,Poor Balance,Poor Safety Awareness, Respiratory Distress Comments Gait Comments See mobility. Stair Climbing Assessment Comments Stair Climbing Comments unsafe to assess at this time, will need to complete 6 stairs prior and for safety DC home when able. PT-Balance Assessment Sitting Balance and Reactions Static Sitting Balance Ability Fair Dynamic Sitting Balance Ability Fair Standing Balance and Reactions Static Standing Balance Ability Poor Dynamic Standing Balance Ability Poor Device Used FWW M5 PT-IP Objective Assessments Start: 05/05/21 12:39 Freq: NEEDED Status: Active Protocol: Document 05/05/21 10:40 AB (Rec: 05/05/21 12:55 AB [email or web address]) Orientation Orientation/Cognition Level of Alertness Alert Orientation Name,Age,Birthday,Date,Place, Situation Language Function Ability No Deficits Noted Safety Awareness Decreased Safety Awareness Gross Range of Motion Lower Extremity ROM Assessment Within Functional Limits Strength Lower Extremity Strength Assessment Bilaterally Impaired Hip 3/5 Knee 3+/5 Coordination Assessment Gross Coordination Gross Coordination WNL Muscle Tone Muscle Tone WNL Yes M6 PT-IP Treatment Start: 05/05/21 12:39 Freq: NEEDED Status: Active Protocol: Document 05/07/21 08:30 ER (Rec: 05/07/21 09:29 ER [email or web address]) Physical Therapy Treatment Education Education Provided Precautions,Safety M7 PT-IP Assessment and Plan Start: 05/05/21 12:39 Freq: NEEDED Status: Active Protocol: Document 05/07/21 08:30 ER (Rec: 05/07/21 09:29 ER [email or web address]) PT Summary Assessment and Plan Potential Rehabilitation Potential Fair Status of Condition at Evaluation Evolving Summary Impairments Pain,ROM,Strength,Balance, Coordination,Sensation,Tone, Cognition,Bed Mobility, Transfers,Gait,Activity Tolerance Progress Towards Goals Slow Progress due to Pain,Slow Progress due to Activity Tolerance Assessment Summary Pt. continues to c/o pain 02/03 initially, increasing with mobility. Pt. SBA with mobility, CGA-Dmitry+1 with gait and FWW or 4WW. Pt. was able to use 4WW today for most of gait, with improved distance, but recommend FWW for safety. Pt. motivated and compliant with exercises, but has limited activity tolerance due to pain tolerance. Pt. needs to be more functional and independent than current level and will need SNF rehab to imrove overall strenght, functional mobility and independance. [ End ] Goals Bed Mobility Goal Standby Assistance Transfer Goal Standby Assistance,Front Wheeled Walker Gait Goal Standby Assistance,Front Wheel Walker Gait Distance 200 Other Goals up/down 6 steps L rail ascending SBA Days to Meet Goals 10 Frequency of Treatment Frequency Of Treatment Twice a Day Treatment Plan Physical Therapy Treatment Plan Bed Mobility Training,Transfer Training,Gait Training, Therapeutic Exercise,Balance Retraining,Post Op Education, Discharge Planning,Hot or Cold Pack,Neuromuscular Re-ed, Coordination Retraining,Manual Therapy Other Recommendations and Next Treatment bed mob, transfers, gait using Focus fWW, unsafe for 4WW at this time. Precautions Lumbar Precautions Log Roll,No Twisting,Limit Bending,Lifting Restriction of 10 lbs,Gait Belt above Incisional Area Recommendations To Nursing Amount of Assist Needed 1 Person Assist Discharge Recommendations PT Discharge Recommendations SNF Rehab Equipment Needed for Home Before FWW if pt goes home Discharge Transportation Needs at Discharge Private Vehicle,Wheelchair/ Cabulance
[2021-05-07] MEDS: HYDROMORPHONE 4 MG TABLET 2 MG PO ×2 (10:57→14:31)
[2021-05-07 11:10] LABS: COVID19 -Nasal RAPID Negative (Negative)
[2021-05-07 12:28] VITALS: BP 134/80; PULSE 99; RESP 16; TEMP 36.9; O2SAT 97
[2021-05-07] MEDS: FLEETS ENEMA 1 EACH PR (13:14)
--- NOTE | 2021-05-07 15:03 | PT.IPTN ---
Current Diagnoses Spondylolisthesis, lumbosacral region (05/04/21) Spinal stenosis, lumbar region without neurogenic claudication (05/04/21) Surgery Performed Operation Date: 05/04/21 09:15 Actual Procedures p L5-S1 TLIF - Gabriel Marcelino MD Physical Therapy Treatment Note M2 PT-IP Current Condition Start: 05/05/21 12:39 Freq: NEEDED Status: Active Protocol: Document 05/07/21 15:12 SP (Rec: 05/07/21 15:53 SP [id number]) Physical Therapy Current Condition Current Condition Evaluation Date 05/05/21 Treatment Diagnosis s/p L5S1 fusion/lami; difficulty in walking Onset Date 05/04/21 M3 PT-IP Subjective Start: 05/05/21 12:39 Freq: NEEDED Status: Active Protocol: Document 05/07/21 15:12 SP (Rec: 05/07/21 15:53 SP [id number]) Subjective Physical Therapy Visit Type Type Treatment Note Visit Start Time 14:44 Visit Stop Time 15:03 Total Visit Minutes 19 Notes JESUS Diaz provided assist as needed for mobility under direct instruction and supervision of JAOXN Wright throughout tx. Number of AERONAUTICAL INSPECTOR Visits 4 Physical Therapy Visit Comments Patient Comments Pt agreeable to working with therapy, I am headed home later this afternoon. Patient Goals Pain reduction and home with to assist him. Wanting therapy to come to house to help get stronger on his feet. Therapy Pain Assessment Pain When Pain Assessed At Rest Pain Present Pain Present Pain Reported Location back Intensity 8 Scale Used with mobility. Description Aching,Burning,Shooting, Tingling,With Movement Pain Behaviors Facial Grimacing,Guarding, Holding Area,Restlessness, Wincing Pain Management Techniques Apply Cold,Distraction, Modification of Treatment,Re- positioning,Timing of Activity with Medications M4 PT-IP Mobility and Gait Start: 05/05/21 12:39 Freq: NEEDED Status: Active Protocol: Document 05/07/21 15:12 SP (Rec: 05/07/21 15:53 SP [id number]) PT-Bed Mobility Assessment Rolling Type of Rolling Log Rolling Level of Assist Standby Assistance Supine to Sit Supine to Sit Standby Assistance Scooting Scooting to Edge of Bed Independent PT-Transfer Assessment Sit to and From Stand Sit to and from Stand Contact Guard Assistance,Use of Upper Extremities Equipment Transfer Assistive Device Gait Belt,4 Wheeled Walker Orthotic/Prosthetic Devices or Brace: No Transfers Transfer Destination Chair,Wheelchair Transfer Technique Pt. ambulated using 4WW Transfer Ability Level of Assist Contact Guard Assistance,Use of Upper Extremities Comments Mobility Comments Pt supine in bed when arrived, completed LR L> sitting with UE push on bed SBA- Mod I. Sit >stand CGA with good 4WW brake mgt prior to mobility. Cues for pushing from bed and quad facilitation to complete full standing, CGA. Pt able to ambulate further distance into hallway 50ft using FWW, stable receiprocal stepping with moderate UE WB on 4WW with good brake squeeze as needed for pacing control, improved L knee extension stability during locomotion. Pt tired quickly, seated rest in w/c 50 ft CGA w/c follow due to decreased strength and endurance. SBA stand>sit with good UE reaching and slow descent. Pt wheeled to stairs. Sit>stand CGA with effort noted for LLE extension UE support on chair/ locked 4WW proceeded to stairs, pivot 4WW locked at side, ascend/ descend 3 stairs x2 sets L HR and SPC on R, occasional cues for lead R stronger LE step to patterning with SPC advanced step ascend. Noted unsteady LLE cued for quad facilitation and CGA support for safety during RLE advancement, did not buckle. Cues for leading with LLE descending step to patterning for safety, good patterning SPC advance step both directions while mainitaining spinal precautions. Assessed short distance gait with SPC toward PLOF, unsteady LLE, Min A for trunk stability wt shift support during RLE advancement , 20 ft w/c follow due to decreased strength and tiring quickly required sit rest. Pt returned seated in w/c and wheeled back to room. Pt used 4WW sit>stand, gait to chair, SPT and proper brake mgt with good reaching slow sit into chair. Pt had call light and all needs in reach. AERONAUTICAL INSPECTOR discussed with pt recommending use of 4WW in home (RV) for BUe support, unsafe using SPC and seated rest with stationary standing activitites for safety with unsteady LLE and risk of buckling. AERONAUTICAL INSPECTOR suggested be with him for safety support at this time knowing LLE not strong and unsteady during standing and at times mid stance use of 4WW. AERONAUTICAL INSPECTOR recommending HHPT for continued skilled PT for LLE and trunk stability strengthtening toward functional independence at home. Gait Assessment Gait Gait Assistance Required: Contact Guard Assist Distance (Feet) 50 Able to Maintain Weight Bearing Status Yes During Gait Assistive Devices Assistive Device Gait Belt,Straight Cane,4 Wheeled Walker Orthotic/Prosthetic Devices or Brace: No Gait Deviations General Gait Pattern Antalgic,Decreased Stride Length,Decreased Feet Clearance,Step-to Gait Factors Limiting Gait Function Factors Limiting Gait Function Decreased Activity Tolerance, Decreased Strength,Limited Range of Motion,Pain,Poor Balance,Poor Safety Awareness, Respiratory Distress Comments Gait Comments Cued L quad facilitation during midstance gait phase due to unstable. Stair Climbing Assessment Evaluation Level of Assist On Stairs Contact Guard Assistance,1 Person Assistance Devices Stair Climbing Assistive Devices Straight Cane,Left Railing Technique/Endurance Stair Climbing Direction Ascend and Descend Stair Climbing Technique Step to Step Number of Steps Climbed 3 Stair Climbing Set # Repetitions (reps) 2 Comments Stair Climbing Comments Step to patterning with cuing for lead RLE stronger leg ascend and LLE lead descend due to LLE quad weakness and risk for buckling, CGA x1 required for trunk stability safety at this time. PT-Balance Assessment Sitting Balance and Reactions Static Sitting Balance Ability Good Dynamic Sitting Balance Ability Fair Standing Balance and Reactions Static Standing Balance Ability Poor Dynamic Standing Balance Ability Fair Device Used FWW M5 PT-IP Objective Assessments Start: 05/05/21 12:39 Freq: NEEDED Status: Active Protocol: Document 05/05/21 10:40 AB (Rec: 05/05/21 12:55 AB [id number]) Orientation Orientation/Cognition Level of Alertness Alert Orientation Name,Age,Birthday,Date,Place, Situation Language Function Ability No Deficits Noted Safety Awareness Decreased Safety Awareness Gross Range of Motion Lower Extremity ROM Assessment Within Functional Limits Strength Lower Extremity Strength Assessment Bilaterally Impaired Hip 3/5 Knee 3+/5 Coordination Assessment Gross Coordination Gross Coordination WNL Muscle Tone Muscle Tone WNL Yes M6 PT-IP Treatment Start: 05/05/21 12:39 Freq: NEEDED Status: Active Protocol: Document 05/07/21 15:12 SP (Rec: 05/07/21 15:53 SP [id number]) Physical Therapy Treatment Education Education Provided Precautions,Safety M7 PT-IP Assessment and Plan Start: 05/05/21 12:39 Freq: NEEDED Status: Active Protocol: Document 05/07/21 15:12 SP (Rec: 05/07/21 15:53 SP [id number]) PT Summary Assessment and Plan Potential Rehabilitation Potential Fair Status of Condition at Evaluation Evolving Summary Impairments Pain,ROM,Strength,Balance, Coordination,Sensation,Tone, Cognition,Bed Mobility, Transfers,Gait,Activity Tolerance Progress Towards Goals Slow Progress due to Pain,Slow Progress due to Activity Tolerance Assessment Summary Pt SBA-Mod I bed mobility, CGA for transfers and gait w/ 4WW , Min A for gait with SPC due to LLE weakness and unstable during midstance stationary more than dynamic mobiltiy. Recommending HHPT to progress skilled strengthening. Pt is ok to return home with his to assist him when medically cleared. Goals Bed Mobility Goal Standby Assistance Transfer Goal Standby Assistance,Front Wheeled Walker Gait Goal Standby Assistance,Front Wheel Walker Gait Distance 200 Other Goals up/down 6 steps L rail ascending SBA Days to Meet Goals 10 Frequency of Treatment Frequency Of Treatment Twice a Day Treatment Plan Physical Therapy Treatment Plan Bed Mobility Training,Transfer Training,Gait Training, Therapeutic Exercise,Balance Retraining,Post Op Education, Discharge Planning,Hot or Cold Pack,Neuromuscular Re-ed, Coordination Retraining,Manual Therapy Other Recommendations and Next Treatment transfers, increased distance Focus in gait using fWW, balance training, LE exercises in standing for approximation strengthening. Precautions Lumbar Precautions Log Roll,No Twisting,Limit Bending,Lifting Restriction of 10 lbs,Gait Belt above Incisional Area Recommendations To Nursing Amount of Assist Needed 1 Person Assist Discharge Recommendations PT Discharge Recommendations SNF Rehab Equipment Needed for Home Before Ok to use 4WW is borrowing at Discharge this time. Transportation Needs at Discharge Private Vehicle
[2021-05-07] MEDS: hydrOXYzine pamoate 25 MG CAPSULE 50 MG PO (16:35)
[2021-05-07] MEDS: fentaNYL 12 MCG/PATCH TOP (16:35)
--- NOTE | 2021-05-07 16:52 | PC.NURSE ---
Pt dc'd to home per provider order. Provided d/c packet, educational material. Provided verbal education regarding post op care, med regimen, when to seek emergency medical treatment. Pt verbalizes understanding. All belongings gathered and sent with pt for d/c home. Pt provided written Rx and priority boarding pass. Pt transferred to w/c independently was escorted to POV in no distress. Pt dc'd at 1655.
== END 2021-05-07 16:55 | disposition home or self-care (01) | DRG 304 ==
PROVIDERS: Physician Assistant; Admitting Provider Orthopaedic Surgery Orthopaedic Surgery of the Spine; PCP Family Medicine; Referring Provider Physical Medicine & Rehabilitation; Visit Provider Orthopaedic Surgery Orthopaedic Surgery of the Spine
PROC: 0SG30AJ Fusion of Lumbosacral Joint with Interbody Fusion Device, Posterior Approach, Anterior Column, Open Approach (ICD-10-PCS; principal; 2021-05-04 09:15)
DX: M43.17 Spondylolisthesis, lumbosacral region (principal); M48.07 Spinal stenosis, lumbosacral region; M54.17 Radiculopathy, lumbosacral region; G89.18 Other acute postprocedural pain; F43.10 Post-traumatic stress disorder, unspecified; F17.200 Nicotine dependence, unspecified, uncomplicated; Z20.822 Contact with and (suspected) exposure to COVID-19; Z79.891 Long term (current) use of opiate analgesic
CPT/HCPCS: 72100; 76000; 87635; 97116; 97162; 97165; 97530; 97535; C1776; C9803; C9290; J0171; J0330; J0690; J1100; J1170; J2405; J2704; J3010

== ENCOUNTER 2021-06-09 19:06 | Emergency (ER) | payer MEDICARE, MEDICAID, SELFPAY ==
[2021-05-15 09:01] VITALS: BMI 23.6
--- NOTE | 2021-06-09 19:14 | DI.US.S_ITS ---
PROCEDURE: US SCROTUM INDICATIONS: LEFT SCROTAL PAIN TECHNIQUE: Real-time scanning was performed of the scrotum and testicles, with image documentation. Color and pulse Doppler interrogation was performed of both testicles. COMPARISON: None. FINDINGS: Right: Testicle is normal in size at 3.5 x 2.1 x 2.2 cm, and homogenous in echotexture. Epididymis is normal in overall size and morphology. No hydrocele or varicoceles. Overlying scrotal skin is normal in thickness. Left: Testicle is normal in size at 3.4 x 2.2 x 2.1 cm cm, and homogeneous in echotexture. Epididymis is normal in overall size and heterogeneous in echotexture. There is a 0.5 cm cyst in the left epididymal head. Small hydrocele. No varicoceles. Overlying scrotal skin is normal in thickness. Doppler: Color and pulse Doppler demonstrate normal and symmetric arterial flow in both testicles. There is increased vascularity to the left epididymis. IMPRESSION: 1. The ultrasound findings are compatible with left epididymitis. 2. Normal testes bilaterally. No ultrasound findings to suggest testicular torsion or testicular mass. 3. A 0.5 cm epididymal cyst or spermatocele in the epididymal head. 4. Small left hydrocele. Dictated by: Gilberto Saldaña M.D. on 06/09/2021 at 20:49 Approved by: Gilberto Saldaña M.D. on 06/09/2021 at 20:53
[2021-06-09 19:15] VITALS: BP 153/80; PULSE 94; RESP 14; TEMP 36.6; O2SAT 99; BMI 24.9
--- NOTE | 2021-06-09 20:14 | ED_ITS ---
HPI - Male Genitourinary General Chief complaint: Urogenital-Male Stated complaint: swollen testical with lump Time Seen by Provider: 06/09/21 20:47 Source: patient Mode of arrival: Ambulatory History of Present Illness HPI Narrative: Patient is a 45-year-old male with chronic back pain recent surgery in April presenting today with sudden onset left testicular pain. He says that it started suddenly last night he has had some body aches fever and chills and can not get warm. It is quite tender to touch and feels like there is a lump. He denies any injury or trauma. He also complains of some painful frequent urination. Related Data Home Medications Medication Instructions Recorded Confirmed diazepam 5 mg tablet 5 mg PO BID 04/20/21 05/15/21 methylphenidate HCl 20 mg tablet 30 mg PO BID tab 04/20/21 05/15/21 prazosin 1 mg capsule 4 mg PO BEDTIME 04/27/21 05/15/21 oxycodone 5 mg tablet 5 mg PO BID PRN 06/04/21 06/04/21 Previous Rx's Medication Instructions Recorded bisacodyl 5 mg tablet,delayed 10 mg PO BID PRN #30 tab 05/07/21 release docusate sodium 100 mg capsule 100 mg PO BID PRN #30 cap 05/07/21 hydroxyzine pamoate 25 mg capsule 50 mg PO Q4HR PRN #60 cap 05/07/21 polyethylene glycol 3350 17 gram 17 g PO BID PRN #30 ea 05/07/21 oral powder packet hydrocodone 7.5 mg-ibuprofen 200 1 tab PO QID PRN #120 tab 05/16/21 mg tablet fentanyl 12 mcg/hr transdermal 1 patch TRANSDERMAL Q72H #10 ea 06/04/21 patch levofloxacin 500 mg tablet 500 mg PO DAILY #10 tab 06/09/21 Allergies Allergy/AdvReac Type Severity Reaction Status Date / Time acetaminophen Allergy Severe Itching, Verified 06/09/21 19:15 red spots, vomiting olanzapine [From Zyprexa] AdvReac Severe Anxiety Verified 06/09/21 19:15 trazodone AdvReac Severe Priapism Verified 06/09/21 19:15 Review of Systems Review of Systems Narrative: GENERAL: See HPI HEENT: Denies sinus pain, ear pain, sore throat, difficulty swallowing, neck pain RESPIRATORY: Denies dyspnea, cough, wheezing, hemoptysis, sputum. CARDIOVASCULAR: Denies chest pain, palpitations, orthopnea, edema GASTROINTESTINAL: Denies nausea, vomiting, abdominal pain, diarrhea, constipation, melena. : See HPI MUSCULOSKELETAL: Denies weakness, joint pain, or bony pain SKIN: No rash, no erythema, no pruritus NEUROLOGIC: Denies weakness, dizziness, headache, numbness, change in speech, confusion PSYCHIATRIC: No concerning psychosocial issues. 12 point review of systems is negative except for those stated above and HPI Patient History Medical History ADHD Back injury (11/11/19) Chicken pox Chronic back pain Easy bruisability Foot pain Fractures Mandible fracture PTSD (post-traumatic stress disorder) Shoulder pain Spinal stenosis Spondylolisthesis Surgical History Cataract extraction status, left eye Hx of shoulder surgery Social History household members: spouse Smoking Status: Current every day smoker alcohol intake: former Smoking Status: Current every day smoker tobacco type: cigarettes and smokeless tobacco alcohol intake frequency: other Substance Use Type: marijuana Exam Initial Vital Signs Initial Vital Signs: Vital Signs Temperature 97.9 F 06/09/21 19:15 Pulse Rate 94 H 06/09/21 19:15 Respiratory Rate 14 06/09/21 19:15 Blood Pressure 153/80 H 06/09/21 19:15 Pulse Oximetry 99 06/09/21 19:15 GENERAL: Well-appearing, well-nourished and in no acute distress. CARDIOVASCULAR: peripheral pulses in tact, cap refill <2 sec RESPIRATORY: No respiratory distress, speaks in full sentences without difficulty ABDOMEN: Soft, nontender, no guarding or rebound : Nurse Criselda present for exam. Left testicle is tender minimal erythema no hernia present bilaterally, no penile discharge EXTREMITIES: Normal range of motion, no clubbing or edema. Neurovascularly intact NEUROLOGICAL: Cranial nerves II through XII grossly intact. Normal gait and speech. SKIN: Warm, dry, no petechiae, no rashes or lesions. Incision site on back has healed no evidence of infection Course Orders Ordered: ED Orders 06/09/21 19:14 US scrotum Stat 12/14/21 21:45 Chlamydia Gonorrhea PCR -URINE Stat Discontinued Medications Ceftriaxone Sodium (Ceftriaxone 1,000 Mg Vial) 500 mg IM NOW ONE Stop: 06/09/21 21:45 Last Admin: 06/09/21 22:00 Dose: 500 mg Documented by: ANA Lidocaine HCl (Lidocaine 1% 20 Ml) 2.1 ml INJ NOW ONE Stop: 06/09/21 21:45 Last Admin: 06/09/21 21:59 Dose: Not Given Documented by: ANA Vital Signs Vital signs: Vital Signs - 8 hr 06/09/21 19:15 06/09/21 22:06 Temperature 97.9 F Pulse Rate 94 H 88 Respiratory Rate 14 16 Blood Pressure 153/80 H 148/78 H Pulse Oximetry 99 97 MDM - Male Genitourinary Lab Data Labs: Lab Results 06/09/21 Range/Units 21:45 Ur Chlamydia DNA (PCR) Not detected N gonorrhoeae DNA (PCR) Not detected Urine Dip Bedside Urine Glucose Negative Bedside Urine Bilirubin - Negative Bedside Urine Ketone - Negative Urine Specific [place] 1.015 Bedside Urine Occult Blood - Negative Bedside Urine pH 6.0 Bedside Urine Protein - Negative Bedside Urine Urobilinogen - Negative Bedside Urine Nitrite - Negative Bedside Urine Leukocytes - Negative Esterase Imaging Data US Scrotum: Radiologist's Impression: PROCEDURE:? US SCROTUM ? INDICATIONS:? LEFT SCROTAL PAIN ? TECHNIQUE:? Real-time scanning was performed of the scrotum and testicles, with image documentation.? Color and pulse Doppler interrogation was performed of both testicles.? ? COMPARISON:? None. ? FINDINGS:? ? Right:? Testicle is normal in size at 3.5 x 2.1 x 2.2 cm, and homogenous in echotexture.? Epididymis is normal in overall size and morphology.? No hydrocele or varicoceles.? Overlying scrotal skin is normal in thickness.? ? Left:? Testicle is normal in size at 3.4 x 2.2 x 2.1 cm cm, and homogeneous in echotexture.? Epididymis is normal in overall size and heterogeneous in echotexture.? There is a 0.5 cm cyst in the left epididymal head.? Small hydrocele.? No varicoceles.? Overlying scrotal skin is normal in thickness.? ? Doppler:? Color and pulse Doppler demonstrate normal and symmetric arterial flow in both testicles.? There is increased vascularity to the left epididymis. ? IMPRESSION:? ? 1. The ultrasound findings are compatible with left epididymitis. 2. Normal testes bilaterally.? No ultrasound findings to suggest testicular torsion or testicular mass. 3. A 0.5 cm epididymal cyst or spermatocele in the epididymal head.? 4. Small left hydrocele.? ? ? Dictated by: Gilberto Saldaña M.D. on 06/09/2021 at 20:49 ? [facility] Narrative Medical decision making narrative: Patient states he is in a monogamous relationship. Gonorrhea and chlamydia are negative. Ultrasound does show left epididymitis he is given Rocephin in the emergency department and Levaquin to cover enteric organisms. Discharge Plan Departure Patient Disposition: Home Clinical Impression: Epididymitis Instructions: Epididymitis Activity Restrictions/Additional Instructions: *You have been diagnosed with epididymitis *What to do: At this time you have an infection in your left testicle. This should resolve with antibiotics. *Continue to take medications as directed Levaquin 500 mg once a day for 10 days--> SENT TO [facility] *Follow up with your primary care provider in 2-3 days *Return to ER if you should have increasing redness, fever, pain or any new, worsening or concerning symptoms Prescriptions: New levofloxacin 500 mg tablet 500 mg PO DAILY Qty: 10 0RF No Action hydrocodone-ibuprofen 7.5-200 mg tablet 1 tab PO QID PRN (Reason: Pain) Qty: 120 0RF prazosin 1 mg Capsule 4 mg PO BEDTIME 0RF bisacodyl 5 mg Tablet,Delayed Release (Dr/Ec) 10 mg PO BID PRN (Reason: Constipation) Qty: 30 0RF docusate sodium 100 mg Capsule 100 mg PO BID PRN (Reason: Constipation from narcotic pain meds) Qty: 30 0RF hydroxyzine pamoate 25 mg Capsule 50 mg PO Q4HR PRN (Reason: Pain/spasms/nausea) Qty: 60 0RF polyethylene glycol 3350 17 gram Powder In Packet 17 g PO BID PRN (Reason: constipation) Qty: 30 0RF oxycodone 5 mg tablet 5 mg PO BID PRN0RF Rx Instructions: Was prescribed by surgeon, Qty of 60 fentanyl 12 mcg/hr patch 72 hour 1 patch transdermal Q72H Qty: 10 0RF diazepam 5 mg tablet 5 mg PO BID 0RF methylphenidate HCl 20 mg tablet 30 mg PO BID 0RF Referrals: Geovanni Otero, [Primary Care Provider] -
[2021-06-09] MEDS: cefTRIAXone 1,000 MG VIAL 500 MG IM (22:00)
[2021-06-09] MEDS: LIDOCAINE 1% (PF) 2 ML (22:00)
[2021-06-09 22:06] VITALS: BP 148/78; PULSE 88; RESP 16; O2SAT 97
[2021-06-09 23:38] LABS: Urine N gonorrhoeae NOT DETECTED
[2021-06-09 23:41] LABS: Urine Chlamydia NOT DETECTED
== END 2021-06-09 22:06 | disposition home or self-care (01) ==
PROVIDERS: Emergency Provider Emergency Medicine; PCP Family Medicine
DX: N45.1 Epididymitis (principal); F17.210 Nicotine dependence, cigarettes, uncomplicated; F17.290 Nicotine dependence, other tobacco product, uncomplicated
CPT/HCPCS: 76870; 81003; 87491; 87591; 96372; 99283; 99284; J0696

== ENCOUNTER 2021-10-09 08:52 | Emergency (ER) | payer MEDICARE, MEDICAID, SELFPAY ==
[2021-05-15 09:01] VITALS: BMI 23.6
[2021-10-09 09:02] VITALS: PULSE 89; O2SAT 98
--- NOTE | 2021-10-09 09:09 | ED_ITS ---
HPI - General Adult General Chief complaint: Urogenital-Male Stated complaint: pain in groin 2 days Time Seen by Provider: 10/09/21 08:59 History of Present Illness HPI narrative: 45-year-old gentleman with significant back injury 2 years ago has not worked sense is currently on fentanyl patch and oxycodone a still has some cervical spine issues from the same injury presents with left testicular pain that is been present for 4 months and continuing to be painful. 48 hours ago he galdino cribes retrograde ejaculation which, he in addition to the 4 months of waxing and waning pain, is the concern that prompted today's visit. He describes no significant fevers, vomiting, abdominal pain, diarrhea. He notes that he is relatively constipated with his chronic narcotic use despite using stool softeners. He has had no chest pain, palpitations or coughing. In May he did have similar findings an ultrasound revealed left epididymitis with negative STI testing. primary care doctor had discussed urology referral however he is her no further follow-up regarding mass. Related Data Home Medications Medication Instructions Recorded Confirmed diazepam 5 mg tablet 5 mg PO BID 04/20/21 09/03/21 methylphenidate HCl 20 mg tablet 30 mg PO BID tab 04/20/21 09/03/21 prazosin 1 mg capsule 4 mg PO BEDTIME 04/27/21 09/03/21 Previous Rx's Medication Instructions Recorded fentanyl 12 mcg/hr transdermal 1 patch TRANSDERMAL Q72H #10 ea 10/07/21 patch oxycodone 5 mg tablet 5 mg PO BEDTIME PRN #30 tab 10/07/21 Allergies Allergy/AdvReac Type Severity Reaction Status Date / Time acetaminophen Allergy Severe Itching, Verified 09/03/21 13:10 red spots, vomiting olanzapine [From Zyprexa] AdvReac Severe Anxiety Verified 09/03/21 13:10 trazodone AdvReac Severe Priapism Verified 09/03/21 13:10 Review of Systems Review of Systems Narrative: Remainder of complete review of systems is otherwise unremarkable except for that included in the HPI. Patient History Medical History ADHD Back injury (11/11/19) Chicken pox Chronic back pain Concussion Easy bruisability Foot pain Fractures Hydrocele Mandible fracture PTSD (post-traumatic stress disorder) Shoulder pain Spinal stenosis Spondylolisthesis Surgical History Cataract extraction status, left eye Hx of shoulder surgery Social History household members: spouse Smoking Status: Current every day smoker (4-5 cigarettes per day ) alcohol intake: former Smoking Status: Current every day smoker (4-5 cigarettes per day ) tobacco type: cigarettes and smokeless tobacco alcohol intake frequency: other Substance Use Type: marijuana Exam Initial Vital Signs Initial Vital Signs: Vital Signs Temperature 98.4 F 10/09/21 09:13 Pulse Rate 91 H 10/09/21 09:13 Respiratory Rate 18 10/09/21 09:13 Blood Pressure 183/90 H 10/09/21 09:13 Pulse Oximetry 97 10/09/21 09:13 General: Alert appropriate in no acute distress Respiratory: Able to speak in full sentences, no obvious respiratory distress Abdomen: Soft nontender nondistended General exam: Normal external genitalia, no rashes, warmth, or redness. He has some minor tenderness to the left epididymis without associated scrotal changes. There is no tenderness to the perineal body. Skin: No obvious rashes, warm and dry Neurologic: Grossly intact no obvious asymmetries or abnormalities Psych: appropriate insight and affect, cooperative Course Orders Ordered: ED Orders 10/09/21 09:15 US scrotum Stat Vital Signs Vital signs: Vital Signs - 8 hr 10/09/21 09:13 Temperature 98.4 F Pulse Rate 91 H Respiratory Rate 18 Blood Pressure 183/90 H Pulse Oximetry 97 Medical Decision Making Imaging Data US scrotum: Radiologist's Impression: per tech: good flow to both testes, small epididimal cyst but no overt epididimitis MDM Narrative Medical decision making narrative: 45-year-old gentleman 2 months of left testicular pain and now it sounds like he is having episodes of partial retrograde ejaculation. There is no evidence of infection, acute epididymitis, torsion, STIs. He does have chronic constipation from his chronic pain management opioid schedule. Talked about increasing MiraLax to see if not having to strain with bowel movements might be helpful. Did arrange for an outpatient follow-up appointment with Urology to continue to pursue definitive diagnosis. With all of this is reviewed with patient, questions are answered and he is safe for home discharge Discharge Plan Departure Patient Disposition: Home Clinical Impression: Testicular discomfort Constipation Qualifiers: Constipation type: drug induced constipation Qualified Code(s): K59.03 - Drug induced constipation Instructions: Epididymal Cyst Activity Restrictions/Additional Instructions: Thank you for coming in today I did not find any evidence of infection, abnormal blood flow, cancer or other life threatening issues. Unfortunately, I also do not have a full explanation for your pain. I do note that chronic constipation and straining can certainly exacerbate testicular p ain. Would recommend that you increase your MiraLax daily to would ever dose is needed to have a regular daily soft bowel movement. You cannot overdose on MiraLax I have scheduled a Urology Apt with Dr. Dow at [facility]. The appointment is November 02 at 1:45 a.m. the address is [address] [place] [address] and the phone #[phone] Prescriptions: No Action fentanyl 12 mcg/hr patch 72 hour 1 patch transdermal Q72H Qty: 10 0RF oxycodone 5 mg tablet 5 mg PO BEDTIME PRN (Reason: pain) Qty: 30 0RF prazosin 1 mg Capsule 4 mg PO BEDTIME 0RF diazepam 5 mg tablet 5 mg PO BID 0RF methylphenidate HCl 20 mg tablet 30 mg PO BID 0RF Referrals: Geovanni Otero DO [Primary Care Provider] - Steven Dow MD [Physician] -
[2021-10-09 09:13] VITALS: BP 183/90; PULSE 91; RESP 18; TEMP 36.9; O2SAT 97; BMI 24.3
--- NOTE | 2021-10-09 09:15 | DI.US.S_ITS ---
PROCEDURE: US SCROTUM INDICATIONS: LEFT TESTICULAR PAIN TECHNIQUE: Real-time scanning was performed of the scrotum and testicles, with image documentation. Color and pulse Doppler interrogation was performed of both testicles. COMPARISON: [facility], , US SCROTUM, 06/09/2021, 19:47. FINDINGS: Right: Testicle is normal in size at 4.0 x 2.0 x 2.7 cm, and homogenous in echotexture. Epididymis is normal in overall size and morphology. Trace right hydrocele. No definite varicose sella. Overlying scrotal skin is normal in thickness. Left: Testicle is normal in size at 4.3 x 2.1 x 1.8 cm, and homogeneous in echotexture. Epididymis is normal in overall size and morphology. Small 6 mm simple cyst in the left epididymis. No hydrocele or varicoceles. Overlying scrotal skin is normal in thickness. Doppler: Color and pulse Doppler demonstrate normal and symmetric arterial flow in both testicles. IMPRESSION: No sonographic signs of testicular torsion or epididymitis. Trace right hydrocele. Dictated by: Valentin Shaver M.D. on 10/09/2021 at 10:13 Approved by: Valentin Shaver M.D. on 10/09/2021 at 10:16
[2021-10-09 09:30] VITALS: BP 159/75; PULSE 77; O2SAT 97
[2021-10-09 10:00] VITALS: PULSE 88; O2SAT 100
== END 2021-10-09 10:40 | disposition home or self-care (01) ==
PROVIDERS: Emergency Provider Emergency Medicine; PCP Family Medicine
DX: N50.812 Left testicular pain (principal); K59.03 Drug induced constipation; T40.2X5A Adverse effect of other opioids, initial encounter
CPT/HCPCS: 76870; 81003; 99282; 99283

== ENCOUNTER 2021-10-18 19:03 | Emergency (ER) | payer MEDICARE, MEDICAID, SELFPAY ==
[2021-05-15 09:01] VITALS: BMI 23.6
[2021-10-18 19:17] VITALS: BP 181/81; PULSE 66; RESP 17; TEMP 36.9; O2SAT 98; BMI 24.3
--- NOTE | 2021-10-18 19:24 | DI.RAD.S_ITS ---
PROCEDURE: XR FINGER LT MIN 2V INDICATIONS: Deep lac to distal left index finger TECHNIQUE: AP hand, 2 views of the index finger(s) acquired. COMPARISON: None. FINDINGS: Bones: No fractures or dislocations. No suspicious bony lesions. Soft tissues: Soft tissue injury of the tip of the index finger on the palmar side. IMPRESSION: Soft tissue injury. No fracture. Dictated by: John Tracey M.D. on 10/18/2021 at 19:49 Approved by: John Tracey M.D. on 10/18/2021 at 19:51
--- NOTE | 2021-10-18 19:39 | ED.WOUNDLAC ---
HPI - Wound/Laceration General Chief Complaint: Wound/Laceration Stated Complaint: Left 2nd digit sliced today Time Seen by Provider: 10/18/21 19:13 Source: patient Mode of arrival: Ambulatory Limitations: no limitations History of Present Illness HPI narrative: Patient is a 45-year-old male who is here for evaluation of a laceration to his left index finger. 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 He is up-to-date on his tetanus. He covered it with a bandage a came to the emergency department for evaluation. Patient does have cervical spinal stenosis and has tingling in his hands this is not new. Related Data Home Medications Medication Instructions Recorded Confirmed diazepam 5 mg tablet 5 mg PO BID 04/20/21 09/03/21 methylphenidate HCl 20 mg tablet 30 mg PO BID tab 04/20/21 09/03/21 prazosin 1 mg capsule 4 mg PO BEDTIME 04/27/21 09/03/21 Previous Rx's Medication Instructions Recorded fentanyl 25 mcg/hr transdermal 1 patch TRANSDERMAL Q72H #10 ea 10/12/21 patch oxycodone 5 mg tablet 5 mg PO BEDTIME PRN #30 tab 10/12/21 Allergies Allergy/AdvReac Type Severity Reaction Status Date / Time acetaminophen Allergy Severe Itching, Verified 09/03/21 13:10 red spots, vomiting olanzapine [From Zyprexa] AdvReac Severe Anxiety Verified 09/03/21 13:10 trazodone AdvReac Severe Priapism Verified 09/03/21 13:10 Review of Systems Musculoskeletal Musculoskeletal: Reports system reviewed and no additional complaints, except as documented Integumentary/Breasts Skin/Breast: Reports system reviewed and no additional complaints, except as documented Neurologic Neurologic: Reports system reviewed and no additional complaints, except as documented Hematologic/Lymphatic On Anticoagulants: No Patient History Medical History ADHD Back injury (11/11/19) Chicken pox Chronic back pain Concussion Easy bruisability Foot pain Fractures Hydrocele Mandible fracture PTSD (post-traumatic stress disorder) Shoulder pain Spinal stenosis Spondylolisthesis Surgical History Cataract extraction status, left eye Hx of shoulder surgery Social History household members: spouse Smoking Status: Current every day smoker alcohol intake: former Smoking Status: Current every day smoker tobacco type: cigarettes and smokeless tobacco alcohol intake frequency: other Substance Use Type: marijuana Exam Initial Vital Signs Initial Vital Signs: Vital Signs Temperature 98.5 F 10/18/21 19:17 Pulse Rate 66 10/18/21 19:17 Respiratory Rate 17 10/18/21 19:17 Blood Pressure 181/81 H 10/18/21 19:17 Pulse Oximetry 98 10/18/21 19:17 HENMT Head: normal to inspection and normocephalic Cardio Pulses: radial pulses present on the left Skin Other: 2 cm laceration on the volar aspect of the left index finger over the PIP joint.. Neuro Other: Decreased sensation to the distal aspect of the left index finger however this is not new. Extrem Other: Cut to the distal aspect left index finger although he is able to flex and extend both active and passive at the MCP [employer] IP joint. Procedures Laceration Repair Laceration 1: Site: other (Index finger) Side (If applicable): left Size (cm): 2 Description: linear and flap Depth: simple, single layer Local Anesthetic: lidocaine 1% and with bicarb Amount of anesthesia used (mL): 5 Pre-repair: wound explored and deep structures intact Skin layer closed with: nylon Skin layer suture size: 4-0 Number of sutures: 7 Technique: simple, interrupted Course Orders Ordered: ED Orders 10/18/21 19:24 XR finger LT min 2V Stat Discontinued Medications Bacitracin (Bacitracin Oint 0.9 Gm Pckt) 1 applic TOP NOW ONE Stop: 10/18/21 19:41 Last Admin: 10/18/21 19:44 Dose: 1 applic Documented by: STARLA Lidocaine/Sodium Bicarbonate (Lido 1%/Sod Bicarb 8.4% (10ml) 10 Ml Syringe) 10 ml INJ NOW ONE Stop: 10/18/21 19:41 Last Admin: 10/18/21 19:44 Dose: 10 ml Documented by: STARLA Vital Signs Vital signs: Vital Signs - 8 hr 10/18/21 19:17 10/18/21 20:32 Temperature 98.5 F Pulse Rate 66 56 L Respiratory Rate 17 15 Blood Pressure 181/81 H 137/65 Pulse Oximetry 98 [address] [facility] - Wound/Laceration Imaging Data Extremity x-ray #1: Radiologist's Impression: [address] [address] XRay Report Signed Patient: Rico Martínez MR#: [id number] : 1975 Acct:[id number] Age/Sex: 45 / M Date of Service: 10/18/21 Loc: ED Accession Number: [id number] ?? Procedure: XR finger LT min 2V Ordering Provider: Jose Rafael Hurt D.O. PROCEDURE:? XR FINGER LT MIN 2V ? INDICATIONS:? Deep lac to distal left index finger ? TECHNIQUE:? AP hand, 2 views of the index finger(s) acquired.? ? COMPARISON:? None. ? FINDINGS:? ? Bones:? No fractures or dislocations.? No suspicious bony lesions.? ? Soft tissues:? Soft tissue injury of the tip of the index finger on the palmar side. ? IMPRESSION:? Soft tissue injury.? No fracture. ? ? Dictated by: John Tracey M.D. on 10/18/2021 at 19:49 ? ? Approved by: John Tracey M.D. on 10/18/2021 at 19:[address] [facility] Narrative Medical decision making narrative: Patient does have decreased sensation to his left index finger her this is not new. Vascularly he is intact. Was a superficial wound without tendon involvement. Closed as described above. No indication for antibiotics. Patient is up to date on tetanus. He was given return precautions and follow-up instructions. He expressed understanding and agreement. Discharge Plan Departure Patient Disposition: Home Clinical Impression: Finger laceration Instructions: DI for Laceration Repair Activity Restrictions/Additional Instructions: Leave the bandages on for the next 24 hours. After that you can take it off and wash your hands like normal. Do not soak your hand anything until the wound is healed. The stitches will need to be removed in 7-10 days. Return to the emergency department for any new or worsening symptoms. Prescriptions: No Action fentanyl 25 mcg/hr patch 72 hour 1 patch transdermal Q72H Qty: 10 0RF oxycodone 5 mg tablet 5 mg PO BEDTIME PRN (Reason: pain) Qty: 30 0RF prazosin 1 mg Capsule 4 mg PO BEDTIME 0RF diazepam 5 mg tablet 5 mg PO BID 0RF methylphenidate HCl 20 mg tablet 30 mg PO BID 0RF Referrals: Geovanni Otero DO [Primary Care Provider] -
[2021-10-18] MEDS: LIDO 1%/SOD BICARB 8.4% (10ML) 10 ML SYRINGE INJ (19:44)
[2021-10-18] MEDS: BACITRACIN OINT 0.9 GM PCKT 1 APPLIC TOP (19:44)
[2021-10-18 20:32] VITALS: BP 137/65; PULSE 56; RESP 15; O2SAT 97
== END 2021-10-18 20:34 | disposition home or self-care (01) ==
PROVIDERS: Emergency Provider Emergency Medicine; PCP Family Medicine
DX: S61.211A Laceration without foreign body of left index finger without damage to nail, initial encounter (principal); F17.210 Nicotine dependence, cigarettes, uncomplicated; F17.290 Nicotine dependence, other tobacco product, uncomplicated; W45.8XXA Other foreign body or object entering through skin, initial encounter; Y93.89 Activity, other specified
CPT/HCPCS: 12001; 73140; 99283